=== PATIENT | female | born 1935 | race Hispanic/Latino ===

== ENCOUNTER 2017-02-13 13:05 | Emergency (ER) | payer MEDICARE, OTHER ==
[2017-02-13] MEDS ORDERED: NORCO 5/325 PO PRN (13:32)
[2017-02-13 13:37] VITALS: BP 107/58
[2017-02-13] MEDS ORDERED: BOOSTRIX IM ONE (13:48)
--- NOTE | 2017-02-13 13:57 | Emergency Department Report ---
HPI - General Chief Complaint: Fall Time Seen by Provider: 02/13/17 13:24 - HPI HPI: Room 7 The patient is an 81-year-old female presenting with a chief complaint of head injury after fall. The patient states she was working in the yard trying to pull up a plant when it gave way causing her to fall backwards and strike her head on a wooden rail. Patient denies loss of consciousness. The patient states the injury occurred at approximately noon. The patient is currently on Coumadin for atrial fibrillation. The patient gives her pain a score of 8/10 but currently refuses pain medication Location: Head Duration: Occurred at noon Quality: Headache Severity: 8/10 Modifying factors: [see above] Context: [see above] Mode of transportation: [not driving] ED Past Medical Hx - Past Medical History Previous Medical History?: Yes Hx Hypertension: Yes Hx Heart Attack/AMI: Yes Hx Congestive Heart Failure: Yes Hx Diabetes: Yes Hx Kidney Stones: Yes Hx COPD: Yes Additional medical history: Afib - Surgical History Past Surgical History?: Yes Hx Appendectomy: Yes - Family History Family history: no significant - Social History Smoking Status: Never Smoker Substance Use Type: None - Medications Home Medications: Home Medications Medication Instructions Recorded Confirmed Last Taken Type Isosorbide Mononitrate [Isosorbide 60 mg PO DAILY 12/27/13 06/29/15 06/29/15 History Mononitrate ER] Nefazodone HCl 100 mg PO BID 12/27/13 06/29/15 06/29/15 History Warfarin Sodium [Coumadin] 2 mg PO DAILY 12/27/13 06/29/15 06/29/15 History Atorvastatin Calcium [Lipitor] 20 mg PO QHS 01/30/15 06/29/15 06/28/15 History Aspirin [Aspirin BABY CHEW TAB] 81 mg PO DAILY 06/30/15 06/30/15 1 Day Ago History Digoxin [Lanoxin] 0.125 mg PO DAILY@1700 #30 tablet 07/02/15 Unknown Rx Budesonide [Pulmicort Respules] 0.5 mg IH Q12HRT #60 nebu 07/09/15 Unknown Rx Cefuroxime [Ceftin] 250 mg PO Q12HR #14 tablet 07/09/15 Unknown Rx Insulin Glargine [Lantus VIAL] 30 unit SUB-Q QHS #1 vial 07/09/15 06/29/1506/29 Rx Ipratropium/Albuterol Sulfate 1 ampul IH TIDRT PRN #60 ampul.neb 07/09/15 Unknown Rx [DUONEB *Not for PRN Use*] Metoprolol [Lopressor TAB] 0.5 tab PO TID #60 tablet 07/09/15 Unknown Rx amLODIPine [Norvasc] 0.5 tab PO QDAY #30 tablet 07/09/15 Unknown Rx Cephalexin [Keflex] 500 mg PO Q6H #28 cap 02/13/17 Unknown Rx traMADol [Ultram] 50 mg PO Q6HR PRN #14 tablet 02/13/17 Unknown Rx ED Review of Systems ROS: Stated complaint: LACERATION TO THE HEAD Other details as noted in HPI Comment: All other systems reviewed and negative Constitutional: denies: chills, fever Eyes: denies: eye pain, eye discharge, vision change ENT: denies: ear pain, throat pain Respiratory: denies: cough, shortness of breath, wheezing Cardiovascular: denies: chest pain, palpitations Endocrine: no symptoms reported Gastrointestinal: denies: abdominal pain, nausea, diarrhea Genitourinary: denies: urgency, dysuria, discharge Musculoskeletal: denies: back pain, joint swelling, arthralgia Skin: other (scalp laceration) Neurological: headache Psychiatric: denies: anxiety, depression Hematological/Lymphatic: denies: easy bleeding, easy bruising Physical Exam - Physical Exam Vital Signs: Vital Signs 02/13/17 13:36 Temperature 97.7 F Pulse Rate 66 Respiratory 16 Rate Blood Pressure 107/58 [Left] O2 Sat by Pulse 96 Oximetry Physical Exam: GENERAL: The patient is well-developed well-nourished female lying on stretcher with bandage in place on her head not appearing to be in acute distress. [] HEENT: Normocephalic. Extraocular motions are intact. Patient has moist mucous membranes. Approximately with 2.5 cm longitudinal laceration to the occiput. Hemostatic NECK: Supple. Recommend midline CHEST/LUNGS: Clear to auscultation. There is no respiratory distress noted. HEART/CARDIOVASCULAR: Regular. There is no tachycardia. There is no gallop rub or murmur. ABDOMEN: Abdomen is soft, nontender. Patient has normal bowel sounds. There is no abdominal distention. SKIN: There is an approximately 2.5 cm laceration to the occiput. There is no diaphoresis. NEURO: The patient is awake, alert, and oriented. The patient is cooperative. The patient has no focal neurologic deficits. The patient has normal speech. Cranial nerves II through XII grossly intact, no drift MUSCULOSKELETAL: There is no limitation range of motion. ED Course Vital Signs 02/13/17 13:36 Temperature 97.7 F Pulse Rate 66 Respiratory 16 Rate Blood Pressure 107/58 [Left] O2 Sat by Pulse 96 Oximetry ED Medical Decision Making - Lab Data Result diagrams: 02/13/17 13:32 02/13/17 13:32 - Radiology Data Radiology results: report reviewed (CT head, CT cervical spine), image reviewed (CT head, CT cervical spine) CT head (read by radiologist)-no posterior parietal scalp swelling/hematoma with stable age appropriate atrophy, mild microvascular changes and chronic sinusitis amongst others. No definite acute infarct, hemorrhage, mass effect or midline shift. The cervical spine (read by radiologist)-no acute cervical spine CT abnormality with multilevel degenerative changes again greatest at C5-C6. - Differential Diagnosis ICH, scalp laceration, closed head injury, cervical fracture Critical care attestation.: If time is entered above; I have spent that time in minutes in the direct care of this critically ill patient, excluding procedure time. ED Disposition Clinical Impression: Closed head injury, Occipital scalp laceration Disposition: - TO HOME OR SELFCARE Is pt being admited?: No Does the pt Need Aspirin: No Condition: Stable Instructions: Laceration (ED), Staple Care (ED) Additional Instructions: You should return to the emergency department or follow-up with your primary physician in 7 days to have your dustin removed. Return to the emergency department immediately should you develop worsening symptoms, fever, inability to tolerate food or liquid or any other concerns. Prescriptions: Cephalexin [Keflex] 500 mg PO Q6H #28 cap traMADol [Ultram] 50 mg PO Q6HR PRN #14 tablet PRN Reason: Pain Referrals: PRIMARY CARE,MD [Primary Care Provider] - 7-10 days (You should follow up with your primary physician or return to the emergency department in 7 days to have your dustin removed) Time of Disposition: 15:11 Blank Doc - Documentation Documentation: Laceration note Consent was obtained verbally Length of wound: 2.5 cm The wound was anesthetized with lidocaine 1% with epinephrine approximately I mL 's Wound was copiously irrigated with normal saline Site was prepped with peroxide Was closed with 3 dustin The wound had good approximation The wound had good hemostasis Antibiotic ointment was applied and the wound was dressed Staple removal discussed with patient and informed the pupils need to be removed in 7 days Laceration type: Simple There were no complications
[2017-02-13 14:04] LABS: BUN/Creatinine Ratio 26.08; Basophils % (Auto) 1.2 % (0.0-1.8); Calcium 9.1 mg/dL (8.4-10.2); Chloride 105.7 mmol/L (98-107); Eosinophils % (Auto) 5.8 % (0.0-4.3); Hematocrit 37.5 % (30.3-42.9); Hemoglobin 12.4 gm/dl (10.1-14.3); Mean Corpuscular HGB Conc 33 % (30-34); Mean Corpuscular Hemoglobin 32 pg (28-32); Mean Corpuscular Volume 97 fl (79-97); Platelet Count 232 K/mm3 (140-440); Potassium 4.9 mmol/L (3.6-5.0); Red Blood Count 3.86 M/mm3 (3.65-5.03); Red Cell Distribution Width 13.9 % (13.2-15.2); White Blood Count 7.1 K/mm3 (4.5-11.0)
[2017-02-13 14:12] LABS: INR 1.65 (0.87-1.13)
[2017-02-13 14:13] LABS: Partial Thromboplastin Time 32.2 Sec. (24.2-36.6)
--- NOTE | 2017-02-13 14:32 | Cat Scan Report ---
CT HEAD WITHOUT CONTRAST INDICATION: Fall, head laceration. COMPARISON: 06/21/2014. FINDINGS: Noncontrast head CT again demonstrates age appropriate ventricles and mildly enlarged sulci, more so bifrontal with extraaxial CSF spaces measuring up to 7 mm as on axial image 26, series 4. Mild periventricular hypodensities. No definite acute infarct, hemorrhage, mass effect or midline shift. No abnormal extra axial fluid collections. Normal posterior fossa with preserved basilar cisterns. Bilateral cataract surgery. Mild nasal septal deviation. Mild density/opacification of the right sphenoid sinus again seen. Mild bilateral maxillary sinus mucosal with wall thickening, more so on the right. Clear remainder imaged paranasal sinuses and mastoid air cells. Extensive atherosclerotic ICA and vertebral artery calcifications. Intact calvarium with mild hyperostosis frontalis interna. High right paramidline scalp swelling/hematoma posteriorly is new, axial image 49. CONCLUSION: New posterior parietal scalp swelling/hematoma with stable age appropriate atrophy, mild microvascular changes and chronic sinusitis, amongst others, as described. Thank you for the opportunity to participate in this patient's care.
[2017-02-13] MEDS ORDERED: XYLOCAINE 1%/ EPI 1:100,000 INFILTRATI ONE (14:42)
[2017-02-13] MEDS ORDERED: NACL 0.9% 500 ML IR ONE (14:42)
[2017-02-13] MEDS ORDERED: HYDROGEN PEROXIDE ONE (14:46)
--- NOTE | 2017-02-13 14:47 | Cat Scan Report ---
CT CERVICAL SPINE WITHOUT CONTRAST INDICATION: Fall, head laceration. COMPARISON: 06/21/[address] FINDINGS: Noncontrast axial, sagittal and coronal CT reconstructions through the cervical spine demonstrate mild right sphenoid sinus density. Clear mastoid air cells and imaged intracranial appearance. Streak artifact from few radiopaque dental material. Numerous missing teeth also seen. Assessment of the spinal canal compromised from C5 inferiorly due to artifact from shoulder soft tissues. Grossly intact craniocervical articulation with normal dens, predental space and prevertebral soft tissues. Normal posterior elements. Patent airway. Clear imaged lung apices. Normal size thyroid. On the obtained axial images: C2-C3 and C3-C4 demonstrate moderate to severe right and mild left facet arthropathy. Mild right neural foraminal narrowing. Slight, 1-2 mm anterolisthesis of C3 over C4. C4-C5 demonstrates moderate to severe bilateral facet arthropathy. Mild left neural foraminal narrowing. C5-C6 demonstrates severe disc narrowing. Degenerative spurring, greatest uncovertebral and left paracentral, possibly contacting/indenting the cord, axial image 99, series 6. Moderate to severe left and [id number] right neural foraminal narrowing. C6-C7 also demonstrates moderate disc narrowing. Diffuse spurring, more so anteriorly. No significant neural foraminal narrowing or large disc protrusion. C7-T1 suggest mild bilateral facet arthropathy. No significant neural foramina narrowing. CONCLUSION: No acute cervical spine CT abnormality with multilevel degenerative changes, again greatest at C5-C6 and few other findings, including right sphenoid sinus disease, as detailed above. Thank you for the opportunity to participate in this patient's care.
[2017-02-13] MEDS ORDERED: TRIPLE ANTIBIOTIC TP ONE (15:04)
== END 2017-02-13 15:31 | disposition home or self-care (01) ==
LOC: ED 13:05
DX: S01.01XA Laceration without foreign body of scalp, initial encounter (principal); I11.0 Hypertensive heart disease with heart failure; I50.9 Heart failure, unspecified; I25.2 Old myocardial infarction; E11.9 Type 2 diabetes mellitus without complications; J44.9 Chronic obstructive pulmonary disease, unspecified; Z79.01 Long term (current) use of anticoagulants; Z79.4 Long term (current) use of insulin; W18.30XA Fall on same level, unspecified, initial encounter; Y93.89 Activity, other specified; Y92.89 Other specified places as the place of occurrence of the external cause; Y99.8 Other external cause status
CPT/HCPCS: 36415; 70450; 72125; 80048; 80162; 85025; 85610; 85730; 90471; 90715; 99284; A6250

== ENCOUNTER 2017-02-20 11:00 | Emergency (ER) | payer MEDICARE, OTHER ==
--- NOTE | 2017-02-20 13:18 | Emergency Department Report ---
Suture/Staple Removal - [facility] Chief Complaint: Laceration/Recheck/Suture Stated Complaint: STAPLE REMOVAL Time Seen by Provider: 02/20/17 11:38 When Sutures or Dustin Placed: 5-7 Days Ago Wound Location: occipital scalp ED Review of Systems ROS: Stated complaint: STAPLE REMOVAL Other details as noted in HPI Constitutional: denies: chills, fever Eyes: denies: eye pain, eye discharge, vision change ENT: denies: ear pain, throat pain Respiratory: denies: cough, shortness of breath, wheezing Cardiovascular: denies: chest pain, palpitations Endocrine: no symptoms reported Gastrointestinal: denies: abdominal pain, nausea, diarrhea Genitourinary: denies: urgency, dysuria, discharge Musculoskeletal: denies: back pain, joint swelling, arthralgia Skin: denies: rash, lesions Neurological: denies: headache, weakness, paresthesias Psychiatric: denies: anxiety, depression Hematological/Lymphatic: denies: easy bleeding, easy bruising ED Past Medical Hx - Past Medical History Hx Hypertension: Yes Hx Heart Attack/AMI: Yes Hx Congestive Heart Failure: Yes Hx Diabetes: Yes Hx Kidney Stones: Yes Hx Asthma: No Hx COPD: Yes Additional medical history: Afib - Surgical History Hx Cholecystectomy: Yes Hx Appendectomy: Yes - Social History Smoking Status: Never Smoker Substance Use Type: None - Medications Home Medications: Home Medications Medication Instructions Recorded Confirmed Last Taken Type Isosorbide Mononitrate [Isosorbide 60 mg PO DAILY 12/27/13 06/29/15 06/29/15 History Mononitrate ER] Nefazodone HCl 100 mg PO BID 12/27/13 06/29/15 06/29/15 History Warfarin Sodium [Coumadin] 2 mg PO DAILY 12/27/13 06/29/15 06/29/15 History Atorvastatin Calcium [Lipitor] 20 mg PO QHS 01/30/15 06/29/15 06/28/15 History Aspirin [Aspirin BABY CHEW TAB] 81 mg PO DAILY 06/30/15 06/30/15 1 Day Ago History Digoxin [Lanoxin] 0.125 mg PO DAILY@1700 #30 tablet 07/02/15 Unknown Rx Budesonide [Pulmicort Respules] 0.5 mg IH Q12HRT #60 nebu 07/09/15 Unknown Rx Cefuroxime [Ceftin] 250 mg PO Q12HR #14 tablet 07/09/15 Unknown Rx Insulin Glargine [Lantus VIAL] 30 unit SUB-Q QHS #1 vial 07/09/15 06/29/1506/29 Rx Ipratropium/Albuterol Sulfate 1 ampul IH TIDRT PRN #60 ampul.neb 07/09/15 Unknown Rx [DUONEB *Not for PRN Use*] Metoprolol [Lopressor TAB] 0.5 tab PO TID #60 tablet 07/09/15 Unknown Rx amLODIPine [Norvasc] 0.5 tab PO QDAY #30 tablet 07/09/15 Unknown Rx Cephalexin [Keflex] 500 mg PO Q6H #28 cap 02/13/17 Unknown Rx traMADol [Ultram] 50 mg PO Q6HR PRN #14 tablet 02/13/17 Unknown Rx Suture Removal Exam - Exam General: Vital signs noted. No distress. Alert and acting appropriately. Wound: No Pathologic Erythema, No Tenderness, No Drainage, No Pus, No Wound Dehiscence Other Systems: All other systems reviewed and are unremarkable. GENERAL: The patient is a well-developed, well-nourished female in no apparent distress. Patient is alert and acting appropriately for age. Alert and oriented 3, no apparent distress, normal gait, atraumatic. HEENT: Head is normocephalic and atraumatic. PERRL, Extraocular muscles are intact. Pupils are equal, round, and reactive to light and accommodation. Nares appeared normal. Mouth is well hydrated and without lesions. Mucous membranes are moist. Posterior pharynx clear of any exudate or lesions. Mouth is well hydrated and without lesions. Tonsils not erythematous or swollen. Uvula midline. Tongue elevated. Mucous members are moist. Posterior pharynx clear, no exudate or lesions. Patent airways. NECK: Supple. No carotid bruits. No lymphadenopathy or thyromegaly.nontender. No meningitic signs are noted. LUNGS: Clear to auscultation. Non labor breathing. No intercostal retractions. Symmetrical with respiration, no wheezing, no rales, or crackles. HEART: Regular rate and rhythm without murmur, rubs or gallops. No reproducible. S1, S2 present, regular rate and rhythm without murmur, no rubs, no gallops. ABDOMEN: Soft, nontender, and nondistended. Positive bowel sounds. No hepatosplenomegaly was noted. No guarding or rebound tenderness, negative epigastric bruit. Negative psoas sign, negative kirkland sign, negative McBurneys sign EXTREMITIES: Without any cyanosis, clubbing, rash, lesions or edema. Peripheral pulses intact. Capillary refill less than 2 seconds. Full range of motion bilaterally. NEUROLOGIC: Cranial nerves II through XII are grossly intact. Alert and oriented x 3. Normal gait. Symmetrical strength and sensation. Reflexes 2+ throughout. Cerebellar testing normal. GCS score of 15. PSYCHIATRIC: Normal affect with no suicidal or homicidal ideations. Scalp; 3 dustin noted to the occipital scalp region. No swelling. No pus. No drainage. Nontender to touch. No cellulitis noted. ED Course Vital Signs 02/20/17 11:24 Temperature 97.9 F Pulse Rate 82 Respiratory 17 Rate Blood Pressure 101/69 O2 Sat by Pulse 95 Oximetry - Reevaluation(s) Reevaluation #1: 02/20/17 13:16 Patient is able to speak in full sentences with no signs of distress noted. ED Recheck MDM - Medical Decision Making This is a 81-year-old female that presents with stable removal. Patient received dustin last week 7 days ago. Total number of dustin is 3 to the occipital region. Patient stated also recent CT scan after the patient fell with normal findings. Patient denies any headache, chest pain, short of breath , fever, chills, pus, drainage, nausea or vomiting. Patient stated finish full course of the buttock that was prescribed. 3 dustin has been removed and patient thought well with no signs of distress. Critical care attestation.: If time is entered above; I have spent that time in minutes in the direct care of this critically ill patient, excluding procedure time. ED Disposition Clinical Impression: Removal of staple Disposition: DC-01 TO HOME OR SELFCARE Is pt being admited?: No Does the pt Need Aspirin: No Condition: Stable Instructions: Staple Care (ED) Additional Instructions: Follow-up with her primary care doctor in 3-5 days or symptoms such as pus, drainage, open laceration, stiff neck, headache, fever or chills return to the emergency room as soon as possible. Referrals: NORA IRVIN MD [Primary Care Provider] - 3-5 Days MAJOR CHAU MD [Staff Physician] - 3-5 Days [facility] [Outside] - 3-5 Days [facility] [Outside] - 3-5 Days
[2017-02-20 13:28] VITALS: BP 114/66
== END 2017-02-20 13:28 | disposition home or self-care (01) ==
LOC: ED 11:00
DX: Z48.02 Encounter for removal of sutures (principal)

== ENCOUNTER 2018-09-23 17:56 | Inpatient (IN) | payer MEDICARE, OTHER ==
--- NOTE | 2018-09-23 18:39 | Emergency Department Report ---
- General Chief complaint: Dyspnea/Respdistress Stated complaint: LIGHT HEADED/SWELLING IN LEG Time Seen by Provider: 09/23/18 18:19 Source: patient, RN notes reviewed, old records reviewed Mode of arrival: Wheelchair Limitations: Physical Limitation - History of Present Illness Initial comments: Nephrology: Dr Casey Information Technology Security Manager: Dr. Efrain Arora Past medical history: Atrial fibrillation, hypertension, chronic renal insufficiency, congestive heart failure, ejection fraction 15-20%, pulmonary hypertension, chronic respiratory failure, on home oxygen. 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 The patient endorses shortness of breath, chronic lower extremity swelling, and dizziness and sensation of unsteady gait. Symptoms are constant, worse with physical exertion, and decreased with rest. The patient reports chronic cough and chronic shortness of breath. She denies urinary symptoms. She denies hematemesis, right red blood per rectum. MD Complaint: generalized weakness -: Gradual, week(s) Location: generalized Consistency: constant Improves with: rest Worsens with: movement Associated Symptoms: loss of appetite, shortness of breath - Related Data Home Medications Medication Instructions Recorded Confirmed Last Taken Isosorbide Mononitrate [Isosorbide 60 mg PO DAILY 12/27/13 09/23/18 06/29/15 Mononitrate ER] Nefazodone HCl 100 mg PO BID 12/27/13 09/23/18 06/29/15 Aspirin [Aspirin BABY CHEW TAB] 81 mg PO DAILY 06/30/15 09/23/18 1 Day Ago ~06/29/15 Previous Rx's Medication Instructions Recorded Last Taken Type Budesonide [Pulmicort Respules] 0.5 mg IH Q12HRT #60 nebu 07/09/15 Unknown Rx Insulin Glargine [Lantus VIAL] 30 unit SUB-Q QHS #1 vial 07/09/15 06/29/15 Rx Ipratropium/Albuterol Sulfate 1 ampul IH TIDRT PRN #60 ampul.neb 07/09/15 Unknown Rx [DUONEB *Not for PRN Use*] amLODIPine [Norvasc] 0.5 tab PO QDAY #30 tablet 07/09/15 Unknown Rx traMADol [Ultram] 50 mg PO Q6HR PRN #14 tablet 02/13/17 Unknown Rx Allergies Allergy/AdvReac Type Severity Reaction Status Date / Time No Known Allergies Allergy Verified 09/23/18 18:01 ED Review of Systems ROS: Stated complaint: LIGHT HEADED/SWELLING IN LEG Other details as noted in HPI Constitutional: malaise Eyes: denies: vision change ENT: congestion. denies: epistaxis Respiratory: cough, shortness of breath Cardiovascular: edema. denies: chest pain Gastrointestinal: denies: abdominal pain, nausea, vomiting, hematemesis, melena, hematochezia Genitourinary: denies: dysuria Musculoskeletal: other (lower extremity swelling) Skin: denies: lesions Neurological: weakness ED Past Medical Hx - Past Medical History Hx Hypertension: Yes Hx Heart Attack/AMI: Yes Hx Congestive Heart Failure: Yes Hx Diabetes: Yes Hx Kidney Stones: Yes Hx Asthma: No Hx COPD: Yes Additional medical history: Afib - Surgical History Hx Cholecystectomy: Yes Hx Appendectomy: Yes - Social History Smoking Status: Never Smoker Substance Use Type: None - Medications Home Medications: Home Medications Medication Instructions Recorded Confirmed Last Taken Type Isosorbide Mononitrate [Isosorbide 60 mg PO DAILY 12/27/13 09/23/18 06/29/15 History Mononitrate ER] Nefazodone HCl 100 mg PO BID 12/27/13 09/23/18 06/29/15 History Aspirin [Aspirin BABY CHEW TAB] 81 mg PO DAILY 06/30/15 09/23/18 1 Day Ago History ~06/29/15 Budesonide [Pulmicort Respules] 0.5 mg IH Q12HRT #60 nebu 07/09/15 09/23/18 Unknown Rx Insulin Glargine [Lantus VIAL] 30 unit SUB-Q QHS #1 vial 07/09/15 09/23/18 06/29/15 Rx Ipratropium/Albuterol Sulfate 1 ampul IH TIDRT PRN #60 ampul.neb 07/09/15 09/23/18 Unknown Rx [DUONEB *Not for PRN Use*] amLODIPine [Norvasc] 0.5 tab PO QDAY #30 tablet 07/09/15 09/23/18 Unknown Rx traMADol [Ultram] 50 mg PO Q6HR PRN #14 tablet 02/13/17 09/23/18 Unknown Rx ED Physical Exam - General Limitations: Physical Limitation General appearance: alert, in no apparent distress - Head Head exam: Present: atraumatic, normocephalic - Eye Eye exam: Present: normal appearance, EOMI. Absent: nystagmus - ENT ENT exam: Present: normal exam, normal orophraynx, mucous membranes moist, normal external ear exam - Neck Neck exam: Present: normal inspection, full ROM. Absent: tenderness, meningismus - Respiratory Respiratory exam: Present: rales, rhonchi. Absent: respiratory distress - Cardiovascular Cardiovascular Exam: Present: regular rate, irregular rhythm, normal heart soun ds. Absent: bradycardia, tachycardia, systolic murmur, diastolic murmur, rubs, gallop - GI/Abdominal GI/Abdominal exam: Present: soft. Absent: distended, tenderness, guarding, rebound, rigid, pulsatile mass - Extremities Exam Extremities exam: Present: normal inspection, pedal edema (2+ edema in the lower extremities), other (2+ pulses noted in the bilateral upper, lower extremities. Compartments soft. No long bony tenderness. The pelvis is stable.). Absent: calf tenderness - Back Exam Back exam: Present: normal inspection, full ROM. Absent: tenderness, CVA tenderness (R), paraspinal tenderness, vertebral tenderness - Neurological Exam Neurological exam: Present: alert, oriented X3, other (Extraocular movements intact. Tongue midline. No facial droop. Facial sensation intact to light touch in the V1, V2, V3 distribution bilaterally. 5 and 5 strength in 4 extremities.. Sensation is intact to light touch in 4 extremities.). Absent: motor sensory deficit - Psychiatric Psychiatric exam: Present: normal affect, normal mood - Skin Skin exam: Present: warm, dry, intact, normal color. Absent: rash - Assessment Assessment Interval: Baseline - Level of Consciousness 1a. Level of Consciousness: alert/keenly responsive - LOC Questions 1b. LOC Questions: answers both correctly - LOC Command 1c. LOC Commands: performs tasks correctly - Best Gaze 2. Best Gaze: normal - Visual 3. Visual: no visual loss - Facial Palsy 4. Facial Palsy: normal symmetrical movement - Motor Arm 5b. Motor Arm Right: no drift 5a. Motor Arm Left: no drift - Motor Leg 6b. Motor Leg Right: no drift 6a. Motor Leg Left: no drift - Limb Ataxia 7. Limb Ataxia: absent - Sensory 8. Sensory: normal - Best Language 9. Best Language: no aphasia - Dysarthria 10. Dysarthria: normal - Extinction and Inattention 11. Extinction/Inattention: no abnormality - Scoring Total Score: 0 Stroke Severity: No Stroke Symptoms ED Course Vital Signs 09/23/18 09/23/18 09/23/18 18:19 18:46 19:35 Temperature 97.4 F L Pulse Rate 84 99 H 122 H Respiratory 18 19 Rate Blood Pressure 146/75 136/76 Blood Pressure 151/74 [Left] O2 Sat by Pulse 95 95 95 Oximetry - Reevaluation(s) Reevaluation #1: 09/23/18 20:03 Differential diagnosis, including but not limited to: Pneumonia, urinary tract infection, intra-abdominal bleeding, intracranial bleeding, retroperitoneal hematoma, deconditioning, congestive heart failure, renal insufficiency, cardiorenal syndrome Assessment and plan: 83-year-old female with multiple medical comorbidities, initially hypoxic, with crackles, rales, lower extremity edema, x-ray of the chest suggests bilateral pleural effusions, right greater than left, also corroborated on noncontrast CT scan. Extensive discussion had with patient and . The patient and report that she is currently full code. We will give the patient high-dose Lasix, discussed with her trolley collector on- call, and admit the patient to the medical service. Reevaluation #2: 09/23/18 21:16 Dr Parks accepts to the medical service - Consultations Consultation #1: 09/23/18 20:14 Discussed with nephrology consultation, Dr. Howard, whose group will follow in consultation. ED Medical Decision Making - Lab Data Result diagrams: 09/23/18 18:42 09/23/18 18:42 Vital Signs 09/23/18 09/23/18 09/23/18 18:19 18:46 19:35 Temperature 97.4 F L Pulse Rate 84 99 H 122 H Respiratory 18 19 Rate Blood Pressure 146/75 136/76 Blood Pressure 151/74 [Left] O2 Sat by Pulse 95 95 95 Oximetry Lab Results 09/23/18 09/23/18 09/23/18 Range/Units 18:21 18:42 18:42 WBC 8.1 (4.5-11.0) K/mm3 RBC 2.93 L (3.65-5.03) M/mm3 Hgb 9.2 L (10.1-14.3) gm/dl Hct 28.4 L (30.3-42.9) % MCV 97 (79-97) fl MCH 31 (28-32) pg MCHC 32 (30-34) % RDW 14.8 (13.2-15.2) % Plt Count 405 (140-440) K/mm3 Lymph % (Auto) 10.5 L (13.4-35.0) % [place] % (Auto) 7.5 H (0.0-7.3) % Eos % (Auto) 3.1 (0.0-4.3) % Baso % (Auto) 0.9 (0.0-1.8) % Lymph # 0.9 L (1.2-5.4) K/mm3 [place] # 0.6 (0.0-0.8) K/mm3 Eos # 0.3 (0.0-0.4) K/mm3 Baso # 0.1 (0.0-0.1) K/mm3 Seg Neutrophils % 78.0 H (40.0-70.0) % Seg Neutrophils # 6.4 (1.8-7.7) K/mm3 Sodium 140 (137-145) mmol/L Potassium 4.0 (3.6-5.0) mmol/L Chloride 97.9 L (98-107) mmol/L Carbon Dioxide 30 (22-30) mmol/L Anion Gap 16 mmol/L BUN 44 H (7-17) mg/dL Creatinine 2.4 H (0.7-1.2) mg/dL Estimated GFR 19 ml/min BUN/Creatinine Ratio 18 % Glucose 116 H (65-100) mg/dL POC Glucose 92 (70-105) Lactic Acid (0.7-2.0) mmol/L Calcium 9.6 (8.4-10.2) mg/dL Total Bilirubin 0.60 (0.1-1.2) mg/dL AST 16 (5-40) units/L ALT 8 (7-56) units/L Alkaline Phosphatase 69 (35-129) units/L NT-Pro-B Natriuret Pep 9661 H (0-900) pg/mL Total Protein 7.0 (6.3-8.2) g/dL Albumin 3.6 L (3.9-5) g/dL Albumin/Globulin Ratio 1.1 % TSH (0.270-4.200) mlU/mL Digoxin (0.9-2.0) ng/mL Salicylates (2.8-20.0) mg/dL Acetaminophen (10.0-30.0) ug/mL 09/23/18 09/23/18 09/23/18 Range/Units 18:42 18:42 18:42 WBC (4.5-11.0) K/mm3 RBC (3.65-5.03) M/mm3 Hgb (10.1-14.3) gm/dl Hct (30.3-42.9) % MCV (79-97) fl MCH (28-32) pg MCHC (30-34) % RDW (13.2-15.2) % Plt Count (140-440) K/mm3 Lymph % (Auto) (13.4-35.0) % [place] % (Auto) (0.0-7.3) % Eos % (Auto) (0.0-4.3) % Baso % (Auto) (0.0-1.8) % Lymph # (1.2-5.4) K/mm3 [place] # (0.0-0.8) K/mm3 Eos # (0.0-0.4) K/mm3 Baso # (0.0-0.1) K/mm3 Seg Neutrophils % (40.0-70.0) % Seg Neutrophils # (1.8-7.7) K/mm3 Sodium (137-145) mmol/L Potassium (3.6-5.0) mmol/L Chloride (98-107) mmol/L Carbon Dioxide (22-30) mmol/L Anion Gap mmol/L BUN (7-17) mg/dL Creatinine (0.7-1.2) mg/dL Estimated GFR ml/min BUN/Creatinine Ratio % Glucose (65-100) mg/dL POC Glucose (70-105) Lactic Acid 0.80 (0.7-2.0) mmol/L Calcium (8.4-10.2) mg/dL Total Bilirubin (0.1-1.2) mg/dL AST (5-40) units/L ALT (7-56) units/L Alkaline Phosphatase (35-129) units/L NT-Pro-B Natriuret Pep (0-900) pg/mL Total Protein (6.3-8.2) g/dL Albumin (3.9-5) g/dL Albumin/Globulin Ratio % TSH 1.400 (0.270-4.200) mlU/mL Digoxin 0.3 L (0.9-2.0) ng/mL Salicylates < 0.3 L (2.8-20.0) mg/dL Acetaminophen (10.0-30.0) ug/mL 09/23/18 Range/Units 18:49 WBC (4.5-11.0) K/mm3 RBC (3.65-5.03) M/mm3 Hgb (10.1-14.3) gm/dl Hct (30.3-42.9) % MCV (79-97) fl MCH (28-32) pg MCHC (30-34) % RDW (13.2-15.2) % Plt Count (140-440) K/mm3 Lymph % (Auto) (13.4-35.0) % [place] % (Auto) (0.0-7.3) % Eos % (Auto) (0.0-4.3) % Baso % (Auto) (0.0-1.8) % Lymph # (1.2-5.4) K/mm3 [place] # (0.0-0.8) K/mm3 Eos # (0.0-0.4) K/mm3 Baso # (0.0-0.1) K/mm3 Seg Neutrophils % (40.0-70.0) % Seg Neutrophils # (1.8-7.7) K/mm3 Sodium (137-145) mmol/L Potassium (3.6-5.0) mmol/L Chloride (98-107) mmol/L Carbon Dioxide (22-30) mmol/L Anion Gap mmol/L BUN (7-17) mg/dL Creatinine (0.7-1.2) mg/dL Estimated GFR ml/min BUN/Creatinine Ratio % Glucose (65-100) mg/dL POC Glucose (70-105) Lactic Acid (0.7-2.0) mmol/L Calcium (8.4-10.2) mg/dL Total Bilirubin (0.1-1.2) mg/dL AST (5-40) units/L ALT (7-56) units/L Alkaline Phosphatase (35-129) units/L NT-Pro-B Natriuret Pep (0-900) pg/mL Total Protein (6.3-8.2) g/dL Albumin (3.9-5) g/dL Albumin/Globulin Ratio % TSH (0.270-4.200) mlU/mL Digoxin (0.9-2.0) ng/mL Salicylates (2.8-20.0) mg/dL Acetaminophen < 5.0 L (10.0-30.0) ug/mL - EKG Data -: EKG Interpreted by Me - EKG Data 09/23/18 20:03 Atrial fibrillation, 91 bpm, normal axis, low voltage, QTC prolonged, T-wave inversions in the lateral leads, abnormal EKG, consistent with ST elevation myocardial infarction, appears unchanged from prior EKG from 06/29/2015. - Radiology Data Radiology results: pending, report reviewed, image reviewed Noncontrast CT scan of the brain is negative for acute disease. Critical Care Time: Yes Critical care time in (mins) excluding proc time.: 35 Critical care attestation.: If time is entered above; I have spent that time in minutes in the direct care of this critically ill patient, excluding procedure time. ED Disposition Clinical Impression: Cardiorenal syndrome with renal failure Disposition: OP ADMIT IP TO THIS HOSP Is pt being admited?: Yes Does the pt Need Aspirin: No Condition: Fair Referrals: PRIMARY CARE, [Primary Care Provider] - 3-5 Days
[2018-09-23 18:59] LABS: Basophils # (Auto) 0.1 K/mm3 (0.0-0.1); Basophils % (Auto) 0.9 % (0.0-1.8); Eosinophils # (Auto) 0.3 K/mm3 (0.0-0.4); Eosinophils % (Auto) 3.1 % (0.0-4.3); Hematocrit 28.4 % (30.3-42.9); Hemoglobin 9.2 gm/dl (10.1-14.3); Lymphocytes # (Auto) 0.9 K/mm3 (1.2-5.4); Lymphocytes % (Auto) 10.5 % (13.4-35.0); Mean Corpuscular HGB Conc 32 % (30-34); Mean Corpuscular Volume 97 fl (79-97); Monocytes # (Auto) 0.6 K/mm3 (0.0-0.8); Monocytes % (Auto) 7.5 % (0.0-7.3); Platelet Count 405 K/mm3 (140-440); Red Blood Count 2.93 M/mm3 (3.65-5.03); Red Cell Distribution Width 14.8 % (13.2-15.2)
[2018-09-23 19:20] LABS: Alanine Aminotransferase 8 units/L (7-56); Albumin 3.6 g/dL (3.9-5); BUN/Creatinine Ratio 18; Blood Urea Nitrogen 44 mg/dL (7-17); Calcium 9.6 mg/dL (8.4-10.2); Hemolysis Index 24
[2018-09-23] MEDS ORDERED: LASIX IV ONE (20:02)
--- NOTE | 2018-09-23 20:09 | Cat Scan Report ---
FINAL REPORT PROCEDURE: CT HEAD/BRAIN WO CON TECHNIQUE: Computerized tomography of the head was performed without contrast material. HISTORY: weakn dizzy COMPARISON: No prior studies are available for comparison. FINDINGS: Skull and scalp: Normal. Paranasal sinuses: Normal. Ventricles and subarachnoid spaces: Are prominent consistent with cerebral atrophy appropriate for pa tient's age.. Cerebrum: There is mild degree bilateral periventricular nonspecific white matter hypodensity most li abdirahman representing chronic microangiopathy. An acute intra-axial or extra-axial hemorrhage or mass eff ect is not identified.. Cerebellum and brainstem: No evidence of hemorrhage, acute infarction or mass. Vasculature: Atherosclerotic calcification is noted involving bilateral internal carotid arteries.. Comments: None. IMPRESSION: No acute intracranial abnormality
--- NOTE | 2018-09-23 20:23 | Cat Scan Report ---
FINAL REPORT PROCEDURE: CT ABD AND PELVIS WO CONTRAST TECHNIQUE: Computerized axial tomography of the abdomen and pelvis was performed without intravenous contrast. This study is performed without intravascular contrast material and its sensitivity for ab dominal and pelvic pathology, including neoplasms, inflammation, abscess, free fluid, thrombosis, art erial dissection and infarction, is reduced compared with a contrast enhanced study. HISTORY: LEFT MEDIAL THIGH ABSCESS COMPARISON: No prior studies are available for comparison. FINDINGS: Mild degree bilateral pleural effusions are noted right more than left. There is mild degree cardiome lisa with coronary arterial calcification. Liver, spleen, and adrenal glands are within normal limits . Bilateral kidneys demonstrate parenchymal thinning without any calculi or hydronephrosis. Urinary b ladder is minimally filled. A cystic lesion measuring 1.6 centimeters is noted in the midpole left ki dney. Right kidney demonstrates a slightly hyperdense lesion in the lower pole measuring 2.1 by 1.7 c entimeters. Aorta is of normal caliber. There is extensive diffuse atherosclerotic calcification of a rterial structures in the abdomen and pelvis. There is no free fluid or free air in the peritoneal ca vity. Status post cholecystectomy. Small bowel loops are within normal limits. Appendix is not distin ctly visualized. There are no inflammatory changes in the pericecal region. There is a small fat cont aining uncomplicated umbilical hernia measuring 2.1 Centimeters. Vertebral height is normal. IMPRESSION: Changes of renal parenchymal atrophy. 2.1 x 1.7 centimeter hyperdense lesion of lower pole right kidney may represent a mass lesion versus a hemorrhagic cyst as visualized on this noncontrast study. This may be further evaluated using Doppl er or post-contrast CT or MRI. 1.6 centimeters cystic lesion is noted in the left kidney which cannot be further evaluated on this n oncontrast study. No acute intra-abdominal or pelvic pathology Cardiomegaly Coronary arterial calcification Mild degree bilateral pleural effusions right more than left..
--- NOTE | 2018-09-23 20:26 | XRay Report ---
FINAL REPORT PROCEDURE: XR CHEST 1V AP TECHNIQUE: Chest radiograph anteroposterior view. CPT 65148 HISTORY: hx sob weakness COMPARISON: No prior studies are available for comparison. FINDINGS: Heart: Mild cardiomegaly is identified. Mediastinum/Vessels: Normal. Lungs/Pleural space: There is diffuse prominence of interstitial markings. Mild degree blunting of bi lateral costophrenic angles is noted.. Bony thorax: No acute osseous abnormality. Life support devices: None. IMPRESSION: Evidence of mild degree bilateral pleural effusions Mild cardiomegaly with prominent interstitial markings most likely represent CHF.
[2018-09-23 20:44] LABS: INR 4.73 (0.87-1.13)
[2018-09-23] MEDS ORDERED: TYLENOL ONE (21:22)
[2018-09-23 21:48] LABS: Bilirubin,Urine NEG (Negative); Blood,Urine NEG (Negative); Color,Urine Yellow (Yellow); RBC,Urine < 1.0 /HPF (0.0-6.0); WBC,Urine < 1.0 /HPF (0.0-6.0)
[2018-09-23] MEDS ORDERED: PROVENTIL IH PRN (22:18)
[2018-09-23] MEDS ORDERED: MILK OF MAGNESIA PO PRN (22:18)
[2018-09-23] MEDS ORDERED: TYLENOL PO PRN (22:18)
[2018-09-23] MEDS ORDERED: ZOFRAN IV PRN (22:18)
[2018-09-23] MEDS ORDERED: SODIUM CHLORIDE FLUSH SYRINGE 10 ML IV PRN (22:18)
[2018-09-23] MEDS ORDERED: D50W (25GM) Syringe IV PRN (23:54)
[2018-09-23] MEDS: MUCINEX ER PO SCH (23:55)
--- NOTE | 2018-09-24 00:26 | History and Physical Report ---
History of Present Illness Date of examination: 09/23/18 Date of admission: 09/23/18 22:19 Chief complaint: Shortness of breath History of present illness: Patient is a 83-year-old female with history of CHF who was told to the ED by her primary care physician because of shortness of breath on mild exertion and low oxygen saturation. History was obtained from both the patient and the was at the bedside. The stated that she has been having generalized weakness and that she fell about 2 weeks ago. She has positive history of dry cough, leg swelling, intermittent chest pain and lightheadedness. She denies diaphoresis, palpitation, fever, chills, orthopnea or PND. No headaches, nausea, vomiting, sore throat, runny nose or congestion, syncope or loss of consciousness. No abdominal pain, constipation, diarrhea, bleeding from any orifice, dysuria or frequency Past History Past Medical History: atrial fib, CAD, diabetes, heart failure, hypertension, renal failure Past Surgical History: appendectomy Social history: no significant social history (she denies tobacco, alcohol or illicit drug use) Family history: other (reviewed and noncontributory) Medications and Allergies Allergies Allergy/AdvReac Type Severity Reaction Status Date / Time No Known Allergies Allergy Verified 09/23/18 18:01 Home Medications Medication Instructions Recorded Confirmed Last Taken Type Isosorbide Mononitrate [Isosorbide 60 mg PO DAILY 12/27/13 09/23/18 06/29/15 History Mononitrate ER] Nefazodone HCl 100 mg PO BID 12/27/13 09/23/18 06/29/15 History Aspirin [Aspirin BABY CHEW TAB] 81 mg PO DAILY 06/30/15 09/23/18 1 Day Ago Hist ory ~06/29/15 Budesonide [Pulmicort Respules] 0.5 mg IH Q12HRT #60 nebu 07/09/15 09/23/18 Un known Rx Insulin Glargine [Lantus VIAL] 30 unit SUB-Q QHS #1 vial 07/09/15 09/23/18 06/29/15 Rx Ipratropium/Albuterol Sulfate 1 ampul IH TIDRT PRN #60 ampul.neb 07/09/15 09/23/18 Unknown Rx [DUONEB *Not for PRN Use*] amLODIPine [Norvasc] 0.5 tab PO QDAY #30 tablet 07/09/15 09/23/18 Unknown Rx traMADol [Ultram] 50 mg PO Q6HR PRN #14 tablet 02/13/17 09/23/18 Unknown Rx Active Meds: Active Medications Acetaminophen (Tylenol) 650 mg PO Q4H PRN PRN Reason: Pain MILD(1-3)/Fever >100.5/BRICENO Albuterol (Proventil) 2.5 mg IH Q4HRT PRN PRN Reason: Shortness Of Breath Dextrose (D50w (25gm) Syringe) 50 ml IV PRN PRN PRN Reason: Hypoglycemia Docusate Sodium (Colace) 100 mg PO BID [facility] Furosemide (Lasix) 40 mg IV BID [facility] Guaifenesin (Mucinex Er) 600 mg PO BID [facility] Insulin Glargine (Lantus) 10 units SUB-Q QHS [facility] Insulin Human Lispro (Humalog) 0 unit SUB-Q ACHS [facility]; Protocol Lisinopril (Zestril) 10 mg PO DAILY [facility] Magnesium Hydroxide (Milk Of Magnesia) 30 ml PO Q4H PRN PRN Reason: Constipation Metoprolol Succinate (Toprol Xl) 25 mg PO DAILY [facility] Ondansetron HCl (Zofran) 4 mg IV Q8H PRN PRN Reason: Nausea And Vomiting Sodium Chloride (Sodium Chloride Flush Syringe 10 Ml) 10 ml IV BID [facility] Sodium Chloride (Sodium Chloride Flush Syringe 10 Ml) 10 ml IV PRN PRN PRN Reason: LINE FLUSH Review of Systems All systems: negative (except as documented in HPI, all other systems were reviewed and negative) Exam - Constitutional Vitals: Temp Pulse Resp BP Pulse Ox 97.4 F L 99 H 21 124/81 98 09/23/18 18:19 09/23/18 23:18 09/23/18 23:18 09/23/18 23:18 09/23/18 23:18 General appearance: Present: no acute distress - EENT Eyes: Present: PERRL, EOM intact ENT: hearing intact, clear oral mucosa - Neck Neck: Present: supple, normal ROM - Respiratory Respiratory effort: normal Respiratory: bilateral: diminished, rales - Cardiovascular Rhythm: regular Heart Sounds: Present: S1 & S2 - Extremities Extremities: No edema Peripheral Pulses: within normal limits - Abdominal General gastrointestinal: Present: soft, non-tender, non-distended, normal bowel sounds Female genitourinary: Present: deferred - Integumentary Integumentary: Present: clear, warm, dry - Musculoskeletal Musculoskeletal: generalized weakness - Psychiatric Psychiatric: appropriate mood/affect, intact judgment & insight - Neurologic Neurologic: CNII-XII intact, moves all extremities Results - Labs CBC & Chem 7: 09/23/18 18:42 09/23/18 18:42 Labs: Laboratory Last Values WBC 8.1 K/mm3 (4.5-11.0) 09/23/18 18:42 RBC 2.93 M/mm3 (3.65-5.03) L 09/23/18 18:42 Hgb 9.2 gm/dl (10.1-14.3) L 09/23/18 18:42 Hct 28.4 % (30.3-42.9) L 09/23/18 18:42 MCV 97 fl (79-97) 09/23/18 18:42 MCH 31 pg (28-32) 09/23/18 18:42 MCHC 32 % (30-34) 09/23/18 18:42 RDW 14.8 % (13.2-15.2) 09/23/18 18:42 Plt Count 405 K/mm3 (140-440) 09/23/18 18:42 Lymph % (Auto) 10.5 % (13.4-35.0) L 09/23/18 18:42 [place] % (Auto) 7.5 % (0.0-7.3) H 09/23/18 18:42 Eos % (Auto) 3.1 % (0.0-4.3) 09/23/18 18:42 Baso % (Auto) 0.9 % (0.0-1.8) 09/23/18 18:42 Lymph # 0.9 K/mm3 (1.2-5.4) L 09/23/18 18:42 [place] # 0.6 K/mm3 (0.0-0.8) 09/23/18 18:42 Eos # 0.3 K/mm3 (0.0-0.4) 09/23/18 18:42 Baso # 0.1 K/mm3 (0.0-0.1) 09/23/18 18:42 Seg Neutrophils % 78.0 % (40.0-70.0) H 09/23/18 18:42 Seg Neutrophils # 6.4 K/mm3 (1.8-7.7) 09/23/18 18:42 PT 47.8 Sec. (12.2-14.9) H 09/23/18 20:06 INR 4.73 (0.87-1.13) H 09/23/18 20:06 APTT 50.7 Sec. (24.2-36.6) H 09/23/18 20:06 Sodium 140 mmol/L (137-145) 09/23/18 18:42 Potassium 4.0 mmol/L (3.6-5.0) 09/23/18 18:42 Chloride 97.9 mmol/L (98-107) L 09/23/18 18:42 Carbon Dioxide 30 mmol/L (22-30) 09/23/18 18:42 Anion Gap 16 mmol/L 09/23/18 18:42 BUN 44 mg/dL (7-17) H 09/23/18 18:42 Creatinine 2.4 mg/dL (0.7-1.2) H 09/23/18 18:42 Estimated GFR 19 ml/min 09/23/18 18:42 BUN/Creatinine Ratio 18 % 09/23/18 18:42 Glucose 116 mg/dL (65-100) H 09/23/18 18:42 POC Glucose 92 (70-105) 09/23/18 18:21 Lactic Acid 0.80 mmol/L (0.7-2.0) 09/23/18 18:42 Calcium 9.6 mg/dL (8.4-10.2) 09/23/18 18:42 Total Bilirubin 0.60 mg/dL (0.1-1.2) 09/23/18 18:42 AST 16 units/L (5-40) 09/23/18 18:42 ALT 8 units/L (7-56) 09/23/18 18:42 Alkaline Phosphatase 69 units/L (35-129) 09/23/18 18:42 Troponin T < 0.010 ng/mL (0.00-0.029) 09/23/18 22:40 NT-Pro-B Natriuret Pep 9661 pg/mL (0-900) H 09/23/18 18:42 Total Protein 7.0 g/dL (6.3-8.2) 09/23/18 18:42 Albumin 3.6 g/dL (3.9-5) L 09/23/18 18:42 Albumin/Globulin Ratio 1.1 % 09/23/18 18:42 TSH 1.400 mlU/mL (0.270-4.200) 09/23/18 18:42 Urine Color Yellow (Yellow) 09/23/18 20:06 Urine Turbidity Clear (Clear) 09/23/18 20:06 Urine pH 7.0 (5.0-7.0) 09/23/18 20:06 Ur Specific [place] 1.012 (1.003-1.030) 09/23/18 20:06 Urine Protein 100 mg/dl mg/dL (Negative) 09/23/18 20:06 Urine Glucose (UA) Neg mg/dL (Negative) 09/23/18 20:06 Urine Ketones Neg mg/dL (Negative) 09/23/18 20:06 Urine Blood Neg (Negative) 09/23/18 20:06 Urine Nitrite Neg (Negative) 09/23/18 20:06 Urine Bilirubin Neg (Negative) 09/23/18 20:06 Urine Urobilinogen 2.0 mg/dL (<2.0) 09/23/18 20:06 Ur Leukocyte Esterase Neg (Negative) 09/23/18 20:06 Urine WBC (Auto) < 1.0 /HPF (0.0-6.0) 09/23/18 20:06 Urine RBC (Auto) < 1.0 /HPF (0.0-6.0) 09/23/18 20:06 U Epithel Cells (Auto) < 1.0 /HPF (0-13.0) 09/23/18 20:06 Digoxin 0.3 ng/mL (0.9-2.0) L 09/23/18 18:42 Salicylates < 0.3 mg/dL (2.8-20.0) L 09/23/18 18:42 Acetaminophen < 5.0 ug/mL (10.0-30.0) L 09/23/18 18:49 Assessment and Plan Assessment and plan: 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 CAD, stable -Resume home meds Chronic kidney disease stage IV -Creatinine level is about baseline -Nephrology consulted in the ED DM1 -Controlled -On Lantus and SSI History of atrial fibrillation -Heart rate not well controlled -Resume home medications HTN -Stable, resume home meds Anemia of chronic disease -H&H stable Disposition: Patient will be placed on inpatient status. Discharge planning will depend on clinical course Time spent: 40 minutes
[2018-09-24 06:05] LABS: INR 3.45 (0.87-1.13)
[2018-09-24 06:20] LABS: BUN/Creatinine Ratio 17; Blood Urea Nitrogen 44 mg/dL (7-17); Calcium 9.5 mg/dL (8.4-10.2); Hemolysis Index 4
[2018-09-24] MEDS: HumaLOG SUB-Q SCH ×3 (07:33→22:04)
[2018-09-24] MEDS ORDERED: PROCRIT SUB-Q NR ×2 (09:04→11:00)
--- NOTE | 2018-09-24 09:05 | Consultation ---
History of Present Illness - History of Present Illness Thank you for the consultation ! Patient was evaluated today My assessment and plan are as follows; Chronic renal failure in a patient who is 83-year-old partly noncompliant with diet admitted with extubation of congestive heart failure her creatinine is currently at her baseline 2.6, it has been as high as close to 4 in the past Anemia in chronic kidney disease current hemoglobin 9.2 we will give erythropoietin 20,000 units subcutaneous time 1 Congestive heart failure exacerbation. BNP 9661, she can be diuresed as long as her creatinine stays under 3.0 Dietary noncompliance: Patient counseled and educated Malnutrition present upon admission Proteinuria 100 mg per DL and random specimen will do a protein creatinine ratio here Patient was adequately counseled and educated regarding multiple renal related issues. Renal prognosis remains guarded at this time All renal related questions were answered and simple [place] pertinent lab studies as well as imaging results were also discussed with patient We will continue to follow and make recommendations from renal standpoint. Thank you for the consultation Author: Joselito Casey M.D. [facility], [address] [place] [address] Tel; [phone] Source of information: From patient , clinic record old chart History of present illness Patient is a pleasant 83-year-old female who has known history of chronic kidney disease stage IV for which she is currently being followed by our office. Patient has been admitted here with shortness of breath and has been noted to be in congestive heart failure her creatinine is currently at her baseline which is in mid twos she does have a history of multiple health issues including severe cardiomyopathy ejection fraction 20% range with pulmonary hypertension and chronic kidney disease podiatry compliance has been very poor Past medical history significant for Chronic kidney disease stage IV Congestive heart failure Severe cardiomyopathy ejection fraction 20% Pulmonary hypertension Chronic respiratory failure oxygen dependent Atrial fibrillation Home medication current medication: Reviewed Allergies: Reviewed Social history/family history: Reviewed Review of systems: Positive for shortness of breath dyspnea on exertion shortness of breath upon laying down leg swelling no fevers chills dry cough All other review of system negative Physical examination Vitals: Reviewed General: No acute distress HEENT: Oral mucosa moist no pallor or icterus Neck: Supple without any JVD thyromegaly or nodular mass Chest: bilateral basilar crackles Heart: Regular rate and rhythm S1-S2 heard no S3-S4 Abdomen: Soft nontender, bowel sounds present no renal bruit no suprapubic masses no CVA tenderness noted Extremity: bilateral 1+ edema dry skin no peripheral cyanosis Endocrine: Thyroid not enlarged Psychiatric: No agitation and aggression noted Musculoskeletal: No joint effusion noted Labs and x-rays: Reviewed from this admission Past History Past Medical History: atrial fib, CAD, diabetes, heart failure, hypertension, renal failure Past Surgical History: appendectomy Social history: no significant social history (she denies tobacco, alcohol or illicit drug use) Family history: other (reviewed and noncontributory) Medications and Allergies Allergies Allergy/AdvReac Type Severity Reaction Status Date / Time No Known Allergies Allergy Verified 09/23/18 18:01 Home Medications Medication Instructions Recorded Confirmed Last Taken Type Isosorbide Mononitrate [Isosorbide 60 mg PO DAILY 12/27/13 09/23/18 06/29/15 History Mononitrate ER] Nefazodone HCl 100 mg PO BID 12/27/13 09/23/18 06/29/15 History Aspirin [Aspirin BABY CHEW TAB] 81 mg PO DAILY 06/30/15 09/23/18 1 Day Ago H istory ~06/29/15 Budesonide [Pulmicort Respules] 0.5 mg IH Q12HRT #60 nebu 07/09/15 09/23/18 Unknown Rx Insulin Glargine [Lantus VIAL] 30 unit SUB-Q QHS #1 vial 07/09/15 09/23/18 06/29/15 Rx Ipratropium/Albuterol Sulfate 1 ampul IH TIDRT PRN #60 ampul.neb 07/09/15 09/23/18 Unknown Rx [DUONEB *Not for PRN Use*] amLODIPine [Norvasc] 0.5 tab PO QDAY #30 tablet 07/09/15 09/23/18 Unknown Rx traMADol [Ultram] 50 mg PO Q6HR PRN #14 tablet 02/13/17 09/23/18 Unknown Rx Active Meds: Active Medications Acetaminophen (Tylenol) 650 mg PO Q4H PRN PRN Reason: Pain MILD(1-3)/Fever >100.5/BRICENO Last Admin: 09/23/18 22:18 Dose: 650 mg Documented by: Albuterol (Proventil) 2.5 mg IH Q4HRT PRN PRN Reason: Shortness Of Breath Dextrose (D50w (25gm) Syringe) 50 ml IV PRN PRN PRN Reason: Hypoglycemia Docusate Sodium (Colace) 100 mg PO BID [facility] Epoetin Man (Procrit) 20,000 unit SUB-Q ONCE ONE Stop: 09/24/18 09:05 Furosemide (Lasix) 40 mg IV BID [facility] Guaifenesin (Mucinex Er) 600 mg PO BID [facility] Last Admin: 09/23/18 23:55 Dose: Not Given Documented by: Insulin Glargine (Lantus) 10 units SUB-Q QHS [facility] Insulin Human Lispro (Humalog) 0 unit SUB-Q ACHS [facility]; Protocol Lisinopril (Zestril) 10 mg PO DAILY [facility] Magnesium Hydroxide (Milk Of Magnesia) 30 ml PO Q4H PRN PRN Reason: Constipation Metoprolol Succinate (Toprol Xl) 25 mg PO DAILY [facility] Ondansetron HCl (Zofran) 4 mg IV Q8H PRN PRN Reason: Nausea And Vomiting Sodium Chloride (Sodium Chloride Flush Syringe 10 Ml) 10 ml IV BID [facility] Sodium Chloride (Sodium Chloride Flush Syringe 10 Ml) 10 ml IV PRN PRN PRN Reason: LINE FLUSH Exam - Vital Signs Vital signs: Vital Signs Temp Pulse Resp BP Pulse Ox 97.4 F L 84 18 151/74 95 09/23/18 18:19 09/23/18 18:19 09/23/18 18:19 09/23/18 18:19 09/23/18 18:19 Results - Lab Results 09/23/18 18:42 09/25/18 04:58 Most recent lab results Calcium 9.5 mg/dL (8.4-10.2) 09/24/18 05:21 Magnesium 1.70 mg/dL (1.7-2.3) 09/24/18 05:21
[2018-09-24] MEDS: COLACE PO SCH ×2 (10:33→22:06)
[2018-09-24] MEDS: ZESTRIL PO SCH (10:33)
[2018-09-24] MEDS: LASIX IV SCH ×2 (10:33→22:04)
[2018-09-24] MEDS: MUCINEX ER PO SCH ×2 (10:33→22:05)
[2018-09-24] MEDS: SODIUM CHLORIDE FLUSH SYRINGE 10 ML IV SCH ×2 (10:33→22:06)
--- NOTE | 2018-09-24 10:55 | Consultation ---
Addendum entered and electronically signed by ZORAIDA GROSSMAN MD 09/24/18 11:08: Patient seen and examined Shortness of breath - reason for admission Acute systolic heart failure Chronic renal failure Possible hemorrhagic renal cyst on CT abdomen Cardiomyopathy, ischemic MPI 09/2017 - Fixed apical defect, no ischemia Echo 09/2017 - EF 20-25% with RWMA NSVT on tele Permanent atrial fibrillation Recommendations: Resume carvedilol Hold xarelto due to possible hemorrhagic renal cyst on CT abdomen Will defer diuresis to renal given advanced renal disease Conservative cardiac management Original Note: History of Present Illness Consult date: 09/24/18 Consult reason: other (NSVT) History of present illness: Patient is an 83 year old woman who was sent from her pcp office to the emergency department with shortness of breath. Patient reports shortness of breath has been ongoing for several weeks. She denies chest pain and palpitations. A chest x-ray reports mild cardiomegaly with evidence of interstitial edema. An ECG shows atrial fibrillation with a well controlled ventricular rate. Patient has multiple medical problems. She has dilated cardiomyopathy and small vessel CAD by cardiac cath in 2004. Her latest cardiac workup was done a year ago. She had a persantine thallium stress test that reports a fixed anterior, septal and apical defect, no ischemia, ejection fraction 25% by echocardiogram. She also has permanent atrial fibrillation and in on xarelto for oral anticoagulation. Co-morbidities includes chronic kidney disease, diabetes, hypertension and hyperlipidemia. Past History Past Medical History: atrial fib, CAD, diabetes, heart failure, hypertension, renal failure Past Surgical History: appendectomy Social history: no significant social history (she denies tobacco, alcohol or illicit drug use) Family history: other (reviewed and noncontributory) Medications and Allergies Allergies Allergy/AdvReac Type Severity Reaction Status Date / Time No Known Allergies Allergy Verified 09/23/18 18:01 Home Medications Medication Instructions Recorded Confirmed Last Taken Type Isosorbide Mononitrate [Isosorbide 60 mg PO DAILY 12/27/13 09/23/18 06/29/15 History Mononitrate ER] Nefazodone HCl 100 mg PO BID 12/27/13 09/23/18 06/29/15 History Aspirin [Aspirin BABY CHEW TAB] 81 mg PO DAILY 06/30/15 09/23/18 1 Day Ago History ~06/29/15 Budesonide [Pulmicort Respules] 0.5 mg IH Q12HRT #60 nebu 07/09/15 09/23/18 Unknown Rx Insulin Glargine [Lantus VIAL] 30 unit SUB-Q QHS #1 vial 07/09/15 09/23/18 06/29/15 Rx Ipratropium/Albuterol Sulfate 1 ampul IH TIDRT PRN #60 ampul.neb 07/09/15 09/23/18 Unknown Rx [DUONEB *Not for PRN Use*] amLODIPine [Norvasc] 0.5 tab PO QDAY #30 tablet 07/09/15 09/23/18 Unknown Rx traMADol [Ultram] 50 mg PO Q6HR PRN #14 tablet 02/13/17 09/23/18 Unknown Rx Active Meds: Active Medications Acetaminophen (Tylenol) 650 mg PO Q4H PRN PRN Reason: Pain MILD(1-3)/Fever >100.5/BRICENO Last Admin: 09/23/18 22:18 Dose: 650 mg Documented by: Albuterol (Proventil) 2.5 mg IH Q4HRT PRN PRN Reason: Shortness Of Breath Dextrose (D50w (25gm) Syringe) 50 ml IV PRN PRN PRN Reason: Hypoglycemia Docusate Sodium (Colace) 100 mg PO BID [facility] Last Admin: 09/24/18 10:33 Dose: 100 mg Documented by: Epoetin Man (Procrit) 20,000 unit SUB-Q ONCE NR Stop: 09/24/18 16:00 Furosemide (Lasix) 40 mg IV BID [facility] Last Admin: 09/24/18 10:33 Dose: 40 mg Documented by: Guaifenesin (Mucinex Er) 600 mg PO BID [facility] Last Admin: 09/24/18 10:33 Dose: 600 mg Documented by: Insulin Glargine (Lantus) 10 units SUB-Q QHS [facility] Insulin Human Lispro (Humalog) 0 unit SUB-Q [facility]; Protocol Lisinopril (Zestril) 10 mg PO DAILY [facility] Last Admin: 09/24/18 10:33 Dose: 10 mg Documented by: Magnesium Hydroxide (Milk Of Magnesia) 30 ml PO Q4H PRN PRN Reason: Constipation Metoprolol Succinate (Toprol Xl) 25 mg PO DAILY [facility] Ondansetron HCl (Zofran) 4 mg IV Q8H PRN PRN Reason: Nausea And Vomiting Sodium Chloride (Sodium Chloride Flush Syringe 10 Ml) 10 ml IV BID [facility] Last Admin: 09/24/18 10:33 Dose: 10 ml Documented by: Sodium Chloride (Sodium Chloride Flush Syringe 10 Ml) 10 ml IV PRN PRN PRN Reason: LINE FLUSH Physical Examination Vital Signs Temp Pulse Resp BP Pulse Ox 97.4 F L 84 18 151/74 95 09/23/18 18:19 09/23/18 18:19 09/23/18 18:19 09/23/18 18:19 09/23/18 18:19 General appearance: no acute distress HEENT: Positive: PERRL Neck: Positive: trachea midline Cardiac: Positive: irregularly irregular Lungs: Positive: Decreased Breath Sounds Neuro: Positive: Grossly Intact, Weakness Extremities: Absent: edema Results 09/23/18 18:42 09/24/18 05:21 Cardiac Enzymes 09/23/18 Range/Units 18:42 AST 16 (5-40) units/L Coagulation 09/23/18 09/23/18 09/24/18 Range/Units 20:06 20:06 05:21 PT 47.8 H 37.2 H (12.2-14.9) Sec. INR 4.73 H 3.45 H (0.87-1.13) APTT 50.7 H (24.2-36.6) Sec. CBC 09/23/18 Range/Units 18:42 WBC 8.1 (4.5-11.0) K/mm3 RBC 2.93 L (3.65-5.03) M/mm3 Hgb 9.2 L (10.1-14.3) gm/dl Hct 28.4 L (30.3-42.9) % Plt Count 405 (140-440) K/mm3 Lymph # 0.9 L (1.2-5.4) K/mm3 [place] # 0.6 (0.0-0.8) K/mm3 Eos # 0.3 (0.0-0.4) K/mm3 Baso # 0.1 (0.0-0.1) K/mm3 Comprehensive Metabolic Panel 09/23/18 09/24/18 Range/Units 18:42 05:21 Sodium 140 144 (137-145) mmol/L Potassium 4.0 3.7 (3.6-5.0) mmol/L Chloride 97.9 L 100.7 (98-107) mmol/L Carbon Dioxide 30 31 H (22-30) mmol/L BUN 44 H 44 H (7-17) mg/dL Creatinine 2.4 H 2.6 H (0.7-1.2) mg/dL Glucose 116 H 92 (65-100) mg/dL Calcium 9.6 9.5 (8.4-10.2) mg/dL AST 16 (5-40) units/L ALT 8 (7-56) units/L Alkaline Phosphatase 69 (35-129) units/L Total Protein 7.0 (6.3-8.2) g/dL Albumin 3.6 L (3.9-5) g/dL Assessment and Plan Acute systolic heart failure Chronic kidney disease abdomen CT reports evidence of right kidney mass versus hemorrhagic cyst Hypertension Diabetes Ischemic cardiomyopathy, EF 25% no ischemia by MPI 09/2017 Hx of Small vessel CAD
--- NOTE | 2018-09-24 16:02 | Progress Note ---
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 CAD, stable -Resume home meds Chronic kidney disease stage IV -Creatinine level is about baseline -Nephrology consulted in the ED and recommend to diurese as long as C creatinine is below 2 DM1 -Controlled -On Lantus and SSI History of atrial fibrillation - continue carvedilol HTN -Stable, resume home meds Anemia of chronic disease -H&H stable -Given epogen by nephrology Disposition: per clinical course History Interval history: Patient was seen and developed this morning, patient's SOB is getting better. Hospitalist Physical - Physical exam Narrative exam: Not in cardiopulmonary distress. The patient appeared well nourished and normally developed. Vital signs as documented. Head exam is unremarkable. No scleral icterus . Neck is without jugular venous distension, thyromegaly, or carotid bruits. Lungs are clear to auscultation. Cardiac exam reveals regular rate and Rhythm. First and second heart sounds normal. No murmurs, rubs or gallops. Abdominal exam reveals normal bowel sounds, no masses, no organomegaly and no aortic enlargement. Extremities are nonedematous and both femoral and pedal pulses are normal. 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 No focal weakness. - Constitutional Vitals: Temp Pulse Resp BP Pulse Ox 98.2 F 113 H 18 130/65 97 09/24/18 12:10 09/24/18 12:11 09/24/18 12:10 09/24/18 12:10 09/24/18 12:11 General appearance: Present: no acute distress Results - Labs CBC & Chem 7: 09/23/18 18:42 09/24/18 05:21 Labs: Laboratory Last Values WBC 8.1 K/mm3 (4.5-11.0) 09/23/18 18:42 RBC 2.93 M/mm3 (3.65-5.03) L 09/23/18 18:42 Hgb 9.2 gm/dl (10.1-14.3) L 09/23/18 18:42 Hct 28.4 % (30.3-42.9) L 09/23/18 18:42 MCV 97 fl (79-97) 09/23/18 18:42 MCH 31 pg (28-32) 09/23/18 18:42 MCHC 32 % (30-34) 09/23/18 18:42 RDW 14.8 % (13.2-15.2) 09/23/18 18:42 Plt Count 405 K/mm3 (140-440) 09/23/18 18:42 Lymph % (Auto) 10.5 % (13.4-35.0) L 09/23/18 18:42 [place] % (Auto) 7.5 % (0.0-7.3) H 09/23/18 18:42 Eos % (Auto) 3.1 % (0.0-4.3) 09/23/18 18:42 Baso % (Auto) 0.9 % (0.0-1.8) 09/23/18 18:42 Lymph # 0.9 K/mm3 (1.2-5.4) L 09/23/18 18:42 [place] # 0.6 K/mm3 (0.0-0.8) 09/23/18 18:42 Eos # 0.3 K/mm3 (0.0-0.4) 09/23/18 18:42 Baso # 0.1 K/mm3 (0.0-0.1) 09/23/18 18:42 Seg Neutrophils % 78.0 % (40.0-70.0) H 09/23/18 18:42 Seg Neutrophils # 6.4 K/mm3 (1.8-7.7) 09/23/18 18:42 PT 37.2 Sec. (12.2-14.9) H 09/24/18 05:21 INR 3.45 (0.87-1.13) H 09/24/18 05:21 APTT 50.7 Sec. (24.2-36.6) H 09/23/18 20:06 Sodium 144 mmol/L (137-145) 09/24/18 05:21 Potassium 3.7 mmol/L (3.6-5.0) 09/24/18 05:21 Chloride 100.7 mmol/L (98-107) 09/24/18 05:21 Carbon Dioxide 31 mmol/L (22-30) H 09/24/18 05:21 Anion Gap 16 mmol/L 09/24/18 05:21 BUN 44 mg/dL (7-17) H 09/24/18 05:21 Creatinine 2.6 mg/dL (0.7-1.2) H 09/24/18 05:21 Estimated GFR 17 ml/min 09/24/18 05:21 BUN/Creatinine Ratio 17 % 09/24/18 05:21 Glucose 92 mg/dL (65-100) 09/24/18 05:21 POC Glucose 103 (70-105) 09/24/18 12:07 Lactic Acid 0.80 mmol/L (0.7-2.0) 09/23/18 18:42 Calcium 9.5 mg/dL (8.4-10.2) 09/24/18 05:21 Magnesium 1.70 mg/dL (1.7-2.3) 09/24/18 05:21 Total Bilirubin 0.60 mg/dL (0.1-1.2) 09/23/18 18:42 AST 16 units/L (5-40) 09/23/18 18:42 ALT 8 units/L (7-56) 09/23/18 18:42 Alkaline Phosphatase 69 units/L (35-129) 09/23/18 18:42 Troponin T < 0.010 ng/mL (0.00-0.029) 09/24/18 05:21 NT-Pro-B Natriuret Pep 9661 pg/mL (0-900) H 09/23/18 18:42 Total Protein 7.0 g/dL (6.3-8.2) 09/23/18 18:42 Albumin 3.6 g/dL (3.9-5) L 09/23/18 18:42 Albumin/Globulin Ratio 1.1 % 09/23/18 18:42 TSH 1.400 mlU/mL (0.270-4.200) 09/23/18 18:42 Urine Color Yellow (Yellow) 09/23/18 20:06 Urine Turbidity Clear (Clear) 09/23/18 20:06 Urine pH 7.0 (5.0-7.0) 09/23/18 20:06 Ur Specific [place] 1.012 (1.003-1.030) 09/23/18 20:06 Urine Protein 100 mg/dl mg/dL (Negative) 09/23/18 20:06 Urine Glucose (UA) Neg mg/dL (Negative) 09/23/18 20:06 Urine Ketones Neg mg/dL (Negative) 09/23/18 20:06 Urine Blood Neg (Negative) 09/23/18 20:06 Urine Nitrite Neg (Negative) 09/23/18 20:06 Urine Bilirubin Neg (Negative) 09/23/18 20:06 Urine Urobilinogen 2.0 mg/dL (<2.0) 09/23/18 20:06 Ur Leukocyte Esterase Neg (Negative) 09/23/18 20:06 Urine WBC (Auto) < 1.0 /HPF (0.0-6.0) 09/23/18 20:06 Urine RBC (Auto) < 1.0 /HPF (0.0-6.0) 09/23/18 20:06 U Epithel Cells (Auto) < 1.0 /HPF (0-13.0) 09/23/18 20:06 Digoxin 0.3 ng/mL (0.9-2.0) L 09/23/18 18:42 Salicylates < 0.3 mg/dL (2.8-20.0) L 09/23/18 18:42 Acetaminophen < 5.0 ug/mL (10.0-30.0) L 09/23/18 18:49
[2018-09-24] MEDS: LANTUS SUB-Q SCH (22:05)
[2018-09-24] MEDS: TOPROL XL PO SCH (22:27)
[2018-09-25 05:59] LABS: Calcium 9.8 mg/dL (8.4-10.2)
[2018-09-25] MEDS: HumaLOG SUB-Q SCH ×4 (07:03→23:10)
--- NOTE | 2018-09-25 08:38 | Progress Note ---
Subjective Interval history: Patient was seen today for follow-up of multiple renal related issues No complaints of any chest pain pressure or shortness of breath she is feeling better is at bedside Shortness of breath much better Creatinine elevated Interdisciplinary notes that also reviewed Events of 24 hours vitals labs intake output medications were reviewed Past medical history: Reviewed Family history: Reviewed Social history: Reviewed Allergies: Reviewed Physical examination: Vitals: Reviewed HEENT: No pallor or icterus oral mucosa moist Neck: Supple no JVD no thyromegaly Chest: Bilateral clear to auscultation anteriorly Heart: Regular rate and rhythm S1-S2 heard no S3-S4 Abdomen: Soft nontender no voluntary guarding rigidity rebound Extremity: Dry skin less than 1+ peripheral edema Psychiatric: No evidence of agitation and aggression noted Dermatology: No petechial rashes Labs and x-rays: Reviewed from today Assessment and plan Chronic kidney disease stage IV patient admitted with congestive heart failure, creatinine appears to be slightly elevated but patient is currently receiving 40 mg of Lasix twice a day Hypertension would like to discontinue lisinopril given that we are diuresing her once the diagnosis is complete and renal function is stable this can be considered in the outpatient setting and currently should be avoided anemia and chronic kidney disease, erythropoietin 20,0001 Monitor renal function closely, no indication for renal replacement therapy Patient as well as her were adequately counseled and educated regarding all the renal-related issues If patient is stable Lasix can be switched to 80 mg daily by mouth, depending on the creatinine if it is still under 3.0 She can be considered for discharge tomorrow if otherwise stable without ANNA inhibitor due to severity of renal failure, risk is more than the benefit This can be considered in the outpatient setting when her renal function stabilizes Patient was adequately counseled and educated regarding all the renal related issues Laboratory studies, pertinent for discussed with patient All questions were answered and simple Latvian We'll continue to follow and make recommendation for renal standpoint Objective - Vital Signs Vital signs: Vital Signs - 12hr 09/24/18 09/24/18 09/25/18 22:27 23:55 04:04 Temperature 98.0 F 98.0 F Pulse Rate 109 H 131 H 125 H Respiratory 18 18 Rate Blood Pressure 140/75 147/76 142/78 O2 Sat by Pulse 91 90 Oximetry 09/25/18 07:15 Temperature 97.5 F L Pulse Rate 102 H Respiratory 18 Rate Blood Pressure 149/72 O2 Sat by Pulse 92 Oximetry - Lab 09/23/18 18:42 09/25/18 04:58 Most recent lab results Calcium 9.8 mg/dL (8.4-10.2) 09/25/18 04:58 Magnesium 1.70 mg/dL (1.7-2.3) 09/24/18 05:21 Medications & Allergies - Medications Allergies/Adverse Reactions: Allergies No Known Allergies Allergy (Verified 09/23/18 18:01) Home Medications: Home Medications Medication Instructions Recorded Confirmed Last Taken Type Isosorbide Mononitrate [Isosorbide 60 mg PO DAILY 12/27/13 09/23/18 06/29/15 His tory Mononitrate ER] Nefazodone HCl 100 mg PO BID 12/27/13 09/23/18 06/29/15 History Aspirin [Aspirin BABY CHEW TAB] 81 mg PO DAILY 06/30/15 09/23/18 1 Day Ago History ~06/29/15 Budesonide [Pulmicort Respules] 0.5 mg IH Q12HRT #60 nebu 07/09/15 09/23/18 Unknown Rx Insulin Glargine [Lantus VIAL] 30 unit SUB-Q QHS #1 vial 07/09/15 09/23/18 06/29/15 Rx Ipratropium/Albuterol Sulfate 1 ampul IH TIDRT PRN #60 ampul.neb 07/09/15 09/23/18 Unknown Rx [DUONEB *Not for PRN Use*] amLODIPine [Norvasc] 0.5 tab PO QDAY #30 tablet 07/09/15 09/23/18 Unknown Rx traMADol [Ultram] 50 mg PO Q6HR PRN #14 tablet 02/13/17 09/23/18 Unknown Rx Active Medications: Generic Name Dose Route Start Last Admin Trade Name Freq PRN Reason Stop Dose Admin Acetaminophen 650 mg 09/23/18 22:18 09/23/18 22:18 Tylenol PO 650 mg Q4H PRN Administration Pain MILD(1-3)/Fever >100.5/BRICENO Albuterol 2.5 mg 09/23/18 22:18 Proventil IH Q4HRT PRN Shortness Of Breath Dextrose 50 ml 09/23/18 23:54 D50w (25gm) Syringe IV PRN PRN Hypoglycemia Docusate Sodium 100 mg 09/24/18 10:00 09/24/18 22:06 Colace PO Not Given BID [facility] Furosemide 40 mg 09/24/18 10:00 09/24/18 22:04 Lasix IV 40 mg BID GREG Administration Guaifenesin 600 mg 09/23/18 23:00 09/24/18 22:05 Mucinex Er PO 600 mg BID GREG Administration Insulin Glargine 10 units 09/24/18 22:00 09/24/18 22:05 Lantus SUB-Q 10 units QHS GREG Administration Insulin Human Lispro 0 unit 09/24/18 07:30 09/24/18 22:04 Humalog SUB-Q Not Given ACHS [facility] Protocol Lisinopril 10 mg 09/24/18 10:00 09/24/18 10:33 Zestril PO 10 mg DAILY GREG Administration Magnesium Hydroxide 30 ml 09/23/18 22:18 Milk Of Magnesia PO Q4H PRN Constipation Metoprolol Succinate 25 mg 09/24/18 22:30 09/24/18 22:27 Toprol Xl PO 25 mg DAILY GREG Administration Ondansetron HCl 4 mg 09/23/18 22:18 Zofran IV Q8H PRN Nausea And Vomiting Sodium Chloride 10 ml 09/24/18 10:00 09/24/18 22:06 Sodium Chloride Flush Syringe 10 Ml IV 10 ml BID GREG Administration Sodium Chloride 10 ml 09/23/18 22:18 Sodium Chloride Flush Syringe 10 Ml IV PRN PRN LINE FLUSH
[2018-09-25] MEDS: SODIUM CHLORIDE FLUSH SYRINGE 10 ML IV SCH ×2 (10:00→21:46)
[2018-09-25] MEDS: ZESTRIL PO SCH (11:30)
[2018-09-25] MEDS: TOPROL XL PO SCH (11:35)
[2018-09-25] MEDS: LASIX IV SCH ×2 (11:40→21:46)
[2018-09-25] MEDS: MUCINEX ER PO SCH ×2 (11:58→21:46)
[2018-09-25] MEDS: COLACE PO SCH ×2 (11:58→21:46)
--- NOTE | 2018-09-25 13:10 | Progress Note ---
Addendum entered and electronically signed by MARY GUERRIER MD 09/25/18 13:56: Continue medical therapy for chronic systolic heart failure and atrial fibrillat ion rate control. Anticoagulation is on hold due to the finding of possible renal hemorrhagic cyst. Original Note: Assessment and Plan Acute systolic heart failure Chronic kidney disease abdomen CT reports evidence of right kidney mass versus hemorrhagic cyst Hypertension Diabetes Cardiomyopathy, ischemic MPI 09/2017 - Fixed apical defect, no ischemia Echo 09/2017 - EF 20-25% with RWMA NSVT on tele- no further events Permanent atrial fibrillation on Xarelto as an outpatient, currently on hold due to possible hemorrhagic renal cyst on CT abdomen Small vessel CAD Conservative cardiac management Subjective Date of service: 09/25/18 Interval history: Patient reports her breathing is better. Physical therapy is at the bedside. Objective Vital Signs Temp Pulse Resp BP BP Pulse Ox 09/25/18 11:41 93 09/25/18 11:19 97.4 F L 103 H 18 130/71 91 09/25/18 07:15 97.5 F L 102 H 18 149/72 92 09/25/18 04:04 98.0 F 125 H 18 142/78 90 09/24/18 23:55 98.0 F 131 H 18 147/76 91 09/24/18 22:27 109 H 140/75 09/24/18 19:45 98.0 F 100 H 20 140/75 94 09/24/18 16:00 98.3 F 89 130/81 - Physical Examination General: No Apparent Distress HEENT: Positive: PERRL Neck: Positive: trachea midline Cardiac: Positive: irregularly irregular Lungs: Positive: Decreased Breath Sounds Neuro: Positive: Grossly Intact, Weakness Extremities: Absent: edema - Labs and Meds Comprehensive Metabolic Panel 09/25/18 Range/Units 04:58 Sodium 140 (137-145) mmol/L Potassium 4.0 (3.6-5.0) mmol/L Chloride 93.5 L (98-107) mmol/L Carbon Dioxide 29 (22-30) mmol/L BUN 52 H (7-17) mg/dL Creatinine 2.8 H (0.7-1.2) mg/dL Glucose 111 H (65-100) mg/dL Calcium 9.8 (8.4-10.2) mg/dL
--- NOTE | 2018-09-25 16:53 | Progress Note ---
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 CAD, stable -Resume home meds Chronic kidney disease stage IV -Creatinine level is about baseline -Nephrology consulted in the ED and recommend to diurese as long as C creatinine is below 2 DM1 -Controlled -On Lantus and SSI History of atrial fibrillation - continue carvedilol HTN -Stable, resume home meds Anemia of chronic disease -H&H stable -Given epogen by nephrology Disposition: per clinical course History Interval history: Patient was seen and evaluated this morning, patient's SOB is getting better. Hospitalist Physical - Physical exam Narrative exam: Not in cardiopulmonary distress. The patient appeared well nourished and normally developed. Vital signs as documented. Head exam is unremarkable. No scleral icterus . Neck is without jugular venous distension, thyromegaly, or carotid bruits. Lungs are clear to auscultation. Cardiac exam reveals regular rate and Rhythm. First and second heart sounds normal. No murmurs, rubs or gallops. Abdominal exam reveals normal bowel sounds, no masses, no organomegaly and no aortic enlargement. Extremities are nonedematous and both femoral and pedal pulses are normal. 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 No focal weakness. - Constitutional Vitals: Temp Pulse Resp BP Pulse Ox 97.4 F L 103 H 18 130/71 93 09/25/18 11:19 09/25/18 11:19 09/25/18 11:19 09/25/18 11:19 09/25/18 11:41 General appearance: Present: no acute distress Results - Labs CBC & Chem 7: 09/23/18 18:42 09/25/18 04:58 Labs: Laboratory Last Values WBC 8.1 K/mm3 (4.5-11.0) 09/23/18 18:42 RBC 2.93 M/mm3 (3.65-5.03) L 09/23/18 18:42 Hgb 9.2 gm/dl (10.1-14.3) L 09/23/18 18:42 Hct 28.4 % (30.3-42.9) L 09/23/18 18:42 MCV 97 fl (79-97) 09/23/18 18:42 MCH 31 pg (28-32) 09/23/18 18:42 MCHC 32 % (30-34) 09/23/18 18:42 RDW 14.8 % (13.2-15.2) 09/23/18 18:42 Plt Count 405 K/mm3 (140-440) 09/23/18 18:42 Lymph % (Auto) 10.5 % (13.4-35.0) L 09/23/18 18:42 [place] % (Auto) 7.5 % (0.0-7.3) H 09/23/18 18:42 Eos % (Auto) 3.1 % (0.0-4.3) 09/23/18 18:42 Baso % (Auto) 0.9 % (0.0-1.8) 09/23/18 18:42 Lymph # 0.9 K/mm3 (1.2-5.4) L 09/23/18 18:42 [place] # 0.6 K/mm3 (0.0-0.8) 09/23/18 18:42 Eos # 0.3 K/mm3 (0.0-0.4) 09/23/18 18:42 Baso # 0.1 K/mm3 (0.0-0.1) 09/23/18 18:42 Seg Neutrophils % 78.0 % (40.0-70.0) H 09/23/18 18:42 Seg Neutrophils # 6.4 K/mm3 (1.8-7.7) 09/23/18 18:42 PT 37.2 Sec. (12.2-14.9) H 09/24/18 05:21 INR 3.45 (0.87-1.13) H 09/24/18 05:21 APTT 50.7 Sec. (24.2-36.6) H 09/23/18 20:06 Sodium 140 mmol/L (137-145) 09/25/18 04:58 Potassium 4.0 mmol/L (3.6-5.0) 09/25/18 04:58 Chloride 93.5 mmol/L (98-107) L 09/25/18 04:58 Carbon Dioxide 29 mmol/L (22-30) 09/25/18 04:58 Anion Gap 22 mmol/L 09/25/18 04:58 BUN 52 mg/dL (7-17) H 09/25/18 04:58 Creatinine 2.8 mg/dL (0.7-1.2) H 09/25/18 04:58 Estimated GFR 16 ml/min 09/25/18 04:58 BUN/Creatinine Ratio 19 % 09/25/18 04:58 Glucose 111 mg/dL (65-100) H 09/25/18 04:58 POC Glucose 99 (70-105) 09/25/18 06:33 Lactic Acid 0.80 mmol/L (0.7-2.0) 09/23/18 18:42 Calcium 9.8 mg/dL (8.4-10.2) 09/25/18 04:58 Magnesium 1.70 mg/dL (1.7-2.3) 09/24/18 05:21 Total Bilirubin 0.60 mg/dL (0.1-1.2) 09/23/18 18:42 AST 16 units/L (5-40) 09/23/18 18:42 ALT 8 units/L (7-56) 09/23/18 18:42 Alkaline Phosphatase 69 units/L (35-129) 09/23/18 18:42 Troponin T < 0.010 ng/mL (0.00-0.029) 09/24/18 05:21 NT-Pro-B Natriuret Pep 9661 pg/mL (0-900) H 09/23/18 18:42 Total Protein 7.0 g/dL (6.3-8.2) 09/23/18 18:42 Albumin 3.6 g/dL (3.9-5) L 09/23/18 18:42 Albumin/Globulin Ratio 1.1 % 09/23/18 18:42 TSH 1.400 mlU/mL (0.270-4.200) 09/23/18 18:42 Urine Color Yellow (Yellow) 09/23/18 20:06 Urine Turbidity Clear (Clear) 09/23/18 20:06 Urine pH 7.0 (5.0-7.0) 09/23/18 20:06 Ur Specific [place] 1.012 (1.003-1.030) 09/23/18 20:06 Urine Protein 100 mg/dl mg/dL (Negative) 09/23/18 20:06 Urine Glucose (UA) Neg mg/dL (Negative) 09/23/18 20:06 Urine Ketones Neg mg/dL (Negative) 09/23/18 20:06 Urine Blood Neg (Negative) 09/23/18 20:06 Urine Nitrite Neg (Negative) 09/23/18 20:06 Urine Bilirubin Neg (Negative) 09/23/18 20:06 Urine Urobilinogen 2.0 mg/dL (<2.0) 09/23/18 20:06 Ur Leukocyte Esterase Neg (Negative) 09/23/18 20:06 Urine WBC (Auto) < 1.0 /HPF (0.0-6.0) 09/23/18 20:06 Urine RBC (Auto) < 1.0 /HPF (0.0-6.0) 09/23/18 20:06 U Epithel Cells (Auto) < 1.0 /HPF (0-13.0) 09/23/18 20:06 Digoxin 0.3 ng/mL (0.9-2.0) L 09/23/18 18:42 Salicylates < 0.3 mg/dL (2.8-20.0) L 09/23/18 18:42 Acetaminophen < 5.0 ug/mL (10.0-30.0) L 09/23/18 18:49
[2018-09-25] MEDS ORDERED: PROCRIT SUB-Q ONE (21:30)
[2018-09-25] MEDS: LANTUS SUB-Q SCH (23:10)
[2018-09-26 06:15] LABS: INR 1.4 (0.87-1.13)
[2018-09-26] MEDS: HumaLOG SUB-Q SCH (08:17)
[2018-09-26 08:41] VITALS: BP 140/74
[2018-09-26] MEDS: TOPROL XL PO SCH (09:40)
[2018-09-26] MEDS: MUCINEX ER PO SCH (09:40)
[2018-09-26] MEDS: COLACE PO SCH (09:40)
[2018-09-26] MEDS: SODIUM CHLORIDE FLUSH SYRINGE 10 ML IV SCH (09:41)
[2018-09-26] MEDS: LASIX IV SCH (09:41)
--- NOTE | 2018-09-26 09:41 | Progress Note ---
Addendum entered and electronically signed by ZORAIDA GROSSMAN MD 09/26/18 09:43: Feeling better No cardiac events overnight Resumption of anticoagulation is dependent on renal status. Need nephrology input regarding ? hemorrhagic renal cyst and risks of resuming xarelto Original Note: Assessment and Plan Acute systolic heart failure Chronic kidney disease abdomen CT reports evidence of right kidney mass versus hemorrhagic cyst Hypertension Diabetes Cardiomyopathy, ischemic MPI 09/2017 - Fixed apical defect, no ischemia Echo 09/2017 - EF 20-25% with RWMA NSVT on tele- no further events Permanent atrial fibrillation on Xarelto as an outpatient, currently on hold due to possible hemorrhagic renal cyst on CT abdomen Small vessel CAD Recommendations: Resume oral anticoagulation therapy with Xarelto when ok with Nephrology. Continue medical management for permanent afib and ischemic cardiomyopathy. Otherwise, conservative cardiac management Subjective Date of service: 09/26/18 Interval history: Patient reports her breathing is better. Family member is at the bedside. Objective Vital Signs Temp Pulse Pulse Resp BP Pulse Ox 09/26/18 08:40 124 H 20 140/74 98 09/26/18 08:39 97.6 F 09/26/18 05:14 155/96 09/26/18 04:43 116 H 09/26/18 00:44 97.8 F 131 H 17 128/67 95 09/25/18 22:05 110 H 18 98 09/25/18 20:37 98.0 F 125 H 18 150/93 98 09/25/18 20:10 98 09/25/18 16:22 98.3 F 91 H 18 139/76 92 09/25/18 16:19 97.4 F L 108 H 20 136/77 93 09/25/18 11:41 93 09/25/18 11:19 97.4 F L 103 H 18 130/71 91 - Physical Examination General: No Apparent Distress HEENT: Positive: PERRL Neck: Positive: trachea midline Cardiac: Positive: Reg Rate and Rhythm Lungs: Positive: Decreased Breath Sounds Neuro: Positive: Grossly Intact, Weakness Extremities: Absent: edema - Labs and Meds Coagulation 09/26/18 Range/Units 05:20 PT 18.1 H (12.2-14.9) Sec. INR 1.40 H (0.87-1.13) Comprehensive Metabolic Panel 09/26/18 Range/Units 05:20 Sodium 139 (137-145) mmol/L Potassium 3.7 (3.6-5.0) mmol/L Chloride 94.9 L (98-107) mmol/L Carbon Dioxide 28 (22-30) mmol/L BUN 57 H (7-17) mg/dL Creatinine 3.0 H (0.7-1.2) mg/dL Glucose 61 L (65-100) mg/dL Calcium 9.0 (8.4-10.2) mg/dL
--- NOTE | 2018-09-26 10:37 | Discharge Summary ---
Providers - Providers Date of Admission: 09/23/18 22:19 Attending physician: BETY BRAUN MD 09/23/18 20:02 Consult to Physician [CONS] Urgent Comment: Dr. Heart spoke with Dr. Howard @ 2012 Consulting Provider: ROBERTA BORGES Physician Instructions: Reason For Exam: cardio renal syndrome 09/23/18 22:25 Physical Therapy Evaluation and Treat [CONS] Routine Comment: Reason For Exam: generalized weakness 09/24/18 09:50 Consult to Cardiology [CONS] Urgent Consulting Provider: MARY GUERRIER Reason For Exam: 7 beat runs of V tach; more than once 09/26/18 09:49 Consult to Physician [CONS] Routine Comment: to assess if it is safe to resume xarelto Consulting Provider: KRAIG OWUSU Physician Instructions: Reason For Exam: small hemorrhagic cyst Primary care physician: GLOVE CUTTER Hospitalization Reason for admission: CHF exacerbation, CKD Condition: Fair Pertinent studies: Echo; EF 20-25% CXR IMPRESSION: Evidence of mild degree bilateral pleural effusions Mild cardiomegaly with prominent interstitial markings most likely represent CHF. Hospital course: Patient is a 83-year-old female with history of CHF who was told to the ED by her primary care physician because of shortness of breath on mild exertion and low oxygen saturation. History was obtained from both the patient and the was at the bedside. The stated that she has been having generalized weakness and that she fell about 2 weeks ago. She has positive history of dry cough, leg swelling, intermittent chest pain and lightheadedness. She denies diaphoresis, palpitation, fever, chills, orthopnea or PND. No headaches, nausea, vomiting, sore throat, runny nose or congestion, syncope or loss of consciousness. No abdominal pain, constipation, diarrhea, bleeding from any orifice, dysuria or frequency. Patient was admitted to the floor as a management of acute systolic CHF exacerbation and CKD. Patient was managed according to CHF protocol and patient's symptoms of shortness of breath and weakness subsided. Her kidney function was stable, nephrology consulted and agreed with the diuresis. Patient was hemodynamically stable at the time of discharge. Patient's medications were not updated but patient was taking metolazone, metoprolol and Xarelto in addition to the medications listed in the chart. Discuss with cardiology and cleared for discharge with the increase of metoprolol to 50mg BID for a.fib with RVR. Discussed with urology for small hemorrhagic cyst on CT scan they said ok to continue xarelto. Discuss with Manager Hydraulic and ok with the discharge. Patient discharged home in a stable condition Disposition: TO HOME OR SELFCARE Time spent for discharge: 32 minutes - Discharge Diagnoses (1) Cardiorenal syndrome with renal failure Status: Acute (2) Acute exacerbation of CHF (congestive heart failure) Status: Acute (3) CKD (chronic kidney disease) stage 4, GFR 15-29 ml/min Status: Acute (4) A-fib Status: Chronic Qualifiers: Atrial fibrillation type: chronic Qualified Code(s): I48.2 - Chronic atrial fibrillation Core Measure Documentation - Palliative Care Palliative Care/ Comfort Measures: Not Applicable - Core Measures Any of the following diagnoses?: heart failure, none - Heart Failure Discharge Requirements ANNA/ARB for LVSD if EF <40%: No Reason for no ANNA/ARB: Renal impairment Beta ino at discharge: Yes Exam - Physical Exam Narrative exam: Not in cardiopulmonary distress. The patient appeared well nourished and normally developed. Vital signs as documented. Head exam is unremarkable. No scleral icterus . Neck is without jugular venous distension, thyromegaly, or carotid bruits. Lungs are clear to auscultation. Cardiac exam reveals regular rate and Rhythm. First and second heart sounds normal. No murmurs, rubs or gallops. Abdominal exam reveals normal bowel sounds, no masses, no organomegaly and no aortic enlargement. Extremities are nonedematous and both femoral and pedal pulses are normal. FREELANCE DIGITAL PROJECT MANAGER: Alert and oriented 3. No focal weakness. - Constitutional Vitals: Temp Pulse Resp BP Pulse Ox 97.6 F 124 H 20 140/74 98 09/26/18 08:39 09/26/18 08:40 09/26/18 08:40 09/26/18 08:40 09/26/18 08:40 Plan Activity: no restrictions Weight Bearing Status: Full Weight Bearing Diet: low salt Follow up with: PRIMARY CAREMD [Primary Care Provider] - 3-5 Days JASON POWERS MD [Staff Physician] - 7 Days Prescriptions: Metoprolol [Lopressor TAB] 50 mg PO BID #120 tablet
[2018-09-26] MEDS ORDERED: LOPRESSOR PO SCH (11:00)
== END 2018-09-26 11:51 | disposition home or self-care (01) | DRG 291 ==
LOC: ED 17:56 → 4A 22:19
PROVIDERS: ADMIT Internal Medicine; ATTEND Internal Medicine
DX: I13.0 Hypertensive heart and chronic kidney disease with heart failure and stage 1 through stage 4 chronic kidney disease, or unspecified chronic kidney disease (principal); I50.43 Acute on chronic combined systolic (congestive) and diastolic (congestive) heart failure; J96.11 Chronic respiratory failure with hypoxia; N18.4 Chronic kidney disease, stage 4 (severe); E46 Unspecified protein-calorie malnutrition; I47.2 Ventricular tachycardia; E10.22 Type 1 diabetes mellitus with diabetic chronic kidney disease; W18.30XA Fall on same level, unspecified, initial encounter; I25.5 Ischemic cardiomyopathy; I48.2 Chronic atrial fibrillation; I08.1 Rheumatic disorders of both mitral and tricuspid valves; I27.20 Pulmonary hypertension, unspecified; D63.8 Anemia in other chronic diseases classified elsewhere; I25.10 Atherosclerotic heart disease of native coronary artery without angina pectoris; Z90.49 Acquired absence of other specified parts of digestive tract; Z79.82 Long term (current) use of aspirin; Z79.4 Long term (current) use of insulin; Z99.81 Dependence on supplemental oxygen; Y93.89 Activity, other specified; Y92.098 Other place in other non-institutional residence as the place of occurrence of the external cause; Y99.8 Other external cause status; Z71.3 Dietary counseling and surveillance; Z68.22 Body mass index [BMI] 22.0-22.9, adult
CPT/HCPCS: 36415; 70450; 71045; 74176; 80048; 80053; 80162; 80320; 81001; 82140; 82962; 83735; 83880; 84443; 84484; 85025; 85610; 85730; 87040; 87086; 93005; 93010; 93306; 94760; G0378; G0480; J0885; J1815; J1940

== ENCOUNTER 2019-03-01 08:35 | Inpatient (IN) | payer MEDICARE, OTHER ==
[2019-03-01] MEDS ORDERED: DUONEB *Not for PRN Use IH ONE (08:56)
--- NOTE | 2019-03-01 09:15 | Emergency Department Report ---
HPI - General Chief Complaint: Weakness Time Seen by Provider: 03/01/19 08:49 - HPI HPI: 83-year-old female presents to the emergency department via EMS from home to be checked out after she had some weakness and difficulty getting up from the bathroom. 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 Apparently the patient felt weak and lowered herself to the ground near or in the bathroom and was unable to get back up. The patient's helped her get back up into the bedroom and then he called 911. She has a past medical history of CHF, atrial fibrillation, CK D, hypertension and chronic respiratory failure on 4 L nasal cannula. Her hand assembler for puller over is Dr. Casey and her stick feeder is Dr. Arora. ED Past Medical Hx - Past Medical History Previous Medical History?: Yes Hx Hypertension: Yes Hx Heart Attack/AMI: Yes Hx Congestive Heart Failure: Yes Hx Diabetes: Yes Hx Kidney Stones: Yes Hx Asthma: No Hx COPD: Yes Additional medical history: Afib - Surgical History Hx Cholecystectomy: Yes Hx Appendectomy: Yes - Social History Smoking Status: Never Smoker - Medications Home Medications: Home Medications Medication Instructions Recorded Confirmed Last Taken Type Isosorbide Mononitrate [Isosorbide 60 mg PO DAILY 12/27/13 09/23/18 06/29/15 History Mononitrate ER] Nefazodone HCl 100 mg PO BID 12/27/13 09/23/18 06/29/15 History Aspirin [Aspirin BABY CHEW TAB] 81 mg PO DAILY 06/30/15 09/23/18 1 Day Ago History ~06/29/15 Budesonide [Pulmicort Respules] 0.5 mg IH Q12HRT #60 nebu 07/09/15 09/23/18 Unknown Rx Ipratropium/Albuterol Sulfate 1 ampul IH TIDRT PRN #60 ampul.neb 07/09/15 09/23/18 Unknown Rx [DUONEB *Not for PRN Use*] traMADol [Ultram 50 MG tab] 50 mg PO Q6HR PRN #14 tablet 02/13/17 09/23/18 Unknown Rx Metoprolol [Lopressor TAB] 50 mg PO BID #120 tablet 09/26/18 Unknown Rx Coreg 6.25 mg PO BID 03/01/19 03/01/19 Unknown History Insulin Degludec [Tresiba 20 units SUB-Q QHS 03/01/19 03/01/19 Unknown History Flextouch U-100] Insulin Glargine [Lantus VIAL] 5 unit SUB-Q QHS 03/01/19 Unknown History Metoprolol 25 mg PO BID 03/01/19 03/01/19 Unknown History Multivit-Min/FA/Lycopen/Lutein 1 1000units PO DAILY 03/01/19 03/01/19 Unknown History [Centrum Silver Tablet] Pravastatin 40 mg PO DAILY 03/01/19 03/01/19 Unknown History Vascepa 1 g PO BID 03/01/19 03/01/19 Unknown History Xarelto 15 mg PO DAILY 03/01/19 03/01/19 Unknown History amLODIPine [Norvasc] 5 mg PO QDAY 03/01/19 Unknown History ED Review of Systems ROS: Stated complaint: WEAKNESS/SICK Other details as noted in HPI Constitutional: weakness. denies: fever Eyes: denies: eye pain, vision change ENT: denies: ear pain, throat pain Respiratory: denies: cough, shortness of breath Cardiovascular: denies: chest pain, palpitations Gastrointestinal: denies: abdominal pain, vomiting Genitourinary: denies: dysuria, discharge Musculoskeletal: denies: back pain, arthralgia Skin: denies: rash, lesions Neurological: weakness. denies: headache Physical Exam - Physical Exam Vital Signs: Vital Signs 03/01/19 08:47 Temperature 97.5 F L Pulse Rate 95 H Respiratory 22 Rate Blood Pressure 114/48 [Right] O2 Sat by Pulse 86 Oximetry Physical Exam: GENERAL: The patient is well-developed well-nourished. HENT: Normocephalic. Atraumatic. Patient has moist mucous membranes. EYES: Extraocular motions are intact. Pupils equal reactive to light bilaterally. NECK: Supple. Trachea is midline. CHEST/LUNGS: There is some wheezing throughout the chest. Mild tachypnea but no accessory muscle use. There is no respiratory distress noted. HEART/CARDIOVASCULAR: Irregular. There is no tachycardia. There is no murmur. ABDOMEN: Abdomen is soft, nontender. Patient has normal bowel sounds. There is no abdominal distention. SKIN: Skin is warm and dry. NEURO: The patient is awake, alert, and cooperative. The patient has no focal neurologic deficits. The patient has normal speech. MUSCULOSKELETAL: There is no tenderness or deformity. There is no evidence of acute injury. RECTAL: Patient has nonthrombosed hemorrhoids to the external rectum. No gross bleeding seen. Stool is positive on guaiac testing. ED Course Vital Signs 03/01/19 08:47 Temperature 97.5 F L Pulse Rate 95 H Respiratory 22 Rate Blood Pressure 114/48 [Right] O2 Sat by Pulse 86 Oximetry ED Medical Decision Making - Lab Data Result diagrams: 03/01/19 09:00 03/01/19 09:00 - EKG Data -: EKG Interpreted by Co - EKG Data Interpretation: unchanged when compared t (09/24/18), other (atrial fibrillation, left axis deviation, Q waves to the septal leads) - Radiology Data Radiology results: report reviewed CT head without contrast Clinical history: Weakness FINDINGS: This mild cerebral white matter disease most consistent with m icrovascular angiopathy at. The findings are compared to correlate with the previous CT of 09/23/2018. There is continued moderate cerebral and cerebellar atrophy with associated mild prominence of the ventricular system which is unchanged at. There is no CT evidence of acute intracranial hemorrhage or significant mass effect. There is mild mucosal thickening along the inferior maxillary and right sphenoid sinuses at. There appear to be a smaller foci of air within the superficial temporal soft tissues bilaterally which is of unclear etiology and may be vascular in origin related to IV access. No definitive intracranial foci of air are appreciated at. All CT scans at this location are performed using the CT dose reduction for ALARA by means of automated exposure control. IMPRESSION: There is continued mild microvascular angiopathy and moderate cerebral atrophy without CT ends of acute intracranial process. There are small foci of air projected along the superficial temporal soft tissues which are of unclear etiology as described. CHEST 1 VIEW 03/01/2019 9:01 AM INDICATION / CLINICAL INFORMATION: cough. COMPARISON: Chest x-ray 09/23/2018 FINDINGS: SUPPORT DEVICES: None. HEART / MEDIASTINUM: Cardiac silhouette is enlarged for AP technique. LUNGS / PLEURA: Increased interstitial markings are again noted suggestive more for interstitial fibrosis rather than pulmonary edema. No pneumothorax. ADDITIONAL FINDINGS: No significant additional findings. IMPRESSION: 1. Cardiomegaly with probable chronic interstitial fibrosis - Medical Decision Making This patient presents to the emergency department with some generalized weakness. On examination she does not appear to have any focal deficits and her cranial nerves are intact. A CT scan of the head without contrast was done that does not show any bleed, shift, mass, ischemia or any other acute process. Patient is pale. She has some mild bronchospasm on examination. She was given a dose of Decadron and a breathing treatment. Her labs show a hemoglobin of 6.6. This is about 3 g decreased from her last visit here in August. The patient denies any known bleeding. However she had stool positive on guaiac testing during a rectal examination. She will receive 2 units of packed red blood cells for transfusion. The patient also has transaminitis and acute on chronic renal failure. Patient will be admitted to the hospital for further willi luation and treatment and was accepted for admission by the hospitalist, Dr. Summers. - Differential Diagnosis GI bleed, anemia of chronic kidney disease, symptomatic anemia, malignancy Critical Care Time: Yes Critical care time in (mins) excluding proc time.: 35 Critical care attestation.: If time is entered above; I have spent that time in minutes in the direct care of this critically ill patient, excluding procedure time. Critical care time was spent on this patient and doing her initial evaluation, multiple re- evaluations, ordering an interpretation of labs and imaging, ordering of blood f or transfusion. Critical Care Time: 35 minutes ED Disposition Clinical Impression: Generalized weakness, Rectal bleeding, Symptomatic anemia Acute on chronic renal failure Qualifiers: Acute renal failure type: unspecified Chronic kidney disease stage: unspecified stage Qualified Code(s): N17.9 - Acute kidney failure, unspecified Anemia Qualifiers: Anemia type: unspecified type Qualified Code(s): D64.9 - Anemia, unspecified Disposition: DC-09 OP ADMIT IP TO THIS HOSP Is pt being admited?: Yes Condition: Serious Time of Disposition: 11:43
[2019-03-01 09:25] LABS: Basophils % (Auto) 0.4 % (0.0-1.8); Eosinophils % (Auto) 0.1 % (0.0-4.3); Hematocrit 20.1 % (30.3-42.9); Hemoglobin 6.6 gm/dl (10.1-14.3); Lymphocytes # (Auto) 0.9 K/mm3 (1.2-5.4); Lymphocytes % (Auto) 9.5 % (13.4-35.0); Mean Corpuscular HGB Conc 33 % (30-34); Mean Corpuscular Volume 96 fl (79-97); Monocytes # (Auto) 0.8 K/mm3 (0.0-0.8); Monocytes % (Auto) 8.7 % (0.0-7.3); Platelet Count 355 K/mm3 (140-440); Red Blood Count 2.09 M/mm3 (3.65-5.03); Red Cell Distribution Width 17.2 % (13.2-15.2)
[2019-03-01 09:47] LABS: Albumin 3.7 g/dL (3.9-5); Calcium 8.9 mg/dL (8.4-10.2)
[2019-03-01] MEDS ORDERED: NACL 0.9% 500 ML 500 ML IV ONE (09:52)
[2019-03-01 10:05] LABS: Bilirubin,Urine NEG (Negative); Blood,Urine NEG (Negative); Color,Urine Yellow (Yellow); Mucus,Urine FEW /HPF; RBC,Urine < 1.0 /HPF (0.0-6.0); Urobilinogen,Urine < 2.0 mg/dL (<2.0)
--- NOTE | 2019-03-01 10:35 | XRay Report ---
CHEST 1 VIEW 03/01/2019 9:01 AM INDICATION / CLINICAL INFORMATION: cough. COMPARISON: Chest x-ray 09/23/2018 FINDINGS: SUPPORT DEVICES: None. HEART / MEDIASTINUM: Cardiac silhouette is enlarged for AP technique. LUNGS / PLEURA: Increased interstitial markings are again noted suggestive more for interstitial fibr osis rather than pulmonary edema. No pneumothorax. ADDITIONAL FINDINGS: No significant additional findings. IMPRESSION: 1. Cardiomegaly with probable chronic interstitial fibrosis Signer Name: Luiz Ruffin MD Signed: 03/01/2019 10:31 AM Workstation Name: [id number]
--- NOTE | 2019-03-01 11:11 | Cat Scan Report ---
CT head without contrast Clinical history: Weakness FINDINGS: This mild cerebral white matter disease most consistent with microvascular angiopathy at. T he findings are compared to correlate with the previous CT of 09/23/2018. There is continued moderate cerebral and cerebellar atrophy with associated mild prominence of the ventricular system which is un changed at. There is no CT evidence of acute intracranial hemorrhage or significant mass effect. There is mild mucosal thickening along the inferior maxillary and right sphenoid sinuses at. There ap pear to be a smaller foci of air within the superficial temporal soft tissues bilaterally which is of unclear etiology and may be vascular in origin related to IV access. No definitive intracranial foci of air are appreciated at. All CT scans at this location are performed using the CT dose reduction f or ALARA by means of automated exposure control. IMPRESSION: There is continued mild microvascular angiopathy and moderate cerebral atrophy without CT ends of acu te intracranial process. There are small foci of air projected along the superficial temporal soft tissues which are of unclea r etiology as described. Signer Name: Gen Lindsey MD Signed: 03/01/2019 11:07 AM Workstation Name: [id number]
[2019-03-01 11:50] LABS: INR 4.3 (0.87-1.13)
[2019-03-01 11:51] LABS: Partial Thromboplastin Time 37.5 Sec. (24.2-36.6)
[2019-03-01] MEDS ORDERED: NACL 0.9% 500 ML 500 ML ONE (13:48)
--- NOTE | 2019-03-01 15:37 | Gastroenterology Consultation ---
History of Present Illness - Reason for Consult Consult date: 03/01/19 Melena Requesting physician: JASON POWERS - History of Present Illness The patient is an 83 yo female brought to the ER for weakness. In the ER she was noted to be very anemic. She says in the last 1-2 weeks her stools have been "dark" but there is no hematemesis. She denies epigastric pain, or anorexia/vomiting. She does take OTC meds (?NSAIDs) for arthritis, but does not know the name. She also takes chronic blood thinners for atrial fibrillation. She has no family hx of gastric or colon cancer, and the patient denies prior endoscopy. She says her chronic lung disease is "about the same" and she is on O2 at 4L/min. Past History Past Medical History: atrial fib, CAD, COPD, heart failure Past Surgical History: appendectomy Social history: lives with family. denies: smoking, alcohol abuse Family history: no significant family history. denies: cancer Medications and Allergies Allergies Allergy/AdvReac Type Severity Reaction Status Date / Time No Known Allergies Allergy Verified 09/23/18 18:01 Home Medications Medication Instructions Recorded Confirmed Last Taken Type Isosorbide Mononitrate [Isosorbide 60 mg PO DAILY 12/27/13 03/01/19 06/29/15 History Mononitrate ER] Nefazodone HCl 100 mg PO BID 12/27/13 03/01/19 06/29/15 History Aspirin [Aspirin BABY CHEW TAB] 81 mg PO DAILY 06/30/15 03/01/19 1 Day Ago History ~06/29/15 Budesonide [Pulmicort Respules] 0.5 mg IH Q12HRT #60 nebu 07/09/15 03/01/19 Unknown Rx Ipratropium/Albuterol Sulfate 1 ampul IH TIDRT PRN #60 ampul.neb 07/09/15 03/01/19 Unknown Rx [DUONEB *Not for PRN Use*] traMADol [Ultram 50 MG tab] 50 mg PO Q6HR PRN #14 tablet 02/13/17 03/01/19 Unknown Rx Metoprolol [Lopressor TAB] 50 mg PO BID #120 tablet 09/26/18 03/01/19 Unknown Rx Coreg 6.25 mg PO BID 03/01/19 03/01/19 Unknown History Insulin Degludec [Tresiba 20 units SUB-Q QHS 03/01/19 03/01/19 Unknown History Flextouch U-100] Insulin Glargine [Lantus VIAL] 5 unit SUB-Q QHS 03/01/19 03/01/19 Unknown Hist ory Metoprolol 25 mg PO BID 03/01/19 03/01/19 Unknown History Multivit-Min/FA/Lycopen/Lutein 1 1000units PO DAILY 03/01/19 03/01/19 Unknown History [Centrum Silver Tablet] Pravastatin 40 mg PO DAILY 03/01/19 03/01/19 Unknown History Vascepa 1 g PO BID 03/01/19 03/01/19 Unknown History Xarelto 15 mg PO DAILY 03/01/19 03/01/19 Unknown History amLODIPine [Norvasc] 5 mg PO QDAY 03/01/19 03/01/19 Unknown History Active Meds: Active Medications Pantoprazole Sodium (Protonix) 40 mg IV BID GREG I HAVE REVIEWED AND RECONCILED MEDICATIONS Review of Systems - Review of Systems All systems: negative (as noted in the HPI.) Exam - Constitutional Vital Signs: Temp Pulse Resp BP Pulse Ox 98.5 F 117 H 20 113/67 94 03/01/19 14:15 03/01/19 15:09 03/01/19 15:09 03/01/19 15:09 03/01/19 15:09 General appearance: mild distress ((chronic labored breathing)) - EENT Eyes: PERRL, EOM intact ENT: hearing intact, clear oral mucosa, hearing decreased, no thrush, no ulcerations - Neck Neck: supple, normal ROM - Respiratory Respiratory effort: normal Respiratory: bilateral: diminished, wheezing - Cardiovascular Rhythm: irregularly irregular Heart Sounds: Present: S1 & S2 Extremities: no ischemia - Gastrointestinal General gastrointestinal: Present: soft, non-tender, non-distended - Integumentary Integumentary: Present: clear, warm, dry, pale - Neurologic Neurological: alert and oriented x3 - Labs CBC & Chem 7: 03/01/19 09:00 03/01/19 09:00 Lab Results: Laboratory Results - last 24 hr 03/01/19 03/01/19 03/01/19 09:00 09:00 09:00 WBC 9.5 RBC 2.09 L Hgb 6.6 L Hct 20.1 L MCV 96 MCH 32 MCHC 33 RDW 17.2 H Plt Count 355 Lymph % (Auto) 9.5 L Mclennan % (Auto) 8.7 H Eos % (Auto) 0.1 Baso % (Auto) 0.4 Lymph # 0.9 L Mclennan # 0.8 Eos # 0.0 Baso # 0.0 Seg Neutrophils % 81.3 H Seg Neutrophils # 7.7 PT INR APTT Sodium 138 Potassium 4.3 Chloride 96.0 L Carbon Dioxide 25 Anion Gap 21 BUN 79 H Creatinine 3.8 H Estimated GFR 11 BUN/Creatinine Ratio 21 Glucose 131 H Calcium 8.9 Total Bilirubin 0.40 AST 226 H ALT 197 H Alkaline Phosphatase 59 Troponin T 0.014 Total Protein 6.6 Albumin 3.7 L Albumin/Globulin Ratio 1.3 TSH 2.230 Urine Color Urine Turbidity Urine pH Ur Specific Aylett Urine Protein Urine Glucose (UA) Urine Ketones Urine Blood Urine Nitrite Urine Bilirubin Urine Urobilinogen Ur Leukocyte Esterase Urine WBC (Auto) Urine RBC (Auto) U Epithel Cells (Auto) Urine Mucus Blood Type Antibody Screen Crossmatch 03/01/19 03/01/19 03/01/19 09:26 10:34 10:34 WBC RBC Hgb Hct MCV MCH MCHC RDW Plt Count Lymph % (Auto) Mclennan % (Auto) Eos % (Auto) Baso % (Auto) Lymph # Mclennan # Eos # Baso # Seg Neutrophils % Seg Neutrophils # PT 40.7 H INR 4.30 H APTT 37.5 H Sodium Potassium Chloride Carbon Dioxide Anion Gap BUN Creatinine Estimated GFR BUN/Creatinine Ratio Glucose Calcium Total Bilirubin AST ALT Alkaline Phosphatase Troponin T Total Protein Albumin Albumin/Globulin Ratio TSH Urine Color Yellow Urine Turbidity Clear Urine pH 8.0 H Ur Specific Aylett 1.012 Urine Protein 30 mg/dl Urine Glucose (UA) Neg Urine Ketones Neg Urine Blood Neg Urine Nitrite Neg Urine Bilirubin Neg Urine Urobilinogen < 2.0 Ur Leukocyte Esterase Mod Urine WBC (Auto) 9.0 H Urine RBC (Auto) < 1.0 U Epithel Cells (Auto) 3.0 Urine Mucus Few Blood Type O POSITIVE Antibody Screen Negative Crossmatch See Detail Assessment and Plan - Patient Problems (1) Acute blood loss anemia Current Visit: Yes Status: Acute Plan to address problem: - Chronic anemia, but worse than baseline and recent dark stools. - Given possible hemorrhagic cyst in 08/2018, and new bleeding now, will ask Cards to weigh in on the long-term future use of anticoagulation in this patient. - Will plan EGD tomorrow, but hold colonoscopy given comorbids. - Will ask to bring in home OTC pain meds. - Will start daily protonix and transfuse as needed. (2) CHF (congestive heart failure), NYHA class III Current Visit: Yes Status: Acute Plan to address problem: - Severe with R heart disease, and EF 20-25%. - Will attempt some improvement with gentle blood transfusion. (3) Pulmonary fibrosis Current Visit: Yes Status: Acute (4) CKD (chronic kidney disease) stage 3, GFR 30-59 ml/min Current Visit: Yes Status: Acute
--- NOTE | 2019-03-01 18:12 | History and Physical Report ---
History of Present Illness Date of examination: 03/01/19 Date of admission: 03/01/19 12:51 Chief complaint: Severe weakness since am. Dark stools since am History of present illness: 83-year-old female with past medical history of CHF, atrial fibrillation, CKD, hypertension and chronic respiratory failure on 4 L nasal cannula presents to the emergency department via EMS from home to be checked out after she had some weakness and difficulty getting up from the bathroom. The patient says that she had to go to the bathroom multiple times this evening/ea rly morning. Apparently the patient felt weak and lowered herself to the ground near or in the bathroom and was unable to get back up. The patient's helped her get back up into the bedroom and then he called 911. She also has dark stools for last 24 hours.Taking NSAIDS for Arthritis. Past Medical History Previous Medical History?: Yes Hypertension: Yes Heart Attack/AMI: Yes Congestive Heart Failure: Yes Diabetes: Yes Kidney Stones: Yes COPD: Yes Additional medical history: Afib Surgical History Cholecystectomy: Yes Appendectomy: Yes Social History Smoking Status: Never Smoker Family History Htn Review of Systems ROS: Stated complaint: WEAKNESS/SICK Other details as noted in HPI Constitutional: weakness. denies: fever Eyes: denies: eye pain, vision change ENT: denies: ear pain, throat pain Respiratory: denies: cough, shortness of breath Cardiovascular: denies: chest pain, palpitations Gastrointestinal: denies: abdominal pain, vomiting,Has dark stools. Genitourinary: denies: dysuria, discharge Musculoskeletal: denies: back pain, arthralgia Skin: denies: rash, lesions Neurological: weakness. denies: headache Past History Past Medical History: atrial fib, CAD, COPD, heart failure Past Surgical History: appendectomy Social history: lives with family. denies: smoking, alcohol abuse Family history: no significant family history. denies: cancer Medications and Allergies Allergies Allergy/AdvReac Type Severity Reaction Status Date / Time No Known Allergies Allergy Verified 09/23/18 18:01 Home Medications Medication Instructions Recorded Confirmed Last Taken Type Isosorbide Mononitrate [Isosorbide 60 mg PO DAILY 12/27/13 03/01/19 06/29/15 History Mononitrate ER] Nefazodone HCl 100 mg PO BID 12/27/13 03/01/19 06/29/15 History Aspirin [Aspirin BABY CHEW TAB] 81 mg PO DAILY 06/30/15 03/01/19 1 Day Ago History ~06/29/15 Budesonide [Pulmicort Respules] 0.5 mg IH Q12HRT #60 nebu 07/09/15 03/01/19 Unknown Rx Ipratropium/Albuterol Sulfate 1 ampul IH TIDRT PRN #60 ampul.neb 07/09/15 03/01/19 Unknown Rx [DUONEB *Not for PRN Use*] traMADol [Ultram 50 MG tab] 50 mg PO Q6HR PRN #14 tablet 02/13/17 03/01/19 Unknown Rx Metoprolol [Lopressor TAB] 50 mg PO BID #120 tablet 09/26/18 03/01/19 Unknown Rx Coreg 6.25 mg PO BID 03/01/19 03/01/19 Unknown History Insulin Degludec [Tresiba 20 units SUB-Q QHS 03/01/19 03/01/19 Unknown History Flextouch U-100] Insulin Glargine [Lantus VIAL] 5 unit SUB-Q QHS 03/01/19 03/01/19 Unknown History Metoprolol 25 mg PO BID 03/01/19 03/01/19 Unknown History Multivit-Min/FA/Lycopen/Lutein 1 1000units PO DAILY 03/01/19 03/01/19 Unknown History [Centrum Silver Tablet] Pravastatin 40 mg PO DAILY 03/01/19 03/01/19 Unknown History Vascepa 1 g PO BID 03/01/19 03/01/19 Unknown History Xarelto 15 mg PO DAILY 03/01/19 03/01/19 Unknown History amLODIPine [Norvasc] 5 mg PO QDAY 03/01/19 03/01/19 Unknown History Active Meds: Active Medications Pantoprazole Sodium (Protonix) 40 mg IV BID GREG Exam - Constitutional Vitals: Temp Pulse Resp BP Pulse Ox 98.5 F 109 H 22 129/74 96 03/01/19 14:15 03/01/19 17:31 03/01/19 17:31 03/01/19 17:31 03/01/19 17:31 General appearance: Present: no acute distress, well-nourished - EENT Eyes: Present: PERRL ENT: hearing intact, clear oral mucosa - Neck Neck: Present: supple, normal ROM - Respiratory Respiratory effort: normal Respiratory: bilateral: CTA - Cardiovascular Heart rate: 98 Rhythm: irregularly irregular Heart Sounds: Present: S1 & S2. Absent: rub, click - Extremities Extremities: no ischemia, pulses intact, pulses symmetrical, No edema Peripheral Pulses: within normal limits - Abdominal General gastrointestinal: Present: soft, non-tender, non-distended, normal bowel sounds Female genitourinary: Present: normal - Rectal Rectal Exam: stool dark (OB positive) - Integumentary Integumentary: Present: clear, warm, dry - Musculoskeletal Musculoskeletal: gait normal, strength equal bilaterally - Psychiatric Psychiatric: appropriate mood/affect, intact judgment & insight - Neurologic Neurologic: CNII-XII intact, moves all extremities Results - Labs CBC & Chem 7: 03/02/19 04:44 03/02/19 04:44 Labs: Laboratory Last Values WBC 9.5 K/mm3 (4.5-11.0) 03/01/19 09:00 RBC 2.09 M/mm3 (3.65-5.03) L 03/01/19 09:00 Hgb 6.6 gm/dl (10.1-14.3) L 03/01/19 09:00 Hct 20.1 % (30.3-42.9) L 03/01/19 09:00 MCV 96 fl (79-97) 03/01/19 09:00 MCH 32 pg (28-32) 03/01/19 09:00 MCHC 33 % (30-34) 03/01/19 09:00 RDW 17.2 % (13.2-15.2) H 03/01/19 09:00 Plt Count 355 K/mm3 (140-440) 03/01/19 09:00 Lymph % (Auto) 9.5 % (13.4-35.0) L 03/01/19 09:00 [place] % (Auto) 8.7 % (0.0-7.3) H 03/01/19 09:00 Eos % (Auto) 0.1 % (0.0-4.3) 03/01/19 09:00 Baso % (Auto) 0.4 % (0.0-1.8) 03/01/19 09:00 Lymph # 0.9 K/mm3 (1.2-5.4) L 03/01/19 09:00 [place] # 0.8 K/mm3 (0.0-0.8) 03/01/19 09:00 Eos # 0.0 K/mm3 (0.0-0.4) 03/01/19 09:00 Baso # 0.0 K/mm3 (0.0-0.1) 03/01/19 09:00 Seg Neutrophils % 81.3 % (40.0-70.0) H 03/01/19 09:00 Seg Neutrophils # 7.7 K/mm3 (1.8-7.7) 03/01/19 09:00 PT 40.7 Sec. (12.2-14.9) H 03/01/19 10:34 INR 4.30 (0.87-1.13) H 03/01/19 10:34 APTT 37.5 Sec. (24.2-36.6) H 03/01/19 10:34 Sodium 138 mmol/L (137-145) 03/01/19 09:00 Potassium 4.3 mmol/L (3.6-5.0) 03/01/19 09:00 Chloride 96.0 mmol/L (98-107) L 03/01/19 09:00 Carbon Dioxide 25 mmol/L (22-30) 03/01/19 09:00 21 mmol/L 03/01/19 09:00 BUN 79 mg/dL (7-17) H 03/01/19 09:00 3.8 mg/dL (0.7-1.2) H 03/01/19 09:00 Estimated GFR 11 ml/min 03/01/19 09:00 21 % 03/01/19 09:00 Glucose 131 mg/dL (65-100) H 03/01/19 09:00 Calcium 8.9 mg/dL (8.4-10.2) 03/01/19 09:00 0.40 mg/dL (0.1-1.2) 03/01/19 09:00 AST 226 units/L (5-40) H 03/01/19 09:00 ALT 197 units/L (7-56) H 03/01/19 09:00 59 units/L (35-129) 03/01/19 09:00 0.014 ng/mL (0.00-0.029) 03/01/19 09:00 6.6 g/dL (6.3-8.2) 03/01/19 09:00 3.7 g/dL (3.9-5) L 03/01/19 09:00 1.3 % 03/01/19 09:00 TSH 2.230 mlU/mL (0.270-4.200) 03/01/19 09:00 Yellow (Yellow) 03/01/19 09:26 Clear (Clear) 03/01/19 09:26 8.0 (5.0-7.0) H 03/01/19 09:26 Ur Specific [place] 1.012 (1.003-1.030) 03/01/19 09:26 30 mg/dl mg/dL (Negative) 03/01/19 09:26 Neg mg/dL (Negative) 03/01/19 09:26 Neg mg/dL (Negative) 03/01/19 09:26 Neg (Negative) 03/01/19 09:26 Neg (Negative) 03/01/19 09:26 Neg (Negative) 03/01/19 09:26 < 2.0 mg/dL (<2.0) 03/01/19 09:26 Ur Leukocyte Esterase Mod (Negative) 03/01/19 09:26 9.0 /HPF (0.0-6.0) H 03/01/19 09:26 < 1.0 /HPF (0.0-6.0) 03/01/19 09:26 U Epithel Cells (Auto) 3.0 /HPF (0-13.0) 03/01/19 09:26 Few /HPF 03/01/19 09:26 Blood Type O POSITIVE 03/01/19 10:34 Antibody Screen Negative 03/01/19 10:34 Crossmatch See Detail 03/01/19 10:34 Short CBC 03/01/19 03/02/19 03/02/19 Range/Units 09:00 00:20 04:44 WBC 9.5 9.6 (4.5-11.0) K/mm3 Hgb 6.6 L 9.1 L 9.3 L (10.1-14.3) gm/dl Hct 20.1 L 28.3 L D 28.1 L (30.3-42.9) % Plt Count 355 327 (140-440) K/mm3 BMP 03/01/19 03/02/19 09:00 04:44 Sodium 138 138 Potassium 4.3 3.9 Chloride 96.0 L 100.3 Carbon Dioxide 25 23 BUN 79 H 75 H Creatinine 3.8 H 3.5 H Glucose 131 H 104 H Calcium 8.9 8.6 Cardiac Enzymes 03/01/19 Range/Units 09:00 Troponin T 0.014 (0.00-0.029) ng/mL Liver Function 03/01/19 03/02/19 Range/Units 09:00 04:44 Total Bilirubin 0.40 1.80 H (0.1-1.2) mg/dL AST 226 H 139 H (5-40) units/L ALT 197 H 192 H (7-56) units/L Alkaline Phosphatase 59 64 (35-129) units/L Albumin 3.7 L 3.5 L (3.9-5) g/dL Urine 03/01/19 Range/Units 09:26 Urine Color Yellow (Yellow) Urine pH 8.0 H (5.0-7.0) Ur Specific [place] 1.012 (1.003-1.030) Urine Protein 30 mg/dl (Negative) mg/dL Urine Glucose (UA) Neg (Negative) mg/dL - Imaging and Cardiology EKG: report reviewed (A Fib 98/min) Assessment and Plan Advance Directives: Yes (Full code) VTE prophylaxis?: Chemical Plan of care discussed with patient/family: Yes - Patient Problems (1) GI bleed Current Visit: Yes Status: Acute Qualifiers: GI bleed type/associated pathology: unspecified gastrointestinal hemorrhage type Qualified Code(s): K92.2 - Gastrointestinal hemorrhage, unspecified Plan to address problem: Possible lower GI bleed IV Protonix Transfuse 1 to 2 units of PRBC (2) Acute blood loss anemia Current Visit: Yes Status: Acute Plan to address problem: Transfuse 1 to 2 units of PRBC (3) Acute on chronic renal failure Current Visit: Yes Status: Acute Qualifiers: Acute renal failure type: unspecified Chronic kidney disease stage: unspecified stage Qualified Code(s): N17.9 - Acute kidney failure, unspecified; N18.9 - Chronic kidney disease, unspecified Plan to address problem: Gentle IV hydration Nephrology consulted VIKAS sec to ATN (4) A-fib Current Visit: Yes Status: Chronic Qualifiers: Atrial fibrillation type: chronic Qualified Code(s): I48.2 - Chronic atrial fibrillation Plan to address problem: Hold anticoagulation Cannot bridge to Lovenox ---given status of GI bleed Will restart once GI clears for anticoagulation (5) IDDM (insulin dependent diabetes mellitus) Current Visit: Yes Status: Chronic Plan to address problem: Coverage for now Check A1c (6) Hypertension, benign Current Visit: No Status: Chronic Plan to address problem: Hold oral antihypertensives Initiated on low dose Catapress patch (7) CHF (congestive heart failure) Current Visit: Yes Status: Chronic Qualifiers: Heart failure type: combined systolic and diastolic Plan to address problem: Check BNP Lasix 40 mg IV x 1 dose (8) Malnutrition Current Visit: Yes Status: Chronic Qualifiers: Protein-calorie malnutrition severity: mild Plan to address problem: Dietary supplements added for 03/03/19 (9) UTI (urinary tract infection) Current Visit: Yes Status: Acute Qualifiers: Urinary tract infection type: acute cystitis Plan to address problem: IV Rocephin (10) DVT prophylaxis Current Visit: Yes Status: Acute Plan to address problem: On SCD's and GI prophylaxis
[2019-03-01] MEDS ORDERED: DUONEB *Not for PRN Use IH (20:00)
[2019-03-01] MEDS ORDERED: SODIUM CHLORIDE FLUSH SYRINGE 10 ML IV PRN (20:02)
[2019-03-01] MEDS ORDERED: ZOFRAN IV PRN (20:02)
[2019-03-01] MEDS ORDERED: DILAUDID IV PRN (20:02)
[2019-03-01] MEDS ORDERED: TYLENOL PO PRN (20:02)
[2019-03-01] MEDS ORDERED: NACL 0.9% 1000 ML 1,000 ML IV SCH (21:00)
[2019-03-01] MEDS ORDERED: CATAPRES-TTS PATCH TD SCH (21:00)
[2019-03-01] MEDS: PROTONIX IV SCH (21:11)
[2019-03-01] MEDS: SODIUM CHLORIDE FLUSH SYRINGE 10 ML IV SCH (22:40)
[2019-03-02] MEDS: HumaLOG SUB-Q SCH ×3 (00:41→17:03)
[2019-03-02 00:45] LABS: Hematocrit 28.3 % (30.3-42.9); Hemoglobin 9.1 gm/dl (10.1-14.3)
[2019-03-02 05:19] LABS: Basophils % (Auto) 0.4 % (0.0-1.8); Eosinophils # (Auto) 0.1 K/mm3 (0.0-0.4); Eosinophils % (Auto) 1.3 % (0.0-4.3); Hematocrit 28.1 % (30.3-42.9); Hemoglobin 9.3 gm/dl (10.1-14.3); Lymphocytes % (Auto) 9.9 % (13.4-35.0); Mean Corpuscular HGB Conc 33 % (30-34); Mean Corpuscular Volume 91 fl (79-97); Monocytes % (Auto) 10.4 % (0.0-7.3); Platelet Count 327 K/mm3 (140-440); Red Blood Count 3.09 M/mm3 (3.65-5.03)
[2019-03-02 05:20] LABS: Red Cell Distribution Width 20.7 % (13.2-15.2)
[2019-03-02 05:39] LABS: Albumin 3.5 g/dL (3.9-5); Calcium 8.6 mg/dL (8.4-10.2)
[2019-03-02] MEDS ORDERED: LASIX IV ONE (08:00)
--- NOTE | 2019-03-02 08:55 | Consultation ---
History of Present Illness Consult date: 03/02/19 Consult reason: congestive heart failure History of present illness: Patient is an 83-year old woman who presented with generalized weakness, adm itted with severe anemia. Initial labs revealed a hematocrit of 20.1. She had an INR of 4.3 and noted elevated liver transaminase with an elevated bilirubin. Patient received 2 units of packed red blood cells and awaits GI workup. Patient is known to [facility]. She has a dilated cardiomyopathy and small vessel CAD by cardiac cath in 2004. Her latest cardiac workup was done a year ago where she had a persantine thallium stress test that reports a fixed anterior, septal and apical defect, no ischemia, ejection fraction 25% by echocardiogram. She also has permanent atrial fibrillation and in on xarelto for oral anticoagulation. Co-morbidities includes chronic kidney disease, diabetes, hypertension and hyperlipidemia. Xarelto has since been discontinued. Patient denies chest pain and shortness of breath. Chest x-ray reports cardiomegaly with mild interstitial edema. 12-lead ECG is atrial fibrillation with a well controlled ventricular rate. Past History Past Medical History: atrial fib, CAD, COPD, heart failure Past Surgical History: appendectomy Social history: lives with family. denies: smoking, alcohol abuse Family history: no significant family history. denies: cancer Medications and Allergies Allergies Allergy/AdvReac Type Severity Reaction Status Date / Time No Known Allergies Allergy Verified 09/23/18 18:01 Home Medications Medication Instructions Recorded Confirmed Last Taken Type Isosorbide Mononitrate [Isosorbide 60 mg PO DAILY 12/27/13 03/01/19 06/29/15 History Mononitrate ER] Nefazodone HCl 100 mg PO BID 12/27/13 03/01/19 06/29/15 History Aspirin [Aspirin BABY CHEW TAB] 81 mg PO DAILY 06/30/15 03/01/19 1 Day Ago History ~06/29/15 Budesonide [Pulmicort Respules] 0.5 mg IH Q12HRT #60 nebu 07/09/15 03/01/19 Unknown Rx Ipratropium/Albuterol Sulfate 1 ampul IH TIDRT PRN #60 ampul.neb 07/09/15 03/01/19 Unknown Rx [DUONEB *Not for PRN Use*] traMADol [Ultram 50 MG tab] 50 mg PO Q6HR PRN #14 tablet 07/19/17 08/04/19 Unknown Rx Metoprolol [Lopressor TAB] 50 mg PO BID #120 tablet 09/26/18 03/01/19 Unknown Rx Coreg 6.25 mg PO BID 03/01/19 03/01/19 Unknown History Insulin Degludec [Tresiba 20 units SUB-Q QHS 03/01/19 03/01/19 Unknown History Flextouch U-100] Insulin Glargine [Lantus VIAL] 5 unit SUB-Q QHS 03/01/19 03/01/19 Unknown History Metoprolol 25 mg PO BID 03/01/19 03/01/19 Unknown History Multivit-Min/FA/Lycopen/Lutein 1 1000units PO DAILY 03/01/19 03/01/19 Unknown History [Centrum Silver Tablet] Pravastatin 40 mg PO DAILY 03/01/19 03/01/19 Unknown History Vascepa 1 g PO BID 03/01/19 03/01/19 Unknown History Xarelto 15 mg PO DAILY 03/01/19 03/01/19 Unknown History amLODIPine [Norvasc] 5 mg PO QDAY 03/01/19 03/01/19 Unknown History Active Meds: Active Medications Acetaminophen (Tylenol) 650 mg PO Q4H PRN PRN Reason: Pain MILD(1-3)/Fever >100.5/BRICENO Albuterol/Ipratropium (Duoneb *Not For Prn Use*) 1 ampul IH TIDRT PRN PRN Reason: SOB/wheezing Clonidine HCl (Catapres-Tts Patch) 0.1 mg TD Ramos GREG Last Admin: 03/02/19 00:38 Dose: 0.1 mg Documented by: Hydromorphone HCl (Dilaudid) 0.25 mg IV Q3H PRN PRN Reason: Pain, Moderate (4-6) Ceftriaxone Sodium (Rocephin/Ns 1 Gm/50 Ml) 1 gm in 50 mls @ 100 mls/hr IV Q24HR GREG; Protocol Sodium Chloride (Nacl 0.9% 1000 Ml) 1,000 mls @ 50 mls/hr IV DIRECT GREG Insulin Human Lispro (Humalog) 0 unit SUB-Q Q6HR GREG; Protocol Last Admin: 03/02/19 06:33 Dose: Not Given Documented by: Ondansetron HCl (Zofran) 4 mg IV Q8H PRN PRN Reason: Nausea And Vomiting Pantoprazole Sodium (Protonix) 40 mg IV BID [facility] Last Admin: 03/01/19 21:11 Dose: 40 mg Documented by: Sodium Chloride (Sodium Chloride Flush Syringe 10 Ml) 10 ml IV BID [facility] Last Admin: 03/01/19 22:40 Dose: 10 ml Documented by: Sodium Chloride (Sodium Chloride Flush Syringe 10 Ml) 10 ml IV PRN PRN PRN Reason: LINE FLUSH Physical Examination Vital Signs Temp Pulse Resp BP Pulse Ox 97.5 F L 95 H 22 114/48 86 03/01/19 08:47 03/01/19 08:47 03/01/19 08:47 03/01/19 08:47 03/01/19 08:47 General appearance: no acute distress HEENT: Positive: PERRL Neck: Positive: trachea midline Cardiac: Positive: irregularly irregular Lungs: Positive: Decreased Breath Sounds, Rales Neuro: Positive: Grossly Intact Results 03/02/19 04:44 03/02/19 04:44 Cardiac Enzymes 03/01/19 03/02/19 Range/Units 09:00 04:44 AST 226 H 139 H (5-40) units/L Coagulation 03/01/19 Range/Units 10:34 PT 40.7 H (12.2-14.9) Sec. INR 4.30 H (0.87-1.13) APTT 37.5 H (24.2-36.6) Sec. CBC 03/01/19 03/02/19 03/02/19 Range/Units 09:00 00:20 04:44 WBC 9.5 9.6 (4.5-11.0) K/mm3 RBC 2.09 L 3.09 L (3.65-5.03) M/mm3 Hgb 6.6 L 9.1 L 9.3 L (10.1-14.3) gm/dl Hct 20.1 L 28.3 L D 28.1 L (30.3-42.9) % Plt Count 355 327 (140-440) K/mm3 Lymph # 0.9 L 1.0 L (1.2-5.4) K/mm3 [place] # 0.8 1.0 H (0.0-0.8) K/mm3 Eos # 0.0 0.1 (0.0-0.4) K/mm3 Baso # 0.0 0.0 (0.0-0.1) K/mm3 Comprehensive Metabolic Panel 03/01/19 03/02/19 Range/Units 09:00 04:44 Sodium 138 138 (137-145) mmol/L Potassium 4.3 3.9 (3.6-5.0) mmol/L Chloride 96.0 L 100.3 (98-107) mmol/L Carbon Dioxide 25 23 (22-30) mmol/L BUN 79 H 75 H (7-17) mg/dL Creatinine 3.8 H 3.5 H (0.7-1.2) mg/dL Glucose 131 H 104 H (65-100) mg/dL Calcium 8.9 8.6 (8.4-10.2) mg/dL AST 226 H 139 H (5-40) units/L ALT 197 H 192 H (7-56) units/L Alkaline Phosphatase 59 64 (35-129) units/L Total Protein 6.6 6.4 (6.3-8.2) g/dL Albumin 3.7 L 3.5 L (3.9-5) g/dL Assessment and Plan Severe Anemia s/p transfusion of PRBCs Elevated transaminase Chronic kidney disease Hypertension Diabetes Cardiomyopathy, ischemic MPI 09/2017 - Fixed apical defect, no ischemia Echo 09/2017 - EF 20-25% with RWMA Permanent atrial fibrillation on Xarelto as an outpatient, currently on hold due to severe anemia Small vessel CAD
[2019-03-02] MEDS ORDERED: NACL 0.9% 1000 ML 1,000 ML IV SCH (09:00)
--- NOTE | 2019-03-02 09:05 | Consultation ---
History of Present Illness - History of Present Illness Thank you for the consultation ! Patient was evaluated today, My assessment and plan are as follows; ? Acute on chronic renal failure in a patient who is 83-year-old, not a suit able candidate for dialysis, and this time we will choose to treat her medically, discussed options with patient Is currently established in our clinic and during her last office visit on October 28 Review of the old record shows that in September 2018 her creatinine was 3.0, and there has been progression over time in 2014 her creatinine was running in 2's She is prone to cardiorenal syndrome, currently creatinine may have worsened due to GI bleed Patient has a history of anemia and chronic kidney disease, metabolic acidosis, proteinuria Creatinine was 3.4 and January 2014 Due to severe anemia will give her benefit her as well as Epogen Severe anemia admission hemoglobin was 6.6 platelet count normal 355,000 Hemoccult-positive stool/ patient was taking? NSAIDs she was taking aspirin as well as Xarelto , Severe cardiomyopathy ejection fraction 25% Hypertension: Currently stable Multiple comorbidities including hypertension, acute [place], congestive heart failure, diabetes, kidney stone, COPD, atrial fibrillation Patient was adequately counseled and educated regarding multiple renal related issues. Prognosis remains guarded at this time All renal related questions were answered and simple Occitan pertinent lab studies as well as imaging results were also discussed. We will continue to follow and make recommendations from renal standpoint. Author: Joselito Casey M.D. [facility], [address] [place] [address] Tel; [phone] [employer] Source of information; patient, old records: History of present illness. Patient is 83-year-old female who has been known to our practice she was last seen in our office in October 2018 her creatinine usually is less than 3 This time she has been admitted here with GI bleed, Creatinine has been noted to be markedly elevated patient also does have history of congestive heart failure Past medical history significant for; Advanced chronic kidney disease, stage IV Congestive heart failure Hypertension Myocardial infarction COPD Atrial fibrillation Current allergies: None Home medication: Medication: Reviewed Social history: Reviewed Family history: Reviewed Review of systems: Physical examination Vitals: Reviewed General: No acute distress HEENT: Oral mucosa moist moderate pallor present no icterus Neck: Supple without any JVD thyromegaly or nodular mass Chest: Clear to auscultation anteriorly Heart: Regular rate and rhythm S1-S2 heard no S3-S4 Abdomen: Soft nontender, bowel sounds present no renal bruit no suprapubic masses no CVA tenderness noted Extremity: Minimal edema dry skin no peripheral cyanosis Endocrine: Thyroid not enlarged Psychiatric: No agitation and aggression noted Musculoskeletal: No joint effusion noted Derm, no petechial rash Labs and x-rays: Reviewed from this admission Past History Past Medical History: atrial fib, CAD, COPD, heart failure Past Surgical History: appendectomy Social history: lives with family. denies: smoking, alcohol abuse Family history: no significant family history. denies: cancer Medications and Allergies Allergies Allergy/AdvReac Type Severity Reaction Status Date / Time No Known Allergies Allergy Verified 09/23/18 18:01 Home Medications Medication Instructions Recorded Confirmed Last Taken Type Isosorbide Mononitrate [Isosorbide 60 mg PO DAILY 12/27/13 03/01/19 06/29/15 History Mononitrate ER] Nefazodone HCl 100 mg PO BID 12/27/13 03/01/19 06/29/15 History Aspirin [Aspirin BABY CHEW TAB] 81 mg PO DAILY 06/30/15 03/01/19 1 Day Ago History ~06/29/15 Budesonide [Pulmicort Respules] 0.5 mg IH Q12HRT #60 nebu 07/09/15 03/01/19 Unknown Rx Ipratropium/Albuterol Sulfate 1 ampul IH TIDRT PRN #60 ampul.neb 07/09/15 03/01/19 Unknown Rx [DUONEB *Not for PRN Use*] traMADol [Ultram 50 MG tab] 50 mg PO Q6HR PRN #14 tablet 02/13/17 03/01/19 Unknown Rx Metoprolol [Lopressor TAB] 50 mg PO BID #120 tablet 09/26/18 03/01/19 Unknown Rx Coreg 6.25 mg PO BID 03/01/19 03/01/19 Unknown History Insulin Degludec [Tresiba 20 units SUB-Q QHS 03/01/19 03/01/19 Unknown History Flextouch U-100] Insulin Glargine [Lantus VIAL] 5 unit SUB-Q QHS 03/01/19 03/01/19 Unknown History Metoprolol 25 mg PO BID 03/01/19 03/01/19 Unknown History Multivit-Min/FA/Lycopen/Lutein 1 1000units PO DAILY 03/01/19 03/01/19 Unknown History [Centrum Silver Tablet] Pravastatin 40 mg PO DAILY 03/01/19 03/01/19 Unknown History Vascepa 1 g PO BID 03/01/19 03/01/19 Unknown History Xarelto 15 mg PO DAILY 03/01/19 03/01/19 Unknown History amLODIPine [Norvasc] 5 mg PO QDAY 03/01/19 03/01/19 Unknown History Active Meds: Active Medications Acetaminophen (Tylenol) 650 mg PO Q4H PRN PRN Reason: Pain MILD(1-3)/Fever >100.5/BRICENO Albuterol/Ipratropium (Duoneb *Not For Prn Use*) 1 ampul IH TIDRT PRN PRN Reason: SOB/wheezing Clonidine HCl (Catapres-Tts Patch) 0.1 mg TD Ramos [facility] Last Admin: 03/02/19 00:38 Dose: 0.1 mg Documented by: Hydromorphone HCl (Dilaudid) 0.25 mg IV Q3H PRN PRN Reason: Pain, Moderate (4-6) Ceftriaxone Sodium (Rocephin/Ns 1 Gm/50 Ml) 1 gm in 50 mls @ 100 mls/hr IV Q24HR GREG; Protocol Sodium Chloride (Nacl 0.9% 1000 Ml) 1,000 mls @ 50 mls/hr IV DIRECT GREG Insulin Human Lispro (Humalog) 0 unit SUB-Q Q6HR [facility]; Protocol Last Admin: 03/02/19 06:33 Dose: Not Given Documented by: Ondansetron HCl (Zofran) 4 mg IV Q8H PRN PRN Reason: Nausea And Vomiting Pantoprazole Sodium (Protonix) 40 mg IV BID [facility] Last Admin: 03/01/19 21:11 Dose: 40 mg Documented by: Sodium Chloride (Sodium Chloride Flush Syringe 10 Ml) 10 ml IV BID [facility] Last Admin: 03/01/19 22:40 Dose: 10 ml Documented by: Sodium Chloride (Sodium Chloride Flush Syringe 10 Ml) 10 ml IV PRN PRN PRN Reason: LINE FLUSH Exam - Vital Signs Vital signs: Vital Signs Temp Pulse Resp BP Pulse Ox 97.5 F L 95 H 22 114/48 86 03/01/19 08:47 03/01/19 08:47 03/01/19 08:47 03/01/19 08:47 03/01/19 08:47 Results - Lab Results 03/02/19 04:44 03/02/19 04:44 Most recent lab results Calcium 8.6 mg/dL (8.4-10.2) 03/02/19 04:44
[2019-03-02] MEDS ORDERED: PROCRIT SUB-Q NR (09:19)
[2019-03-02] MEDS: PROTONIX IV SCH ×2 (09:50→21:49)
[2019-03-02 09:56] LABS: Uric Acid 11.8 mg/dL (3.5-7.6)
[2019-03-02] MEDS ORDERED: FERRLECIT 125 MG in NACL 0.9% 100 ML IV ONE (10:00)
[2019-03-02 10:20] LABS: INR 2.07 (0.87-1.13)
--- NOTE | 2019-03-02 10:56 | Gastroenterology Progress Note ---
Assessment and Plan 1.acute blood loss anemia - Chronic anemia, but worse than baseline and recent dark stools. - Given possible hemorrhagic cyst in 08/2018, and new bleeding now, will ask Cards to weigh in on the long-term future use of anticoagulation in this patient. - EGD cancelled for today and rescheduled for tomorrow once INR <2, but hold colonoscopy given comorbids. - continue PPI and transfuse as needed 2.CHF - Severe with R heart disease, and EF 20-25%. - Will attempt some improvement with gentle blood transfusion. 3.pulmonary fibrosis 4.CKD Subjective Date of service: 03/02/19 Principal diagnosis: GI bleed Interval history: No acute signs of bleeding overnight or this am per nursing. Objective - Constitutional Vitals: Temp Pulse Resp BP Pulse Ox 98.2 F 85 20 117/47 94 03/02/19 07:20 03/02/19 07:20 03/02/19 07:20 03/02/19 07:20 03/02/19 07:20 General appearance: no acute distress - Respiratory Respiratory effort: normal - Cardiovascular Rhythm: regular - Gastrointestinal General gastrointestinal: Present: soft, non-distended, normal bowel sounds - Labs CBC & Chem 7: 03/02/19 04:44 03/02/19 04:44 Labs: Laboratory Results - last 24 hr 03/01/19 03/01/19 03/01/19 09:00 10:34 10:34 WBC RBC Hgb Hct MCV MCH MCHC RDW Plt Count Lymph % (Auto) Cooper % (Auto) Eos % (Auto) Baso % (Auto) Lymph # Cooper # Eos # Baso # Seg Neutrophils % Seg Neutrophils # PT 40.7 H INR 4.30 H APTT 37.5 H Sodium Potassium Chloride Carbon Dioxide Anion Gap BUN Creatinine Estimated GFR BUN/Creatinine Ratio Glucose POC Glucose Hemoglobin A1c 5.8 Uric Acid Calcium Total Bilirubin AST ALT Alkaline Phosphatase Total Creatine Kinase NT-Pro-B Natriuret Pep Total Protein Albumin Albumin/Globulin Ratio Blood Type O POSITIVE Antibody Screen Negative Crossmatch See Detail 03/02/19 03/02/19 03/02/19 00:20 00:34 04:44 WBC 9.6 RBC 3.09 L Hgb 9.1 L 9.3 L Hct 28.3 L D 28.1 L MCV 91 MCH 30 MCHC 33 RDW 20.7 H Plt Count 327 Lymph % (Auto) 9.9 L Cooper % (Auto) 10.4 H Eos % (Auto) 1.3 Baso % (Auto) 0.4 Lymph # 1.0 L Cooper # 1.0 H Eos # 0.1 Baso # 0.0 Seg Neutrophils % 78.0 H Seg Neutrophils # 7.5 PT INR APTT Sodium Potassium Chloride Carbon Dioxide Anion Gap BUN Creatinine Estimated GFR BUN/Creatinine Ratio Glucose POC Glucose 136 H Hemoglobin A1c Uric Acid Calcium Total Bilirubin AST ALT Alkaline Phosphatase Total Creatine Kinase NT-Pro-B Natriuret Pep Total Protein Albumin Albumin/Globulin Ratio Blood Type Antibody Screen Crossmatch 03/02/19 03/02/19 03/02/19 04:44 05:58 06:55 WBC RBC Hgb Hct MCV MCH MCHC RDW Plt Count Lymph % (Auto) Cooper % (Auto) Eos % (Auto) Baso % (Auto) Lymph # Cooper # Eos # Baso # Seg Neutrophils % Seg Neutrophils # PT INR APTT Sodium 138 Potassium 3.9 Chloride 100.3 Carbon Dioxide 23 Anion Gap 19 BUN 75 H Creatinine 3.5 H Estimated GFR 12 BUN/Creatinine Ratio 21 Glucose 104 H POC Glucose 111 H Hemoglobin A1c Uric Acid Calcium 8.6 Total Bilirubin 1.80 H AST 139 H ALT 192 H Alkaline Phosphatase 64 Total Creatine Kinase NT-Pro-B Natriuret Pep 06884 H Total Protein 6.4 Albumin 3.5 L Albumin/Globulin Ratio 1.2 Blood Type Antibody Screen Crossmatch 03/02/19 03/02/19 09:16 09:22 WBC RBC Hgb Hct MCV MCH MCHC RDW Plt Count Lymph % (Auto) Cooper % (Auto) Eos % (Auto) Baso % (Auto) Lymph # Cooper # Eos # Baso # Seg Neutrophils % Seg Neutrophils # PT 22.9 H INR 2.07 H APTT Sodium Potassium Chloride Carbon Dioxide Anion Gap BUN Creatinine Estimated GFR BUN/Creatinine Ratio Glucose POC Glucose Hemoglobin A1c Uric Acid 11.8 H Calcium Total Bilirubin AST ALT Alkaline Phosphatase Total Creatine Kinase 80 NT-Pro-B Natriuret Pep Total Protein Albumin Albumin/Globulin Ratio Blood Type Antibody Screen Crossmatch
[2019-03-02] MEDS: ROCEPHIN/NS 1 GM/50 ML 1 GM/50 ML BAG IV SCH (11:04)
[2019-03-02] MEDS: SODIUM CHLORIDE FLUSH SYRINGE 10 ML IV SCH ×2 (11:09→21:50)
--- NOTE | 2019-03-02 11:53 | Progress Note ---
Assessment and Plan Assessment and plan: Acute GI bleed with dark stools Admitted to [facility] GI following For EGD tomorrow Anemia due to acute blood loss. Hemoglobin 9.8 after 2 units PRBC transfusion on 03/01/2019 Hgb was 6.6 on admission Permanent Atrial fibrillation Was on Xarelto, now on hold because of GI bleed Hypertension Monitor BP Chronic systolic CHF Cardiology following No shortness of breath Acute on chronic kidney disease Nephrology following Diabetes mellitus type 2 Fingerstick qac and hs Ischemic cardiomyopathy EF 20-25% CAD Medical management UTI started on Rocephin Full code status Patient is NPO due to GI bleed therefore medications on hold, to be reconciled when she starts a diet History Interval history: Presented with dark stools Hospitalist Physical - Physical exam Narrative exam: Gen: Not in acute distress, lying in bed, HEENT: Normocephalic, atraumatic Neck: supple, no JVD Heart: S1 and S2 reg, no murmurs, rubs or gallop Lungs: Clear, no crackles, no rhonchi Abd: soft, non tender, non distended, normal BS, Ext: No edema, no clubbing, no cyanosis Neuro: Awake,alert, No focal neuro signs Psych: normal mood - Constitutional Vitals: Temp Pulse Resp BP Pulse Ox 98.2 F 85 20 117/47 94 03/02/19 07:20 03/02/19 07:20 03/02/19 07:20 03/02/19 07:20 03/02/19 07:20 Results - Labs CBC & Chem 7: 03/02/19 12:20 03/02/19 04:44 Labs: Laboratory Last Values WBC 9.6 K/mm3 (4.5-11.0) 03/02/19 04:44 RBC 3.09 M/mm3 (3.65-5.03) L 03/02/19 04:44 Hgb 9.3 gm/dl (10.1-14.3) L 03/02/19 04:44 Hct 28.1 % (30.3-42.9) L 03/02/19 04:44 MCV 91 fl (79-97) 03/02/19 04:44 MCH 30 pg (28-32) 03/02/19 04:44 MCHC 33 % (30-34) 03/02/19 04:44 RDW 20.7 % (13.2-15.2) H 03/02/19 04:44 Plt Count 327 K/mm3 (140-440) 03/02/19 04:44 Lymph % (Auto) 9.9 % (13.4-35.0) L 03/02/19 04:44 Haakon % (Auto) 10.4 % (0.0-7.3) H 03/02/19 04:44 Eos % (Auto) 1.3 % (0.0-4.3) 03/02/19 04:44 Baso % (Auto) 0.4 % (0.0-1.8) 03/02/19 04:44 Lymph # 1.0 K/mm3 (1.2-5.4) L 03/02/19 04:44 Haakon # 1.0 K/mm3 (0.0-0.8) H 03/02/19 04:44 Eos # 0.1 K/mm3 (0.0-0.4) 03/02/19 04:44 Baso # 0.0 K/mm3 (0.0-0.1) 03/02/19 04:44 Seg Neutrophils % 78.0 % (40.0-70.0) H 03/02/19 04:44 Seg Neutrophils # 7.5 K/mm3 (1.8-7.7) 03/02/19 04:44 PT 22.9 Sec. (12.2-14.9) H 03/02/19 09:16 INR 2.07 (0.87-1.13) H 03/02/19 09:16 APTT 37.5 Sec. (24.2-36.6) H 03/01/19 10:34 Sodium 138 mmol/L (137-145) 03/02/19 04:44 Potassium 3.9 mmol/L (3.6-5.0) 03/02/19 04:44 Chloride 100.3 mmol/L (98-107) 03/02/19 04:44 Carbon Dioxide 23 mmol/L (22-30) 03/02/19 04:44 19 mmol/L 03/02/19 04:44 BUN 75 mg/dL (7-17) H 03/02/19 04:44 3.5 mg/dL (0.7-1.2) H 03/02/19 04:44 Estimated GFR 12 ml/min 03/02/19 04:44 21 % 03/02/19 04:44 Glucose 104 mg/dL (65-100) H 03/02/19 04:44 POC Glucose 111 (70-105) H 03/02/19 05:58 5.8 % (4-6) 03/01/19 09:00 313 Mosm/kg 03/02/19 09:22 11.8 mg/dL (3.5-7.6) H 03/02/19 09:22 Calcium 8.6 mg/dL (8.4-10.2) 03/02/19 04:44 1.80 mg/dL (0.1-1.2) H 03/02/19 04:44 AST 139 units/L (5-40) H 03/02/19 04:44 ALT 192 units/L (7-56) H 03/02/19 04:44 64 units/L (35-129) 03/02/19 04:44 80 units/L (30-135) 03/02/19 09:22 0.014 ng/mL (0.00-0.029) 03/01/19 09:00 NT-Pro-B Natriuret Pep 23983 pg/mL (0-900) H 03/02/19 06:55 6.4 g/dL (6.3-8.2) 03/02/19 04:44 3.5 g/dL (3.9-5) L 03/02/19 04:44 1.2 % 03/02/19 04:44 TSH 2.230 mlU/mL (0.270-4.200) 03/01/19 09:00 Yellow (Yellow) 03/01/19 09:26 Clear (Clear) 03/01/19 09:26 8.0 (5.0-7.0) H 03/01/19 09:26 Ur Specific Shirley 1.012 (1.003-1.030) 03/01/19 09:26 30 mg/dl mg/dL (Negative) 03/01/19 09:26 Neg mg/dL (Negative) 03/01/19 09:26 Neg mg/dL (Negative) 03/01/19 09:26 Neg (Negative) 03/01/19 09:26 Neg (Negative) 03/01/19 09:26 Neg (Negative) 03/01/19 09:26 < 2.0 mg/dL (<2.0) 03/01/19 09:26 Ur Leukocyte Esterase Mod (Negative) 03/01/19 09:26 9.0 /HPF (0.0-6.0) H 03/01/19 09:26 < 1.0 /HPF (0.0-6.0) 03/01/19 09:26 U Epithel Cells (Auto) 3.0 /HPF (0-13.0) 03/01/19 09:26 Few /HPF 03/01/19 09:26 Blood Type O POSITIVE 03/01/19 10:34 Antibody Screen Negative 03/01/19 10:34 Crossmatch See Detail 03/01/19 10:34 Active Medications - Current Medications Current Medications: Generic Name Dose Route Start Last Admin Trade Name Freq PRN Reason Stop Dose Admin Acetaminophen 650 mg 03/01/19 20:02 Tylenol PO Q4H PRN Pain MILD(1-3)/Fever >100.5/BRICENO Albuterol/Ipratropium 1 ampul 03/01/19 20:00 Duoneb *Not For Prn Use* IH TIDRT PRN SOB/wheezing Clonidine HCl 0.1 mg 03/01/19 21:00 03/02/19 00:38 Catapres-Tts Patch TD 0.1 mg Ramos GREG Administration Epoetin Man 20,000 unit 03/02/19 09:19 03/02/19 11:05 Procrit SUB-Q 03/02/19 16:00 20,000 unit ONCE NR Administration Hydromorphone HCl 0.25 mg 03/01/19 20:02 Dilaudid IV Q3H PRN Pain, Moderate (4-6) Ceftriaxone Sodium 1 gm in 50 mls @ 100 mls/hr 03/02/19 10:00 03/02/19 11:04 Rocephin/Ns 1 Gm/50 Ml IV 100 mls/hr Q24HR GREG Administration Protocol Sodium Chloride 1,000 mls @ 50 mls/hr 03/02/19 09:00 Nacl 0.9% 1000 Ml IV DIRECT GREG Insulin Human Lispro 0 unit 03/02/19 00:00 03/02/19 06:33 Humalog SUB-Q Not Given Q6HR [facility] Protocol Ondansetron HCl 4 mg 03/01/19 20:02 Zofran IV Q8H PRN Nausea And Vomiting Pantoprazole Sodium 40 mg 03/01/19 22:00 03/02/19 09:50 Protonix IV 40 mg BID GREG Administration Sodium Chloride 10 ml 03/01/19 22:00 03/02/19 11:09 Sodium Chloride Flush Syringe 10 Ml IV 10 ml BID GREG Administration Sodium Chloride 10 ml 03/01/19 20:02 Sodium Chloride Flush Syringe 10 Ml IV PRN PRN LINE FLUSH
[2019-03-02 12:46] LABS: Hematocrit 26.8 % (30.3-42.9); Hemoglobin 8.8 gm/dl (10.1-14.3)
[2019-03-02] MEDS: LOPRESSOR IV SCH (18:44)
[2019-03-03] MEDS: LOPRESSOR IV SCH ×3 (01:50→16:26)
[2019-03-03] MEDS: HumaLOG SUB-Q SCH ×5 (01:50→22:04)
--- NOTE | 2019-03-03 08:58 | Progress Note ---
Subjective Principal diagnosis: GI bleed Interval history: Patient was seen today for follow-up on multiple renal related issues Patient denies any complaints of chest pain shortness of breath nausea vomiting Creatinine is relatively better Events over 24 hours were noted Vitals intake output medications were reviewed Allergies: Reviewed Social/family history: Reviewed Physical examination: Gen.: No acute distress HEENT: Oral mucosa moist, no icterus Neck: Supple no thyromegaly maass or JVD Chest: Clear to auscultation Heart: Regular rate and rhythm S1-S2 heard no S3-S4 Abdomen: Soft nontender no suprapubic masses nor organomegaly Extremity: Dry skin less than 1+ edema,No petechial rashes Psych: No evidence of any agitation and aggression noted Neurological: Alert awake Assessment and plan Acute kidney injury: Renal function appears to be relatively stable creatinine is 3.5 Hyperuricemia likely due to intravascular volume depletion continue to monitor and follow continue with hydration therapy for now Anemia: Current hemoglobin 10.4 post packed red blood cell transfusion patient is feeling better Elevated serum osmolality 313 hyperuricemia: Likely due to intravascular volume depletion No indication for renal replacement therapy at this time continue with conservative care patient as well as family has been counseled and educated regarding all the renal related issues Renal prognosis remains guarded at this time possibly poor continue to follow Will order for renal ultrasonogram, to make sure she does not have any evidence of obstruction Paroxysmal atrial fibrillation, hypertension, systolic heart failure, ischemic cardiomyopathy, Renal prognosis long-term poor patient is prone to cardiorenal syndrome judicious hydration and close monitoring clinically, Patient has been adequately counseled and educated regarding all the renal related issues and does have a good understanding Lab results as well as renal progress was discussed with patient and simple [place] We will continue to follow and make recommendation from renal standpoint. For any questions please call me at: [phone] Objective - Vital Signs Vital signs: Vital Signs - 12hr 03/02/19 03/02/19 03/03/19 23:38 23:56 01:03 Temperature Pulse Rate 108 H 104 H Respiratory Rate Blood Pressure 107/42 O2 Sat by Pulse Oximetry 03/03/19 03/03/19 03/03/19 01:50 02:21 07:17 Temperature 98.3 F 97.8 F Pulse Rate 90 111 H 116 H Respiratory 18 20 Rate Blood Pressure 107/42 111/45 126/73 O2 Sat by Pulse 95 94 Oximetry 03/03/19 08:02 Temperature Pulse Rate 116 H Respiratory Rate Blood Pressure 126/73 O2 Sat by Pulse Oximetry - Lab 03/02/19 12:20 03/02/19 04:44 Most recent lab results Calcium 8.6 mg/dL (8.4-10.2) 03/02/19 04:44 Phosphorus 3.40 mg/dL (2.5-4.5) 03/02/19 16:31 Magnesium 2.20 mg/dL (1.7-2.3) 03/02/19 16:31 Medications & Allergies - Medications Allergies/Adverse Reactions: Allergies No Known Allergies Allergy (Verified 09/23/18 18:01) Home Medications: Home Medications Medication Instructions Recorded Confirmed Last Taken Type Isosorbide Mononitrate [Isosorbide 60 mg PO DAILY 12/27/13 03/01/19 06/29/15 History Mononitrate ER] Nefazodone HCl 100 mg PO BID 12/27/13 03/01/19 06/29/15 History Aspirin [Aspirin BABY CHEW TAB] 81 mg PO DAILY 06/30/15 03/01/19 1 Day Ago History ~06/29/15 Budesonide [Pulmicort Respules] 0.5 mg IH Q12HRT #60 nebu 07/09/15 03/01/19 Unknown Rx Ipratropium/Albuterol Sulfate 1 ampul IH TIDRT PRN #60 ampul.neb 07/09/15 03/01/19 Unknown Rx [DUONEB *Not for PRN Use*] traMADol [Ultram 50 MG tab] 50 mg PO Q6HR PRN #14 tablet 02/13/17 03/01/19 Unknown Rx Metoprolol [Lopressor TAB] 50 mg PO BID #120 tablet 09/26/18 03/01/19 Unknown Rx Coreg 6.25 mg PO BID 03/01/19 03/01/19 Unknown History Insulin Degludec [Tresiba 20 units SUB-Q QHS 03/01/19 03/01/19 Unknown History Flextouch U-100] Insulin Glargine [Lantus VIAL] 5 unit SUB-Q QHS 03/01/19 03/01/19 Unknown History Metoprolol 25 mg PO BID 03/01/19 03/01/19 Unknown History Multivit-Min/FA/Lycopen/Lutein 1 1000units PO DAILY 03/01/19 03/01/19 Unknown History [Centrum Silver Tablet] Pravastatin 40 mg PO DAILY 03/01/19 03/01/19 Unknown History Vascepa 1 g PO BID 03/01/19 03/01/19 Unknown History Xarelto 15 mg PO DAILY 03/01/19 03/01/19 Unknown History amLODIPine [Norvasc] 5 mg PO QDAY 03/01/19 03/01/19 Unknown History Active Medications: Generic Name Dose Route Start Last Admin Trade Name Freq PRN Reason Stop Dose Admin Acetaminophen 650 mg 03/01/19 20:02 Tylenol PO Q4H PRN Pain MILD(1-3)/Fever >100.5/BRICENO Albuterol/Ipratropium 1 ampul 03/01/19 20:00 Duoneb *Not For Prn Use* IH TIDRT PRN SOB/wheezing Clonidine HCl 0.1 mg 03/01/19 21:00 03/02/19 00:38 Catapres-Tts Patch TD 0.1 mg Ramos GREG Administration Hydromorphone HCl 0.25 mg 03/01/19 20:02 Dilaudid IV Q3H PRN Pain, Moderate (4-6) Ceftriaxone Sodium 1 gm in 50 mls @ 100 mls/hr 03/02/19 10:00 03/02/19 11:04 Rocephin/Ns 1 Gm/50 Ml IV 100 mls/hr Q24HR GREG Administration Protocol Sodium Chloride 1,000 mls @ 50 mls/hr 03/02/19 09:00 03/02/19 20:27 Nacl 0.9% 1000 Ml IV 50 mls/hr DIRECT GREG Administration Insulin Human Lispro 0 unit 03/02/19 00:00 03/03/19 06:23 Humalog SUB-Q Not Given Q6HR GREG Protocol Metoprolol Tartrate 5 mg 03/02/19 17:00 03/03/19 08:02 Lopressor IV 5 mg Q8H GREG Administration Ondansetron HCl 4 mg 03/01/19 20:02 Zofran IV Q8H PRN Nausea And Vomiting Pantoprazole Sodium 40 mg 03/01/19 22:00 03/02/19 21:49 Protonix IV 40 mg BID GREG Administration Sodium Chloride 10 ml 03/01/19 22:00 03/02/19 21:50 Sodium Chloride Flush Syringe 10 Ml IV 10 ml BID GREG Administration Sodium Chloride 10 ml 03/01/19 20:02 Sodium Chloride Flush Syringe 10 Ml IV PRN PRN LINE FLUSH
[2019-03-03 09:08] LABS: INR 1.44 (0.87-1.13)
[2019-03-03 09:15] LABS: Hematocrit 27.9 % (30.3-42.9); Hemoglobin 9.2 gm/dl (10.1-14.3)
[2019-03-03] MEDS: PROTONIX IV SCH (09:16)
[2019-03-03] MEDS: ROCEPHIN/NS 1 GM/50 ML 1 GM/50 ML BAG IV SCH (09:18)
[2019-03-03] MEDS: SODIUM CHLORIDE FLUSH SYRINGE 10 ML IV SCH ×2 (09:19→22:06)
--- NOTE | 2019-03-03 09:34 | Progress Note ---
Assessment and Plan Severe Anemia s/p transfusion of PRBCs Elevated transaminase Chronic kidney disease Hypertension Diabetes Cardiomyopathy, ischemic MPI 09/2017 - Fixed apical defect, no ischemia Echo 09/2017 - EF 20-25% with RWMA Permanent atrial fibrillation on Xarelto as an outpatient, now discontinued due to severe anemia Small vessel CAD Recommendations: Medical therapy for chronic systolic heart failure, small vessel coronary artery disease and atrial fibrillation rate controlled. Further anticoagulation is contraindicated at this time due to severe anemia and liver pathology. Otherwise, conservative cardiac approach to management at this time. Subjective Date of service: 03/03/19 Principal diagnosis: GI bleed Interval history: For planned EGD today. Objective Vital Signs Temp Pulse Resp BP Pulse Ox 03/03/19 08:02 116 H 126/73 03/03/19 07:17 97.8 F 116 H 20 126/73 94 03/03/19 02:21 98.3 F 111 H 18 111/45 95 03/03/19 01:50 90 107/42 03/03/19 01:03 107/42 03/02/19 23:56 104 H 03/02/19 23:38 108 H 03/02/19 19:20 98.2 F 109 H 20 128/59 93 03/02/19 18:44 95 H 118/47 03/02/19 13:21 98.1 F 111 H 20 115/61 94 - Physical Examination General: No Apparent Distress HEENT: Positive: PERRL Neck: Positive: trachea midline Cardiac: Positive: irregularly irregular Lungs: Positive: Decreased Breath Sounds Neuro: Positive: Grossly Intact - Labs and Meds Coagulation 03/02/19 03/03/19 Range/Units 09:16 08:19 PT 22.9 H 17.2 H (12.2-14.9) Sec. INR 2.07 H 1.44 H (0.87-1.13) CBC 03/02/19 03/03/19 Range/Units 12:20 08: Hgb 8.8 L 9.2 L (10.1-14.3) gm/dl Hct 26.8 L 27.9 L (30.3-42.9) %
[2019-03-03] MEDS ORDERED: NACL 0.9% 1000 ML 1,000 ML IV SCH (12:00)
--- NOTE | 2019-03-03 12:07 | Anesthesia Day of Surgery ---
Anesthesia Day of Surgery - Day of Surgery Patient Examined: Yes Patient H&P Reviewed: Yes Patient is NPO: Yes
--- NOTE | 2019-03-03 12:14 | Anesthesia Consultation ---
Anesthesia Consult and Med Hx Date of service: 03/03/19 - Airway Anesthetic Teeth Evaluation: Good ROM Head & Neck: Adequate Mental/Hyoid Distance: Adequate Mallampati Class: Class II Intubation Access Assessment: Good - Pre-Operative Health Status ASA Pre-Surgery Classification: ASA4 Proposed Anesthetic Plan: MAC - Pulmonary Hx Asthma: No COPD: Yes Hx Pneumonia: No - Cardiovascular System Hx Hypertension: Yes Hx Coronary Artery Disease: Yes (Ischemic cardiomyopathy; EF 25%) Hx Heart Attack/AMI: Yes Hx Cardia Arrhythmia: Yes (A-Fib; Was on Xarelto, now on hold because of GI bleed) - Central Nervous System Hx Psychiatric Problems: Yes (Confusion; present) - Gastrointestinal Hx Ulcer: No (Acute GI Bleed) - Endocrine Hx Renal Disease: Yes (Acute on chronic kidney disease) Hx End Stage Renal Disease: No (UTI) Hx Non-Insulin Dependent Diabetes: Yes Hx Hypothyroidism: No Hx Hyperthyroidism: No - Hematic Hx Anemia: Yes (Severe anemia because of GI bleed-transfused) - Other Systems Hx Cancer: No - Additional Comments Anesthesia Medical History Comments: Severe Anemia. s/p transfusion of PRBCs. Elevated transaminase. Chronic kidney disease. Hypertension. Diabetes. Cardiomyopathy, ischemic. MPI 09/2017 - Fixed apical defect, no ischemia. Echo 09/2017 - EF 20-25% with RWMA. Permanent atrial fibrillation. on Xarelto as an outpatient, now discontinued due to severe anemia. Small vessel CAD
[2019-03-03] MEDS ORDERED: DIPRIVAN 10 MG/ML IV ONE ×2 (12:31→12:32)
--- NOTE | 2019-03-03 12:49 | Post Operative Note ---
Pre-op diagnosis: Anemia Post-op diagnosis: other (Gastritis, hemoptysis) Findings: 1. Mucus and blood in oropharynx c/w hemoptysis/chronic lung disease 2. Small hiatal hernia 3. Mild gastritis in antrum, cold biopsy 4. No lesions to explain significant anemia Procedure: EGD with cold biopsy Anesthesia: MAC Surgeon: ERROL VELÁZQUEZ Estimated blood loss: minimal Pathology: list (1. Gastric antrum) Specimen disposition: to lab Condition: stable Disposition: floor (Recs: 1. Would not perform colonoscopy given comorbids, age, and Cardiology does not want to continue Xarelto. 2. MVI daily therapy. 3. Protonix daily therapy. 4. OK to d/c home when taking PO. 5. Patient should get a humidifier for home O2 given hemoptysis.)
--- NOTE | 2019-03-03 13:23 | Operative Report ---
PROCEDURE PERFORMED: Esophagogastroduodenoscopy with cold biopsy. PREOPERATIVE DIAGNOSIS: Melena. POSTOPERATIVE DIAGNOSES: Hemoptysis, hiatal hernia, gastritis. ENDOSCOPIST: Rui Conn MD INSTRUMENT: Olympus video endoscope. MEDICATIONS: MAC anesthesia by Anesthesia Services. COMPLICATIONS: No apparent complications. ESTIMATED BLOOD LOSS: Minimal. SPECIMENS: Gastric antrum. IMPLANTS: None. ASSISTANTS: None. CONDITION AT COMPLETION: Stable. TECHNIQUE: The patient was informed of the risks and benefits of the procedure. She signed the informed consent to proceed. She was placed in left lateral decubitus position. The above sedative medications were given. Her vital signs remained stable throughout the procedure. The instrument was advanced from the mouth to the second portion of the duodenum under direct visualization. At that point, the bowel was insufflated and the endoscope was slowly withdrawn. FINDINGS: 1. Normal duodenum. 2. Mild erythema in the antrum of the stomach consistent with chronic gastritis, status post cold biopsy. 3. Small hiatal hernia. 4. Normal esophagus with no evidence of varices. 5. Mucus and blood in the oropharynx consistent with the patient's known history of chronic lung disease and hemoptysis. RECOMMENDATIONS: 1. I would not perform a colonoscopy at this point given the patient's comorbidities, age, and the fact that Cardiology does not want to continue anticoagulation. 2. Multivitamin daily therapy. 3. Protonix daily therapy. 4. Okay to discharge the patient home when taking oral food and medications. 5. The patient should get humidifier for home oxygen, given her hemoptysis. JOB# [id number] RADHA/NTS
[2019-03-03] MEDS ORDERED: NACL 0.9% 1000 ML 1,000 ML ONE (14:26)
--- NOTE | 2019-03-03 14:40 | Progress Note ---
Assessment and Plan Assessment and plan: Patient is a 83-year-old female with past medical history of CHF, atrial fibrillation, CKD, hypertension and chronic respiratory failure on 4 L nasal cannula presents to the emergency department via EMS from home to be checked out after she had some weakness and difficulty getting up from the b athroom. 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 Apparently the patient felt weak and lowered herself to the ground near or in the bathroom and was unable to get back up. The patient's helped her get back up into the bedroom and then he called 911. She also has dark stools for last 24 hours.Taking NSAIDS for Arthritis. Acute GI bleed with dark stools -S/P EGD 1. Mucus and blood in oropharynx c/w hemoptysis/chronic lung disease 2. Small hiatal hernia 3. Mild gastritis in antrum, cold biopsy ecs: 1. Would not perform colonoscopy given comorbids, age, and Cardiology does not want to continue Xarelto. 2. MVI daily therapy. 3. Protonix daily therapy. 4. OK to d/c home when taking PO. 5. Patient should get a humidifier for home O2 given hemoptysis.) Severe Anemia due to acute blood loss. Hemoglobin 9.8 after 2 units PRBC transfusion on 03/01/2019 Hgb was 6.6 on admission Permanent Atrial fibrillation Was on Xarelto, now on hold because of GI bleed. Now discontinued per Cardiology and discussed with the patient including assocaited risk and benefit. Patient verablized understanding. Conservative management per Cardiology Also per cardiology, "Further anticoagulation is contraindicated at this time due to severe anemia and liver pathology." VIKAS ON CKD Stage 3 With new baseline around 3.5 Hypertension Monitor BP Chronic systolic CHF/ Cardiomyopathy, ischemic MPI 09/2017 - Fixed apical defect, no ischemia Echo 09/2017 - EF 20-25% with RWMA Cardiology following No shortness of breath Acute on chronic kidney disease Nephrology following Renal u/s pending Renal prognosis long-term poor patient is prone to cardiorenal syndrome judicious hydration and close monitoring clinically, also extensive counselling on need to stop NSAIDS given to patient Hyperuricemia likely due to intravascular volume depletion continue to monitor and follow continue with hydration therapy for now Diabetes mellitus type 2 Fingerstick qac and hs Ischemic cardiomyopathy EF 20-25% Transaminitis CAD Medical management UTI started on Rocephin Full code status Anticipate discharge in am. History Interval history: Patient seen and examined Following return from egd. She denies any chest pain, nausea or vomiting. Hospitalist Physical - Physical exam Narrative exam: Gen: Not in acute distress, lying in bed, HEENT: Normocephalic, atraumatic Neck: supple, no JVD Heart: S1 and S2 reg, no murmurs, rubs or gallop Lungs: DIMINSHED no crackles, no rhonchi ON HOME O2 Abd: soft, non tender, non distended, normal BS, Ext: No edema, no clubbing, no cyanosis Neuro: Awake,alert, No focal neuro signs Psych: normal mood - Constitutional Vitals: Temp Pulse Resp BP Pulse Ox 98.4 F 110 H 19 134/56 92 03/03/19 12:48 03/03/19 13:25 03/03/19 13:25 03/03/19 13:25 03/03/19 13:25 General appearance: Present: no acute distress Results - Labs CBC & Chem 7: 03/03/19 08:19 03/02/19 04:44 Labs: Laboratory Last Values WBC 9.6 K/mm3 (4.5-11.0) 03/02/19 04:44 RBC 3.09 M/mm3 (3.65-5.03) L 03/02/19 04:44 Hgb 9.2 gm/dl (10.1-14.3) L 03/03/19 08:19 Hct 27.9 % (30.3-42.9) L 03/03/19 08:19 MCV 91 fl (79-97) 03/02/19 04:44 MCH 30 pg (28-32) 03/02/19 04:44 MCHC 33 % (30-34) 03/02/19 04:44 RDW 20.7 % (13.2-15.2) H 03/02/19 04:44 Plt Count 327 K/mm3 (140-440) 03/02/19 04:44 Lymph % (Auto) 9.9 % (13.4-35.0) L 03/02/19 04:44 Greenlee % (Auto) 10.4 % (0.0-7.3) H 03/02/19 04:44 Eos % (Auto) 1.3 % (0.0-4.3) 03/02/19 04:44 Baso % (Auto) 0.4 % (0.0-1.8) 03/02/19 04:44 Lymph # 1.0 K/mm3 (1.2-5.4) L 03/02/19 04:44 Greenlee # 1.0 K/mm3 (0.0-0.8) H 03/02/19 04:44 Eos # 0.1 K/mm3 (0.0-0.4) 03/02/19 04:44 Baso # 0.0 K/mm3 (0.0-0.1) 03/02/19 04:44 Seg Neutrophils % 78.0 % (40.0-70.0) H 03/02/19 04:44 Seg Neutrophils # 7.5 K/mm3 (1.8-7.7) 03/02/19 04:44 PT 17.2 Sec. (12.2-14.9) H 03/03/19 08:19 INR 1.44 (0.87-1.13) H 03/03/19 08:19 APTT 37.5 Sec. (24.2-36.6) H 03/01/19 10:34 Sodium 138 mmol/L (137-145) 03/02/19 04:44 Potassium 3.9 mmol/L (3.6-5.0) 03/02/19 04:44 Chloride 100.3 mmol/L (98-107) 03/02/19 04:44 Carbon Dioxide 23 mmol/L (22-30) 03/02/19 04:44 19 mmol/L 03/02/19 04:44 BUN 75 mg/dL (7-17) H 03/02/19 04:44 3.5 mg/dL (0.7-1.2) H 03/02/19 04:44 Estimated GFR 12 ml/min 03/02/19 04:44 21 % 03/02/19 04:44 Glucose 104 mg/dL (65-100) H 03/02/19 04:44 POC Glucose 107 (70-105) H 03/03/19 06:17 5.8 % (4-6) 03/01/19 09:00 313 Mosm/kg 03/02/19 09:22 11.8 mg/dL (3.5-7.6) H 03/02/19 09:22 Calcium 8.6 mg/dL (8.4-10.2) 03/02/19 04:44 Phosphorus 3.40 mg/dL (2.5-4.5) 03/02/19 16:31 Magnesium 2.20 mg/dL (1.7-2.3) 03/02/19 16:31 1.80 mg/dL (0.1-1.2) H 03/02/19 04:44 AST 139 units/L (5-40) H 03/02/19 04:44 ALT 192 units/L (7-56) H 03/02/19 04:44 64 units/L (35-129) 03/02/19 04:44 80 units/L (30-135) 03/02/19 09:22 0.014 ng/mL (0.00-0.029) 03/01/19 09:00 NT-Pro-B Natriuret Pep 03509 pg/mL (0-900) H 03/02/19 06:55 6.4 g/dL (6.3-8.2) 03/02/19 04:44 3.5 g/dL (3.9-5) L 03/02/19 04:44 1.2 % 03/02/19 04:44 TSH 2.230 mlU/mL (0.270-4.200) 03/01/19 09:00 Yellow (Yellow) 03/01/19 09:26 Clear (Clear) 03/01/19 09:26 8.0 (5.0-7.0) H 03/01/19 09:26 Ur Specific Swain 1.012 (1.003-1.030) 03/01/19 09:26 30 mg/dl mg/dL (Negative) 03/01/19 09:26 Neg mg/dL (Negative) 03/01/19 09:26 Neg mg/dL (Negative) 03/01/19 09:26 Neg (Negative) 03/01/19 09:26 Neg (Negative) 03/01/19 09:26 Neg (Negative) 03/01/19 09:26 < 2.0 mg/dL (<2.0) 03/01/19 09:26 Ur Leukocyte Esterase Mod (Negative) 03/01/19 09:26 9.0 /HPF (0.0-6.0) H 03/01/19 09:26 < 1.0 /HPF (0.0-6.0) 03/01/19 09:26 U Epithel Cells (Auto) 3.0 /HPF (0-13.0) 03/01/19 09:26 Few /HPF 03/01/19 09:26 Hep Bs Antigen Nonreactive (Negative) 03/03/19 05:49 Non-reactive (NonReactive) 03/03/19 05:49 Blood Type O POSITIVE 03/01/19 10:34 Antibody Screen Negative 03/01/19 10:34 Crossmatch See Detail 03/01/19 10:34 Active Medications - Current Medications Current Medications: Generic Name Dose Route Start Last Admin Trade Name Freq PRN Reason Stop Dose Admin Acetaminophen 650 mg 03/01/19 20:02 Tylenol PO Q4H PRN Pain MILD(1-3)/Fever >100.5/BRICENO Albuterol/Ipratropium 1 ampul 03/01/19 20:00 Duoneb *Not For Prn Use* IH TIDRT PRN SOB/wheezing Clonidine HCl 0.1 mg 03/01/19 21:00 03/02/19 00:38 Catapres-Tts Patch TD 0.1 mg Ramos GREG Administration Ceftriaxone Sodium 1 gm in 50 mls @ 100 mls/hr 03/02/19 10:00 03/03/19 09:18 Rocephin/Ns 1 Gm/50 Ml IV 100 mls/hr Q24HR GREG Administration Protocol Insulin Human Lispro 0 unit 03/02/19 00:00 03/03/19 14:23 Humalog SUB-Q Not Given Q6HR GREG Protocol Metoprolol Tartrate 5 mg 03/02/19 17:00 03/03/19 08:02 Lopressor IV 5 mg Q8H GREG Administration Ondansetron HCl 4 mg 03/01/19 20:02 Zofran IV Q8H PRN Nausea And Vomiting Pantoprazole Sodium 40 mg 03/04/19 10:00 Protonix PO QDAY GREG Sodium Chloride 10 ml 03/01/19 22:00 03/03/19 09:19 Sodium Chloride Flush Syringe 10 Ml IV 10 ml BID GREG Administration Sodium Chloride 10 ml 03/01/19 20:02 Sodium Chloride Flush Syringe 10 Ml IV PRN PRN LINE FLUSH
--- NOTE | 2019-03-03 14:49 | Ultrasound Report ---
ULTRASOUND RENAL INDICATION / CLINICAL INFORMATION: Acute kidney injury. COMPARISON: None available. FINDINGS: RIGHT KIDNEY: Length = 11.2 cm. [normal > 9 cm] - Parenchymal Thickness = 1.8 cm. [normal > 1.5 cm] - Echogenicity: Increased - Hydronephrosis: None. - Cyst or mass: No significant abnormality. - Stones: Multiple echogenic foci are noted in both kidneys consistent with small calyceal stones. LEFT KIDNEY: Length = 11.8 cm. [normal > 9 cm] - Parenchymal Thickness = 1.4 cm. [normal > 1.5 cm] - Echogenicity: Increased - Hydronephrosis: None. - Cyst or mass: 3 small cortical cysts are noted in the right kidney measuring up to 1.5 cm. - Stones: None seen. URINARY BLADDER: No significant abnormality. FREE FLUID: None. ADDITIONAL FINDINGS: None. IMPRESSION: Nonspecific renal parenchymal disease. No obstructive uropathy. A few tiny right renal stones. Left renal cysts. Signer Name: Ranjith Genao Jr, MD Signed: 03/03/2019 2:44 PM Workstation Name: [id number]
[2019-03-04 03:08] LABS: Calcium 8.3 mg/dL (8.4-10.2)
[2019-03-04 03:23] LABS: Hematocrit 29.2 % (30.3-42.9); Hemoglobin 9.6 gm/dl (10.1-14.3); Mean Corpuscular HGB Conc 33 % (30-34); Mean Corpuscular Volume 92 fl (79-97); Mean Platelet Volume 6.8 fl (6-12); Platelet Count 302 K/mm3 (140-440); Red Blood Count 3.18 M/mm3 (3.65-5.03); Red Cell Distribution Width 20.4 % (13.2-15.2)
[2019-03-04] MEDS: LOPRESSOR IV SCH ×2 (03:26→08:01)
[2019-03-04] MEDS: HumaLOG SUB-Q SCH (07:33)
[2019-03-04 08:03] VITALS: BP 130/84
[2019-03-04] MEDS: ROCEPHIN/NS 1 GM/50 ML 1 GM/50 ML BAG IV SCH (09:10)
[2019-03-04] MEDS: SODIUM CHLORIDE FLUSH SYRINGE 10 ML IV SCH (09:11)
[2019-03-04] MEDS ORDERED: PROTONIX PO SCH (10:00)
--- NOTE | 2019-03-04 10:06 | Progress Note ---
<LUIS FELIPE LANDRY - Last Filed: 03/04/19 10:04> Assessment and Plan Severe Anemia s/p transfusion of PRBCs s/p EGD Elevated transaminase trending downwards Chronic kidney disease Hypertension Diabetes Cardiomyopathy, ischemic MPI 09/2017 - Fixed apical defect, no ischemia Echo 09/2017 - EF 20-25% with RWMA Permanent atrial fibrillation Xarelto discontinued. Patient is now considered not a candidate for anticoagulation due to severe anemia. Small vessel CAD Recommendations: Medical therapy for chronic systolic heart failure, small vessel coronary artery disease and atrial fibrillation rate controlled. Otherwise, conservative cardiac management. Subjective Date of service: 03/04/19 Principal diagnosis: GI bleed Interval history: Patient has no complaints. Wants to go home today. Objective Vital Signs Temp Pulse Pulse Resp BP Pulse Ox 03/04/19 08:01 88 130/84 03/04/19 07:22 98.4 F 120 H 20 123/43 89 03/04/19 07:05 108 H 03/04/19 02:34 98.4 F 20 130/76 100 03/03/19 22:00 106 H 20 95 03/03/19 19:30 99.3 F 99 H 18 122/47 96 03/03/19 16:26 124 H 137/69 03/03/19 14:00 97.7 F 121 H 20 140/54 95 03/03/19 13:25 110 H 19 134/56 92 03/03/19 13:13 108 H 17 133/40 93 03/03/19 13:02 95 H 16 122/53 93 03/03/19 12:54 102 H 12 106/69 92 03/03/19 12:48 98.4 F 93 H 92 H 116/52 93 03/03/19 11:34 98.3 F 96 H 14 132/81 94 03/03/19 11:28 98.3 F 96 H 14 132/81 94 - Physical Examination General: No Apparent Distress HEENT: Positive: PERRL Neck: Positive: trachea midline Cardiac: Positive: irregularly irregular Lungs: Positive: Decreased Breath Sounds Neuro: Positive: Grossly Intact - Labs and Meds CBC 03/04/19 Range/Units 02:31 WBC 7.1 (4.5-11.0) K/mm3 RBC 3.18 L (3.65-5.03) M/mm3 Hgb 9.6 L (10.1-14.3) gm/dl Hct 29.2 L (30.3-42.9) % Plt Count 302 (140-440) K/mm3 Comprehensive Metabolic Panel 03/04/19 Range/Units 02:31 Sodium 145 D (137-145) mmol/L Potassium 3.6 (3.6-5.0) mmol/L Chloride 106.4 (98-107) mmol/L Carbon Dioxide 28 (22-30) mmol/L BUN 53 H (7-17) mg/dL Creatinine 2.8 H (0.7-1.2) mg/dL Glucose 136 H (65-100) mg/dL Calcium 8.3 L (8.4-10.2) mg/dL <OTILIA GARIBAY - Last Filed: 03/04/19 13:06> Assessment and Plan I seen and evaluated the patient and agree with the assessment and plan. Patient is admitted with ischemic cardiomyopathy with ejection fraction 20-25% permanent atrial fibrillation. Recommend continuation of medical therapy for treatment of ischemic cardiomyopathy and underlying coronary artery disease. At this time the patient is treated with rate control strategy for permanent atrial fibrillation. However, anticoagulation has been discontinued as patient is no longer a good candidate for anticoagulation due to severe anemia. Objective Vital Signs Temp Pulse Pulse Resp BP Pulse Ox 03/04/19 10:00 102 H 102 H 20 96 03/04/19 08:01 88 130/84 03/04/19 07:22 98.4 F 120 H 20 123/43 89 03/04/19 07:05 108 H 03/04/19 02:34 98.4 F 20 130/76 100 03/03/19 22:00 106 H 20 95 03/03/19 19:30 99.3 F 99 H 18 122/47 96 03/03/19 16:26 124 H 137/69 03/03/19 14:00 97.7 F 121 H 20 140/54 95 03/03/19 13:25 110 H 19 134/56 92 03/03/19 13:13 108 H 17 133/40 93 - Labs and Meds CBC 03/04/19 Range/Units 02:31 WBC 7.1 (4.5-11.0) K/mm3 RBC 3.18 L (3.65-5.03) M/mm3 Hgb 9.6 L (10.1-14.3) gm/dl Hct 29.2 L (30.3-42.9) % Plt Count 302 (140-440) K/mm3 Comprehensive Metabolic Panel 03/04/19 Range/Units 02:31 Sodium 145 D (137-145) mmol/L Potassium 3.6 (3.6-5.0) mmol/L Chloride 106.4 (98-107) mmol/L Carbon Dioxide 28 (22-30) mmol/L BUN 53 H (7-17) mg/dL Creatinine 2.8 H (0.7-1.2) mg/dL Glucose 136 H (65-100) mg/dL Calcium 8.3 L (8.4-10.2) mg/dL
--- NOTE | 2019-03-04 10:18 | Discharge Summary ---
Providers - Providers Date of Admission: 03/01/19 12:51 Attending physician: LEMUEL ALICEA MD 03/01/19 10:57 Consult to Physician [CONS] Routine Comment: called answeing serv./ dedrick Consulting Provider: ERROL VELÁZQUEZ Physician Instructions: Reason For Exam: Rectal bleeding 03/01/19 16:19 Consult to Physician [CONS] Routine Comment: called ans. serv./ dedrick Consulting Provider: NICK COREAS Physician Instructions: Reason For Exam: CHF 03/01/19 18:12 Physical Therapy Evaluation and Treat [CONS] Routine Comment: Reason For Exam: unsteady gait 03/02/19 06:49 Consult to Physician [CONS] Routine Comment: Consulting Provider: ROBERTA BORGES Physician Instructions: Reason For Exam: VIKAS/CKD 03/02/19 11:38 Speech Therapy Evaluation and Treat [CONS] Urgent Reason For Exam: pocketing food/swallowing difficulties Primary care physician: MARCIA JONES MD Hospitalization Reason for admission: GI bleed Condition: Stable Hospital course: Secondary Coagulopathy. Original Note: Assessment and Plan Assessment and plan: Patient is a 83-year-old female with past medical history of CHF, atrial fibrillation, CKD, hypertension and chronic respiratory failure on 4 L nasal cannula presents to the emergency department via EMS from home to be ch ecked out after she had some weakness and difficulty getting up from the bathroom. 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 Apparently the patient felt weak and lowered herself to the ground near or in the bathroom and was unable to get back up. The patient's helped her get back up into the bedroom and then he called 911. She also has dark stools for last 24 hours.Taking NSAIDS for Arthritis. Acute GI bleed with dark stools -S/P EGD 1. Mucus and blood in oropharynx c/w hemoptysis/chronic lung disease 2. Small hiatal hernia 3. Mild gastritis in antrum, cold biopsy ecs: 1. Would not perform colonoscopy given comorbids, age, and Cardiology does not want to continue Xarelto. 2. MVI daily therapy. 3. Protonix daily therapy. 4. OK to d/c home when taking PO. 5. Patient should get a humidifier for home O2 given hemoptysis.) Severe Anemia due to acute blood loss. Hemoglobin 9.8 after 2 units PRBC transfusion on 03/01/2019 Hgb was 6.6 on admission Permanent Atrial fibrillation Was on Xarelto, now on hold because of GI bleed. Now discontinued per Cardiology and discussed with the patient including assocaited risk and benefit. Patient verablized understanding. Conservative management per Cardiology Also per cardiology, "Further anticoagulation is contraindicated at this time due to severe anemia and liver pathology." VIKAS ON CKD Stage 3 With new baseline around 3.5 Hypertension Monitor BP Chronic systolic CHF/ Cardiomyopathy, ischemic MPI 09/2017 - Fixed apical defect, no ischemia Echo 09/2017 - EF 20-25% with RWMA Cardiology following No shortness of breath Acute on chronic kidney disease Nephrology following Renal u/s pending Renal prognosis long-term poor patient is prone to cardiorenal syndrome judicious hydration and close monitoring clinically, also extensive counselling on need to stop NSAIDS given to patient Hyperuricemia likely due to intravascular volume depletion continue to monitor and follow continue with hydration therapy for now Diabetes mellitus type 2 Fingerstick qac and hs Ischemic cardiomyopathy EF 20-25% Transaminitis CAD Medical management UTI started on Rocephin Full code status Anticipate discharge in am. Disposition: [id number] HOME UNDER HOME [facility] Time spent for discharge: 35 mins Core Measure Documentation - Palliative Care Palliative Care/ Comfort Measures: Not Applicable Exam - Constitutional Vitals: Temp Pulse Resp BP Pulse Ox 98.4 F 88 20 130/84 89 03/04/19 07:22 03/04/19 08:01 03/04/19 07:22 03/04/19 08:01 03/04/19 07:22 Plan Activity: advance as tolerated, fall precautions Diet: low salt, renal Special Instructions: record daily weights, record daily BP diary, home health RN Follow up with: MARCIA JONES MD [Primary Care Provider] - 3-5 Days ROBERTA BORGES MD [Staff Physician] - 7 Days MARY GUERRIER MD [Staff Physician] - 7 Days Prescriptions: amLODIPine [Norvasc] 10 mg PO QDAY #60 tablet Pantoprazole [Protonix TAB] 40 mg PO QDAY #30 tablet
--- NOTE | 2019-03-04 12:39 | Gastroenterology Progress Note ---
Assessment and Plan 1.acute blood loss anemia - H/H trending up - no active signs of bleeding overnight or this am - s/p EGD yesterday that showed mucus and blood in oropharynx c/w hemoptysis/chornic lung disease, small hiatal hernia, and mild gastritis but no lesions to explain significant anemia -no plan for colonoscopy given comorbids/age and no plan to continue Xarelto per cardiology - clinically, patient is w/o GI complaints. Tolerating PO. - continue MVI and daily PPI - okay to be d/c home per our service - will sign off, please [place] if needed 2.CHF - Severe with R heart disease, and EF 20-25%. 3.pulmonary fibrosis 4.CKD Subjective Date of service: 03/04/19 Principal diagnosis: GI bleed Interval history: No acute signs of bleeding overnight or this am per nursing. Objective - Constitutional Vitals: Temp Pulse Resp BP Pulse Ox 98.4 F 102 H 20 130/84 96 03/04/19 07:22 03/04/19 10:00 03/04/19 10:00 03/04/19 08:01 03/04/19 10:00 General appearance: no acute distress - Respiratory Respiratory effort: normal - Cardiovascular Rhythm: other (tachycardia) - Gastrointestinal General gastrointestinal: Present: soft, non-tender, non-distended, normal bowel sounds - Labs CBC & Chem 7: 03/04/19 02:31 03/04/19 02:31 Labs: Laboratory Results - last 24 hr 03/03/19 03/03/19 03/04/19 16:52 21:47 02:31 WBC 7.1 RBC 3.18 L Hgb 9.6 L Hct 29.2 L MCV 92 MCH 30 MCHC 33 RDW 20.4 H Plt Count 302 Sodium Potassium Chloride Carbon Dioxide Anion Gap BUN Creatinine Estimated GFR BUN/Creatinine Ratio Glucose POC Glucose 180 H 205 H Calcium 03/04/19 03/04/19 02:31 07:26 WBC RBC Hgb Hct MCV MCH MCHC RDW Plt Count Sodium 145 D Potassium 3.6 Chloride 106.4 Carbon Dioxide 28 Anion Gap 14 BUN 53 H Creatinine 2.8 H Estimated GFR 16 BUN/Creatinine Ratio 19 Glucose 136 H POC Glucose 107 H Calcium 8.3 L
--- NOTE | 2019-03-04 13:23 | Progress Note ---
Subjective Principal diagnosis: GI bleed Interval history: Patient was seen today for follow-up on multiple renal related issues Patient denies any complaints of chest pain shortness of breath nausea vomiting Renal function is much better Patient will need to make a follow-up appointment in the office upon discharge Creatinine is relatively better Events over 24 hours were noted Vitals intake output medications were reviewed Allergies: Reviewed Social/family history: Reviewed Physical examination: Gen.: No acute distress HEENT: Oral mucosa moist, no icterus Neck: Supple no thyromegaly maass or JVD Chest: Clear to auscultation Heart: Regular rate and rhythm S1-S2 heard no S3-S4 Abdomen: Soft nontender no suprapubic masses nor organomegaly Extremity: Dry skin less than 1+ edema,No petechial rashes Psych: No evidence of any agitation and aggression noted Neurological: Alert awake Assessment and plan Acute kidney injury: Renal function appears to re have improved remarkably well She will need to be seen in the office next week Time patient waited long time before she came to the hospital she was instructed not to wait when she is sick Given my card to make an appointment in the office for follow-up next week Hyperuricemia likely due to intravascular volume depletion continue to monitor and follow continue with hydration therapy for now Anemia: Current hemoglobin 10.4 post packed red blood cell transfusion patient is feeling better Elevated serum osmolality 313 hyperuricemia: Likely due to intravascular volume depletion No indication for renal replacement therapy at this time continue with co nservative care patient as well as family has been counseled and educated regarding all the renal related issues Renal prognosis remains guarded at this time possibly poor continue to follow Will order for renal ultrasonogram, to make sure she does not have any evidence of obstruction Paroxysmal atrial fibrillation, hypertension, systolic heart failure, ischemic cardiomyopathy, For any questions please call me at: [phone] Objective - Vital Signs Vital signs: Vital Signs - 12hr 03/04/19 03/04/19 03/04/19 02:34 07:05 07:22 Temperature 98.4 F 98.4 F Pulse Rate 108 H 120 H Pulse Rate [ From Monitor] Respiratory 20 20 Rate Blood Pressure 130/76 123/43 O2 Sat by Pulse 100 89 Oximetry 03/04/19 03/04/19 08:01 10:00 Temperature Pulse Rate 88 102 H Pulse Rate [ 102 H From Monitor] Respiratory 20 Rate Blood Pressure 130/84 O2 Sat by Pulse 96 Oximetry - Lab 03/04/19 02:31 03/04/19 02:31 Most recent lab results Calcium 8.3 mg/dL (8.4-10.2) L 03/04/19 02:31 Phosphorus 3.40 mg/dL (2.5-4.5) 03/02/19 16:31 Magnesium 2.20 mg/dL (1.7-2.3) 03/02/19 16:31 Medications & Allergies - Medications Allergies/Adverse Reactions: Allergies No Known Allergies Allergy (Verified 09/23/18 18:01) Home Medications: Home Medications Medication Instructions Recorded Confirmed Last Taken Type Isosorbide Mononitrate [Isosorbide 60 mg PO DAILY 12/27/13 03/01/19 06/29/15 History Mononitrate ER] Nefazodone HCl 100 mg PO BID 12/27/13 03/01/19 06/29/15 History Aspirin [Aspirin BABY CHEW TAB] 81 mg PO DAILY 06/30/15 03/01/19 1 Day Ago History ~06/29/15 Budesonide [Pulmicort Respules] 0.5 mg IH Q12HRT #60 nebu 07/09/15 03/01/19 Unknown Rx Ipratropium/Albuterol Sulfate 1 ampul IH TIDRT PRN #60 ampul.neb 07/09/15 03/01/19 Unknown Rx [DUONEB *Not for PRN Use*] traMADol [Ultram 50 MG tab] 50 mg PO Q6HR PRN #14 tablet 02/13/17 03/01/19 Unknown Rx Metoprolol [Lopressor TAB] 50 mg PO BID #120 tablet 09/26/18 03/01/19 Unknown Rx Coreg 6.25 mg PO BID 03/01/19 03/01/19 Unknown History Insulin Degludec [Tresiba 20 units SUB-Q QHS 03/01/19 03/01/19 Unknown History Flextouch U-100] Insulin Glargine [Lantus VIAL] 5 unit SUB-Q QHS 03/01/19 03/01/19 Unknown History Multivit-Min/FA/Lycopen/Lutein 1 1000units PO DAILY 03/01/19 03/01/19 Unknown History [Centrum Silver Tablet] Pravastatin 40 mg PO DAILY 03/01/19 03/01/19 Unknown History Vascepa 1 g PO BID 03/01/19 03/01/19 Unknown History Pantoprazole [Protonix TAB] 40 mg PO QDAY #30 tablet 03/04/19 Unknown Rx amLODIPine [Norvasc] 10 mg PO QDAY #60 tablet 03/04/19 Unknown Rx Active Medications: Generic Name Dose Route Start Last Admin Trade Name Freq PRN Reason Stop Dose Admin Acetaminophen 650 mg 03/01/19 20:02 Tylenol PO Q4H PRN Pain MILD(1-3)/Fever >100.5/BRICENO Albuterol/Ipratropium 1 ampul 03/01/19 20:00 Duoneb *Not For Prn Use* IH TIDRT PRN SOB/wheezing Clonidine HCl 0.1 mg 03/01/19 21:00 03/02/19 00:38 Catapres-Tts Patch TD 0.1 mg Ramos GREG Administration Ceftriaxone Sodium 1 gm in 50 mls @ 100 mls/hr 03/02/19 10:00 03/04/19 09:10 Rocephin/Ns 1 Gm/50 Ml IV 100 mls/hr Q24HR GREG Administration Protocol Insulin Human Lispro 0 unit 03/03/19 16:30 03/04/19 07:33 Humalog SUB-Q Not Given ACHS GREG Protocol Metoprolol Tartrate 5 mg 03/02/19 17:00 03/04/19 08:01 Lopressor IV 5 mg Q8H GREG Administration Ondansetron HCl 4 mg 03/01/19 20:02 Zofran IV Q8H PRN Nausea And Vomiting Pantoprazole Sodium 40 mg 03/04/19 10:00 03/04/19 09:10 Protonix PO 40 mg QDAY GREG Administration Sodium Chloride 10 ml 03/01/19 22:00 03/04/19 09:11 Sodium Chloride Flush Syringe 10 Ml IV 10 ml BID GREG Administration Sodium Chloride 10 ml 03/01/19 20:02 Sodium Chloride Flush Syringe 10 Ml IV PRN PRN LINE FLUSH
[2019-03-08] MEDS ORDERED: CATAPRES-TTS PATCH TD SCH (10:00)
== END 2019-03-04 13:55 | disposition home health service (06) | DRG 377 ==
LOC: ED 08:35 → 2B-ACE 12:51 → UNDODISIN 03-02 17:15
PROVIDERS: ADMIT Internal Medicine; ATTEND Internal Medicine
PROC: 30233N1 Transfusion of Nonautologous Red Blood Cells into Peripheral Vein, Percutaneous Approach (ICD-10-PCS; 2019-03-01)
PROC: 0DB68ZX Excision of Stomach, Via Natural or Artificial Opening Endoscopic, Diagnostic (ICD-10-PCS; principal; 2019-03-03)
DX: K29.61 Other gastritis with bleeding (principal); N17.0 Acute kidney failure with tubular necrosis; D62 Acute posthemorrhagic anemia; E44.1 Mild protein-calorie malnutrition; I13.0 Hypertensive heart and chronic kidney disease with heart failure and stage 1 through stage 4 chronic kidney disease, or unspecified chronic kidney disease; J96.10 Chronic respiratory failure, unspecified whether with hypoxia or hypercapnia; I50.42 Chronic combined systolic (congestive) and diastolic (congestive) heart failure; N30.00 Acute cystitis without hematuria; I42.0 Dilated cardiomyopathy; D68.9 Coagulation defect, unspecified; R04.2 Hemoptysis; N18.4 Chronic kidney disease, stage 4 (severe); I25.10 Atherosclerotic heart disease of native coronary artery without angina pectoris; E11.22 Type 2 diabetes mellitus with diabetic chronic kidney disease; E79.0 Hyperuricemia without signs of inflammatory arthritis and tophaceous disease; I48.0 Paroxysmal atrial fibrillation; I25.5 Ischemic cardiomyopathy; J84.10 Pulmonary fibrosis, unspecified; K44.9 Diaphragmatic hernia without obstruction or gangrene; Z68.27 Body mass index [BMI] 27.0-27.9, adult; Z99.81 Dependence on supplemental oxygen; I25.2 Old myocardial infarction; Z87.442 Personal history of urinary calculi; Z90.49 Acquired absence of other specified parts of digestive tract; Z82.49 Family history of ischemic heart disease and other diseases of the circulatory system; Z79.4 Long term (current) use of insulin; Z79.82 Long term (current) use of aspirin; Z79.01 Long term (current) use of anticoagulants; Z71.89 Other specified counseling
CPT/HCPCS: 36415; 36430; 70450; 71045; 76770; 80048; 80053; 81001; 82270; 82550; 82962; 83036; 83735; 83880; 83930; 84100; 84443; 84484; 84550; 85014; 85018; 85025; 85027; 85610; 85730; 86706; 86803; 86850; 86900; 86901; 86920; 87040; 87086; 88305; 88342; 93005; 93010; 94644; 96360; 96361; G0378; C9113; J0696; J0885; J1815; J1940; J2704; J2916; J7030; J7040; P9016

== ENCOUNTER 2019-03-27 13:10 | Outpatient (CLI) | payer MEDICARE, OTHER ==
--- NOTE | 2019-03-27 14:27 | XRay Report ---
CHEST 2 VIEWS INDICATION / CLINICAL INFORMATION: Dyspnea with cough COMPARISON: None available. FINDINGS: SUPPORT DEVICES: None. HEART / MEDIASTINUM: No significant abnormality. LUNGS / PLEURA: Persistent interstitial prominence with bronchial wall thickening noted bilaterally. No acute air space disease is identified. No change from 03/01/2019. Signer Name: Paddy Crocker MD Signed: 03/27/2019 2:22 PM Workstation Name: [id number]
== END 2019-03-27 13:11 | disposition home or self-care (01) ==
LOC: XRAY 13:10
PROVIDERS: ATTEND Internal Medicine Nephrology
DX: J98.09 Other diseases of bronchus, not elsewhere classified (principal); E78.00 Pure hypercholesterolemia, unspecified; I48.91 Unspecified atrial fibrillation; E11.22 Type 2 diabetes mellitus with diabetic chronic kidney disease; I13.0 Hypertensive heart and chronic kidney disease with heart failure and stage 1 through stage 4 chronic kidney disease, or unspecified chronic kidney disease; N18.4 Chronic kidney disease, stage 4 (severe); I50.9 Heart failure, unspecified; Z90.49 Acquired absence of other specified parts of digestive tract; Z90.89 Acquired absence of other organs; Z79.01 Long term (current) use of anticoagulants
CPT/HCPCS: 71046